=== PATIENT | female | born 1940 | race Caucasian/White ===

== ENCOUNTER → 2023-09-24 15:25 | Outpatient (REF) | payer MEDICARE, OTHER, SELFPAY ==
[2023-09-24 15:42] LABS: % Basophils 0.7 % (0-2); % Immature Granulocytes 0.7 % (0-0.5); % Lymphocytes 18.6 % (20.5-51.1); % Monocytes 8.6 % (1.7-9.3); % Neutrophils 68.4 % (42.2-75.2); Absolute Basophils 0.1 10^3/uL (0-0.2); Absolute Eosinophils 0.2 10^3/uL (0-0.7); Absolute Immature Granulocytes 0.1 10^3/uL (0-0.05); Absolute Lymphocytes 1.3 10^3/uL (1.2-3.4); Absolute Monocytes 0.6 10^3/uL (0.1-0.6); Absolute Neutrophils 4.8 10^3/uL (1.4-6.5); Hematocrit 36.3 % (37.0-47.0); Hemoglobin 12.3 g/dL (12.0-16.0); Mean Corp Hgb Conc. 33.9 g/dL (33.0-37.0); Mean Corpuscular Hgb 31.9 pg (27.0-31.0); Nucleated Red Blood Cells % 0 %; Platelet Count 206 10^3/uL (130-400); Red Blood Cell Count 3.86 10^6/uL (4.20-5.40); Red Cell Dist. Width 13.6 % (11.5-14.5)
[2023-09-24 16:01] LABS: ALT (SGPT) 16 U/L (0-35); AST (SGOT) 16 U/L (14-36); Albumin 3.6 g/dl (3.5-5.0); Alkaline Phosphatase 173 U/L (38-126); Blood Urea Nitrogen 20 mg/dl (7-17); Carbon Dioxide 23 mmol/L (22-30); Chloride 102 mmol/L (98-107); Glucose 268 mg/dl (70-99); HDL Cholesterol 68 mg/dl; LDL Cholesterol, Calculated 134 mg/dl; Potassium 4.3 mmol/L (3.5-5.1); Sodium 134 mmol/L (135-145); Total Bilirubin 0.6 mg/dl (0.2-1.3); Total Cholesterol 233 mg/dl (50-199); Triglyceride 155 mg/dl (10-149); Very Low Density Lipoprotein 31 mg/dl (0-30); eGFR > 60.00
[2023-09-24 16:17] LABS: Free T4 1.25 ng/dl (0.78-2.19)
[2023-09-24 16:31] LABS: TSH 2.99 uIU/ml (0.47-4.68)
[2023-09-25 09:24] LABS: Glycohemoglobin (HgbA1c) 9.4 % (4.0-5.6)
== END ==
LOC: OLABLV 15:25
PROVIDERS: ATTENDING PHYSICIAN Internal Medicine
DX: E78.5 Hyperlipidemia, unspecified (principal); E03.9 Hypothyroidism, unspecified; E11.9 Type 2 diabetes mellitus without complications
CPT/HCPCS: 36415; 80053; 80061; 83036; 84439; 84443; 85025

== ENCOUNTER → 2023-09-25 11:14 | Outpatient (REF) | payer MEDICARE, OTHER, SELFPAY ==
[2023-09-25 12:31] LABS: Microalbumin, Random Urine 0.6 mg/dl (0.6-1.7)
== END ==
LOC: OLABLV 11:14
PROVIDERS: ATTENDING PHYSICIAN Internal Medicine
DX: R80.1 Persistent proteinuria, unspecified (principal)
CPT/HCPCS: 82043

== ENCOUNTER → 2023-10-01 09:30 | Outpatient (REF) | payer MEDICARE, OTHER, SELFPAY ==
[2023-10-01 11:21] LABS: Blood Urea Nitrogen 19 mg/dl (7-17); Calcium 9.2 mg/dl (8.4-10.2); Carbon Dioxide 23 mmol/L (22-30); Chloride 105 mmol/L (98-107); Glucose 240 mg/dl (70-99); Potassium 4.4 mmol/L (3.5-5.1); Sodium 133 mmol/L (135-145); eGFR > 60.00
== END ==
LOC: OLABLV 09:30
PROVIDERS: ATTENDING PHYSICIAN Registered Nurse
DX: R60.9 Edema, unspecified (principal)
CPT/HCPCS: 36415; 80048

== ENCOUNTER → 2023-10-03 10:52 | Outpatient (REF) | payer MEDICARE, OTHER, SELFPAY ==
[2023-10-03 13:02] LABS: Blood Urea Nitrogen 22 mg/dl (7-17); Calcium 8.9 mg/dl (8.4-10.2); Carbon Dioxide 23 mmol/L (22-30); Chloride 107 mmol/L (98-107); Glucose 263 mg/dl (70-99); Potassium 4.2 mmol/L (3.5-5.1); Sodium 138 mmol/L (135-145); eGFR > 60.00
== END ==
LOC: OLABLV 10:52
PROVIDERS: ATTENDING PHYSICIAN Registered Nurse
DX: I51.89 Other ill-defined heart diseases (principal)
CPT/HCPCS: 36415; 80048

== ENCOUNTER → 2023-12-31 10:32 | Outpatient (REF) | payer MEDICARE, SELFPAY ==
[2023-12-31 11:56] LABS: ALT (SGPT) 10 U/L (0-35); AST (SGOT) 16 U/L (14-36); Albumin 3.5 g/dl (3.5-5.0); Alkaline Phosphatase 162 U/L (38-126); Blood Urea Nitrogen 17 mg/dl (7-17); Calcium 9.2 mg/dl (8.4-10.2); Carbon Dioxide 24 mmol/L (22-30); Chloride 108 mmol/L (98-107); Glucose 236 mg/dl (70-99); Potassium 3.9 mmol/L (3.5-5.1); Sodium 140 mmol/L (135-145); Total Bilirubin 0.7 mg/dl (0.2-1.3); Total Protein 5.9 g/dl (6.3-8.2); eGFR > 60.00
[2023-12-31 12:48] LABS: Glycohemoglobin (HgbA1c) 11.9 % (4.0-5.6)
== END ==
LOC: OLABLV 10:32
PROVIDERS: ATTENDING PHYSICIAN Internal Medicine
DX: E11.9 Type 2 diabetes mellitus without complications (principal)
CPT/HCPCS: 36415; 80053; 83036

== ENCOUNTER 2024-03-07 17:56 | Emergency (ER) | payer MEDICARE, OTHER, SELFPAY ==
[2024-03-07 18:08] VITALS: BP 116/65
[2024-03-07 18:09] VITALS: BMI 25.9
--- NOTE | 2024-03-07 18:16 | ED.GENMED ---
History of Present Illness
General
Chief Complaint: Fall
Source: patient
Exam Limitations: none
Time Seen by Provider: 03/07/24 17:56
History of Present Illness
History of Present Illness:
This is a 83 year old female that is brought in by ambulance with c/o fall. States that she was going to her closet with her walker and her knee's started to give out and she fell down on her knee's and then her head hit the wall of the closet.
States that there was no LOC. States that she was unable to get up. States that she has a slight headache, lower neck discomfort and that she hit the left forehead but her headache in on the top back of her head. Denies any fever, chills, chest
pain, SOB, abd pain, nausea, vomiting, diarrhea, dizziness. urinary burning.
Past History
Past History
ED Past Medical History: CVA, HTN, Hypercholesterolemia, NIDDM, Hypothyroidism and Other (Parkinson's disease, Headache, Amnesia, UTI)
ED Past Surgical History: Gynecological (Tereso ovaries removed, Left and right Lumpectomy) and Other (Abd surgery with endometriosis, Tereso cataracts)
Social History
Tobacco: Former smoker
Alcohol: Occasional
Personal:
Living: custodial
Review of Systems
Review of Systems
All Other Systems: ROS reviewed and negative except as documented in HPI and ROS
Constitutional: Reports no symptoms; Denies fever or chills
EENT: Reports no symptoms
Respiratory: Reports no symptoms; Denies cough or trouble breathing
Cardiac: Reports no symptoms; Denies chest pain
ABD/GI: Reports no symptoms; Denies abdominal pain, nausea, vomiting or diarrhea
: Reports no symptoms; Denies dysuria, frequency or urgency
Musculoskeletal: Reports other (Slight cervical neck tenderness)
Skin: Reports no symptoms
Neurological: Reports headache; Denies dizzy
Psychiatric: Reports no symptoms
Phy Exam
General Physical Exam
General Presentation: well appearing and no apparent distress
General age: appears stated age
General Skin: warm and dry
General Habitus: elderly
General Mental: alert
General Hydration: dry mucous membranes
ENT Exam
ENT Exam: TM's normal, pharynx normal and neck supple
Eye Exam
Eye Exam: EOMI
Cardiovascular Exam
Cardiovascular Exam: regular rate/rhythm and normal peripheral pulses
Pulmonary Exam
Pulmonary Exam: lungs clear, no respiratory distress, no rales, chest non tender, no crackles, no rhonchi, no wheezing and no cough
Gastrointestinal Exam
Gastrointestinal Exam: normal bowel sounds, non tender, soft, no organomegaly, no pulsatile mass and non distended
Musculoskeletal Exam
Musculoskeletal Exam: full ROM, edema (+1 pitting edema of the lower legs, ) and other (Negative cervical neck or shoulder tenderness with palpation. Patient can cross over abduct, Flex elbows, Flex knee's, inversion or eversion without discomfort)
Skin Exam
Skin Exam: normal color, warm/dry, no rash and no petechia
Psychiatric Exam
Psychiatric Exam: normal mood/affect
Course
Orders/Labs/Results
Orders:
Orders
03/07/24 18:08
CT Cervical Spine W/o Iv Contr Urgent
Comment:
Reason For Exam: Fall, neck discomfot
03/07/24 18:09
CT Head W/o Iv Contrast Urgent
Comment: On plavix
Reason For Exam: fall hitting head.
Vital Signs
Initial and Last Documented VS:
Initial Vital Signs
Pulse Resp Pulse Ox
88 17 99
03/07/24 18:03 03/07/24 18:03 03/07/24 18:03
Last Documented Vital Signs
Temp Pulse Resp BP Pulse Ox
97.8 F 78 11 130/71 99
03/07/24 23:14 03/07/24 21:03 03/07/24 19:19 03/07/24 23:11 03/07/24 23:14
MDM/Problems Addressed
Differential Diagnosis Includes:
accidental fall, Head contusion
MDM/Problems Addressed:
This is a 83 year old female that comes in with c/o fall. States that her knee's gave out on her and she fell down on her knees and then her head hit the closet wall.
Will get CT head and Cervical spine.
back into see patient. Explained that the CT of the head and cervical spine are negative for any acute process. Will walk patient with walker and if able to walk will discharge home.
Chronic conditions affecting care:
Parkinson's
Acute Exacerbation and/or Progression of Chronic Illness:
Parkinson's
*Radiology
Radiology exam reviewed: radiology read reviewed (CT head-There are no acute intracranial abnormalities. There is moderate diffuse cortical atrophy with moderate nonspecific white matter changes as described above. Left maxillary sinusitis. CT
cervical spine- no acute osseous abnormalities. Muiltilevel cervical degenerative disc disease and ) and other (CT cervical neck cont- and degenerative facet joint disease as outlined above. )
*Pulse Oximetry
Patient hypoxic: no
*EKG
Interpreted by ED Provider?: NA
Rate: EKG- N/A
*Business Development Engineer Interpretation
Rate: normal
Heart Rate: 86
Rhythm: sinus
*Critical Care Note
Total Time (30-74mins, 75-104mins- exclusive of procedures): Not Applicable
ED Attending Note
-
Portions of this chart may have been created with voice recognition software.� Occasional wrong word or��sound alike� substitutions may have occurred due to the inherent limitations of voice recognition software.
Discharge Plan
Departure
Patient Disposition: Prison/SNF
Date of Disposition: 03/07/24
Time of Disposition: 20:50
Patient with high blood pressure during this ER visit?: No
Condition: Good
Covid-19: Not Applicable
Discharge Problem:
Accidental fall
Instructions: Preventing falls in adults
Prescriptions:
No Action
aspirin 325 MG tablet
325 mg PO DAILY
glyburide 1.25 MG tablet
1.25 mg PO DAILY
ropinirole 1 mg Tablet
1 mg PO BID
cyanocobalamin (vitamin B-12) [Vitamin B-12] 1,000 mcg Tablet
1,000 mcg PO DAILY
clopidogrel [Plavix] 75 mg Tablet
75 mg PO DAILY
omeprazole 40 mg Capsule,Delayed Release(Dr/Ec)
40 mg PO QPM
levothyroxine 75 mcg Tablet
75 mcg PO DAILY
lisinopril 30 mg Tablet
30 mg PO DAILY
carbidopa-levodopa 25-100 mg Tablet
2 tab PO TID
fluticasone propionate 50 mcg/actuation [place],Suspension
1 spray INTRANASAL DAILY
godpilnlnmr-mzjvoazqa-qkn C-Mn [Glucosamine 1500 Complex] 500-400 mg Capsule
1 cap PO QPM
Systane (propylene glycol) 0.4-0.3 % Drops
1 drp BOTH EYES BID
rosuvastatin 20 mg Tablet
20 mg PO HS
memantine 5 mg Tablet
5 mg PO BID
cholecalciferol (vitamin D3) [Vitamin D3] 50 mcg (2,000 unit) Capsule
50 mcg PO DAILY
PreserVision AREDS-2
1 cap PO BID
Referrals:
Reece Perkins CRNP [Family Provider] - Call in 1-3 days for appt
Activity Restrictions/Additional Instructions:
As discussed, your CT of the head and cervical spine is negative for any acute process. Patient was OOB and able to walk with a walker. Patient to follow up with the family doctor. IF THERE IS ANY OTHER CONCERNS PLEASE RETURN TO THE EMERGENCY ROOM.
Interventions
Interventions:
*Risk Screen - Suicide Last Done: 03/07/24 18:04
*General Assessment Last Done: 03/07/24 18:04
*Neglect/Abuse Screening Last Done: 03/07/24 18:04
ED- Fall Risk Assessment Last Done: 03/07/24 18:05
ED-Musculoskeletal Assessment Last Done: 03/07/24 18:06
ED- Neurological Assessment Last Done: 03/07/24 18:05
ED-Skin Assessment Last Done: 03/07/24 18:06
Discharge Date and Time
Print Language: JAPANESE
[2024-03-07 23:11] VITALS: BP 130/71
[2024-03-07 23:20] VITALS: BP 130/71
== END 2024-03-07 23:22 ==
LOC: EMR 17:56
PROVIDERS: EMERGENCY PHYSICIAN Emergency Medicine; FAMILY PHYSICIAN Registered Nurse
DX: Z04.89 Encounter for examination and observation for other specified reasons (principal); W19.XXXA Unspecified fall, initial encounter; I10 Essential (primary) hypertension; E78.00 Pure hypercholesterolemia, unspecified; E11.36 Type 2 diabetes mellitus with diabetic cataract; E03.9 Hypothyroidism, unspecified; G20.A1 Parkinson's disease without dyskinesia, without mention of fluctuations; R41.3 Other amnesia; Z86.73 Personal history of transient ischemic attack (TIA), and cerebral infarction without residual deficits; Z87.440 Personal history of urinary (tract) infections; Z87.891 Personal history of nicotine dependence; Z90.722 Acquired absence of ovaries, bilateral
CPT/HCPCS: 99284; 70450; 72125

== ENCOUNTER → 2024-03-19 14:39 | Outpatient (REF) | payer MEDICARE, OTHER, SELFPAY ==
[2024-03-19 16:07] LABS: ALT (SGPT) 13 U/L (0-35); AST (SGOT) 16 U/L (14-36); Alkaline Phosphatase 142 U/L (38-126); Blood Urea Nitrogen 20 mg/dl (7-17); Calcium 9.3 mg/dl (8.4-10.2); Carbon Dioxide 26 mmol/L (22-30); Chloride 107 mmol/L (98-107); Glucose 205 mg/dl (70-99); Potassium 4.1 mmol/L (3.5-5.1); Sodium 141 mmol/L (135-145); Total Bilirubin 0.7 mg/dl (0.2-1.3); Total Protein 6.3 g/dl (6.3-8.2); eGFR > 60.00
[2024-03-20 15:55] LABS: Glycohemoglobin (HgbA1c) 10.6 % (4.0-5.6)
== END ==
LOC: OLABLV 14:39
PROVIDERS: ATTENDING PHYSICIAN Internal Medicine
DX: E11.9 Type 2 diabetes mellitus without complications (principal); E03.9 Hypothyroidism, unspecified
CPT/HCPCS: 36415; 80053; 83036

== ENCOUNTER → 2024-06-22 05:00 | Outpatient (REF) | payer MEDICARE, OTHER, SELFPAY ==
[2024-06-22 16:05] LABS: Urine Albumin 1+ (Neg - Trace); Urine Bilirubin Negative (Negative); Urine Character Slightly Cloudy (Clear); Urine Color Yellow; Urine Glucose 3+ (Negative); Urine Ketone Negative (Negative); Urine Leukocyte 2+ (Negative); Urine Nitrite Negative (Negative); Urine Occult Blood 1+ (Negative); Urine Specific Gravity 1.015 (<1.030); Urine Urobilinogen Negative (Neg - 1+)
[2024-06-22 16:13] LABS: Urine Bacteria Moderate (Negative); Urine Red Blood Cell 0-2 /HPF (0-2); Urine Squamous Cell 0-2 /LPF (Few); Urine White Cell 70-80 /HPF (0-5); Urine Yeast Many (Negative)
== END ==
LOC: OLABLV 05:00
PROVIDERS: ATTENDING PHYSICIAN Internal Medicine
DX: N39.0 Urinary tract infection, site not specified (principal)
CPT/HCPCS: 81003; 81015; 87086

== ENCOUNTER → 2024-06-30 09:44 | Outpatient (REF) | payer MEDICARE, OTHER, SELFPAY ==
[2024-06-30 10:23] LABS: % Basophils 0.8 % (0-2); % Immature Granulocytes 0.5 % (0-0.5); % Lymphocytes 27.9 % (20.5-51.1); % Monocytes 8.8 % (1.7-9.3); Absolute Basophils 0.1 10^3/uL (0-0.2); Absolute Eosinophils 0.2 10^3/uL (0-0.7); Absolute Lymphocytes 1.8 10^3/uL (1.2-3.4); Absolute Monocytes 0.6 10^3/uL (0.1-0.6); Absolute Neutrophils 3.8 10^3/uL (1.4-6.5); Hematocrit 38.1 % (37.0-47.0); Hemoglobin 12.6 g/dL (12.0-16.0); Mean Corp Hgb Conc. 33.1 g/dL (33.0-37.0); Mean Corpuscular Hgb 31.4 pg (27.0-31.0); Mean Platelet Volume 12.7 fL (7.4-10.4); Nucleated Red Blood Cells % 0 %; Platelet Count 207 10^3/uL (130-400); Red Blood Cell Count 4.01 10^6/uL (4.20-5.40); Red Cell Dist. Width 13.5 % (11.5-14.5); White Blood Cell Count 6.4 10^3/uL (4.8-10.8)
[2024-06-30 10:36] LABS: ALT (SGPT) < 10 U/L (0-35); AST (SGOT) 15 U/L (14-36); Albumin 3.8 g/dl (3.5-5.0); Alkaline Phosphatase 101 U/L (38-126); Blood Urea Nitrogen 24 mg/dl (7-17); Calcium 9.4 mg/dl (8.4-10.2); Carbon Dioxide 26 mmol/L (22-30); Chloride 108 mmol/L (98-107); GGTP 17 U/L (12-43); Glucose 129 mg/dl (70-99); HDL Cholesterol 52 mg/dl; LDL Cholesterol, Calculated 147 mg/dl; Potassium 4.4 mmol/L (3.5-5.1); Sodium 143 mmol/L (135-145); Total Bilirubin 0.7 mg/dl (0.2-1.3); Total Cholesterol 231 mg/dl (50-199); Total Protein 6.1 g/dl (6.3-8.2); Triglyceride 161 mg/dl (10-149); Very Low Density Lipoprotein 32 mg/dl (0-30); eGFR > 60.00
[2024-06-30 11:06] LABS: TSH Reflex To Free T4 1.77 uIU/ml (0.47-4.68)
[2024-06-30 11:25] LABS: Vitamin B12 924 pg/ml (239-931)
[2024-06-30 14:31] LABS: Glycohemoglobin (HgbA1c) 8.6 % (4.0-5.6)
== END ==
LOC: OLABLV 09:44
PROVIDERS: ATTENDING PHYSICIAN Registered Nurse
DX: I51.89 Other ill-defined heart diseases (principal); E11.65 Type 2 diabetes mellitus with hyperglycemia; E53.8 Deficiency of other specified B group vitamins; G20.A2 Parkinson's disease without dyskinesia, with fluctuations; E11.9 Type 2 diabetes mellitus without complications; E11.319 Type 2 diabetes mellitus with unspecified diabetic retinopathy without macular edema; I10 Essential (primary) hypertension; E78.2 Mixed hyperlipidemia
CPT/HCPCS: 36415; 80053; 80061; 82607; 82977; 83036; 84443; 85025

== ENCOUNTER 2024-07-13 19:24 | Emergency (ER) | payer MEDICARE, OTHER, SELFPAY ==
--- NOTE | 2024-07-13 19:28 | ED.GENMED ---
History of Present Illness
General
Chief Complaint: Fall
Source: patient
Exam Limitations: none
Time Seen by Provider: 07/13/24 19:25
History of Present Illness
History of Present Illness:
See MDM
Past History
Past History
ED Past Medical History: CVA, HTN, Hypercholesterolemia, NIDDM, Hypothyroidism and Other (Parkinson's disease, Headache, Amnesia, UTI)
ED Past Surgical History: Gynecological (Tereso ovaries removed, Left and right Lumpectomy) and Other (Abd surgery with endometriosis, Tereso cataracts)
Social History
Tobacco: Former smoker
Alcohol: Occasional
Personal:
Living: [facility]
Phy Exam
Physical Exam
Physical Exam:
See MDM
Course
Orders/Labs/Results
Orders:
Orders
07/13/24 19:26
Electrocardiogram (*1) Urgent
Reason for Study: Syncope
EKG- Treatment ONCE
Knee, Left 4 or More Views [CR Knee - Left 4 Or More View*] Urgent
Comment:
Reason For Exam: fall, knee pain
07/13/24 19:31
Ketorolac [Toradol] 15 mg IV NOW STA
07/13/24 19:45
Basic Metabolic Panel Urgent
Complete Blood Count/With Diff Urgent
Abnormal Lab Results
07/13/24
19:45
RBC 4.16 L 10^6/uL
(4.20-5.40)
MCH 32.0 H pg
(27.0-31.0)
MCHC 32.8 L g/dL
(33.0-37.0)
MPV 12.0 H fL
(7.4-10.4)
Absolute Monos (auto) 0.7 H 10^3/uL
(0.1-0.6)
Carbon Dioxide 21 L mmol/L
(22-30)
BUN 28 H mg/dl
(7-17)
Glucose 285 H mg/dl
(70-99)
07/13/24 19:45
07/13/24 19:45
Vital Signs
Initial and Last Documented VS:
Initial Vital Signs
Temp Pulse Resp BP Pulse Ox
97.4 F 91 16 110/55 99
07/13/24 19:29 07/13/24 19:29 07/13/24 19:29 07/13/24 19:29 07/13/24 19:29
Last Documented Vital Signs
Temp Pulse Resp BP Pulse Ox
97.4 F 91 16 110/55 99
07/13/24 19:29 07/13/24 19:29 07/13/24 19:29 07/13/24 19:29 07/13/24 20:00
MDM/Problems Addressed
Differential Diagnosis Includes:
HPI and MDM Narrative:
83-year-old female presenting with an unwitnessed fall. Patient cannot recollect how she fell but complains of left knee pain. Patient states she did not hit her head. On exam, she is well-appearing nontoxic and answering questions appropriately.
Given her age and fall, will obtain EKG and basic blood work. No evidence of head trauma noted. She does have a skin tear to her left knee. Will obtain x-ray
Physical exam
General: Well appearing and non-toxic
HEENT: protecting airway
Neck: appears supple
CV: No evidence of cyanosis. Regular rate and rhythm
Resp: No accessory muscle use
Abd: Non-distended
Extremities: Small abrasion to left anterior knee with mild ecchymosis. Distal extremity neurovascular
Neuro: alert
Psych: Normal affect
Skin: Intact
Problems Addressed including Acute and Chronic Conditions affecting care:
1. Unwitnessed fall
Acuity: acute
Prognosis: stable
Details: Given the knee injury, will obtain x-ray. Will obtain basic blood work and EKG
2. Hyperglycemia
Acuity: acute
Prognosis: stable
Details: Elevated blood sugar appears to be at baseline. No evidence of DKA. Discussed outpatient tighter blood sugar control
Updates
X-ray negative for fracture. Patient viktor well-appearing nontoxic and feels comfortable going home
Differential Diagnosis (but not limited to): Mechanical fall, syncope
Testing considered: CT head but she denies head trauma
Drug therapy (if applicable): OTC meds, please see d/c instruction regarding Rx drugs
Amount and/or Complexity of Data Reviewed
Clinical info obtained from: Patient
External data reviewed: N/A
Labs I independently reviewed (but not limited to): Elevated blood sugar
Radiology: X-ray independently reviewed: Left knee x-ray negative for fracture
Pulse Ox: not hypoxic
EKG independently reviewed: Sinus rhythm, normal axis, no STEMI
Assembly Press Operator: N/A
Critical Care: N/A
Risk of Complication:
Social Determinants of health: Good social support
Discussed with other providers: N/A
Escalation of Care includes Admit/Obs: After being observed in the Emergency Department, pt stable for discharge.
Occasional wrong word or 'sound a like' substitutions may have occurred due to the inherent limitations of voice recognition software. Read the chart carefully and recognize, using context, where substitutions have occurred.
*Critical Care Note
Total Time (30-74mins, 75-104mins- exclusive of procedures): Not Applicable
ED Attending Note
-
Portions of this chart may have been created with voice recognition software.� Occasional wrong word or��sound alike� substitutions may have occurred due to the inherent limitations of voice recognition software.
Discharge Plan
Departure
Patient Disposition: Home (Routine Discharge)
Date of Disposition: 07/13/24
Time of Disposition: 21:30
Patient with high blood pressure during this ER visit?: No
Discharge Problem:
Contusion of knee, left, Hyperglycemia
Instructions: Knee Pain ED, High Blood Sugar, Adult ED
Prescriptions:
No Action
aspirin 325 MG tablet
325 mg PO DAILY
glyburide 1.25 MG tablet
1.25 mg PO DAILY
ropinirole 1 mg Tablet
1 mg PO BID
cyanocobalamin (vitamin B-12) [Vitamin B-12] 1,000 mcg Tablet
1,000 mcg PO DAILY
clopidogrel [Plavix] 75 mg Tablet
75 mg PO DAILY
omeprazole 40 mg Capsule,Delayed Release(Dr/Ec)
40 mg PO QPM
levothyroxine 75 mcg Tablet
75 mcg PO DAILY
lisinopril 30 mg Tablet
30 mg PO DAILY
carbidopa-levodopa 25-100 mg Tablet
2 tab PO TID
fluticasone propionate 50 mcg/actuation [place],Suspension
1 spray INTRANASAL DAILY
gtcriiwmwwj-qcswabuga-jyt C-Mn [Glucosamine 1500 Complex] 500-400 mg Capsule
1 cap PO QPM
Systane (propylene glycol) 0.4-0.3 % Drops
1 drp BOTH EYES BID
rosuvastatin 20 mg Tablet
20 mg PO HS
memantine 5 mg Tablet
5 mg PO BID
cholecalciferol (vitamin D3) [Vitamin D3] 50 mcg (2,000 unit) Capsule
50 mcg PO DAILY
PreserVision AREDS-2
1 cap PO BID
Referrals:
Reece Perkins CRNP [Family Provider] -
Activity Restrictions/Additional Instructions:
Please return for any worsening symptoms.
You may return at any time if you have further concerns.
Please follow up with your doctor at the first available appointment, preferably this week. Please talk to your doctor about better blood sugar control.
Thank you for choosing [facility].
Interventions
Interventions:
*Risk Screen - Suicide Last Done: 07/13/24 19:29
*General Assessment Last Done: 07/13/24 19:29
*Neglect/Abuse Screening Last Done: 07/13/24 19:29
ED- Fall Risk Assessment Last Done: 07/13/24 19:29
*ED COVID-19 Vaccine History Last Done: 07/13/24 19:29
ED-Musculoskeletal Assessment Last Done: 07/13/24 19:36
ED- Neurological Assessment Last Done: 07/13/24 19:35
ED-Skin Assessment Last Done: 07/13/24 19:36
Discharge Date and Time
Print Language: WELSH
[2024-07-13 19:29] VITALS: BP 110/55; BMI 23.9
[2024-07-13] MEDS: TORADOL 15 MG IV (19:42)
[2024-07-13 19:50] LABS: % Basophils 0.7 % (0-2); % Eosinophils 1.6 % (0-6); % Immature Granulocytes 0.5 % (0-0.5); % Lymphocytes 22.9 % (20.5-51.1); % Monocytes 8.8 % (1.7-9.3); % Neutrophils 65.5 % (42.2-75.2); Absolute Basophils 0.1 10^3/uL (0-0.2); Absolute Eosinophils 0.1 10^3/uL (0-0.7); Absolute Lymphocytes 1.7 10^3/uL (1.2-3.4); Absolute Monocytes 0.7 10^3/uL (0.1-0.6); Hematocrit 40.6 % (37.0-47.0); Hemoglobin 13.3 g/dL (12.0-16.0); Mean Corp Hgb Conc. 32.8 g/dL (33.0-37.0); Mean Corpuscular Volume 97.6 fL (81.0-99.0); Nucleated Red Blood Cells % 0 %; Platelet Count 209 10^3/uL (130-400); Red Blood Cell Count 4.16 10^6/uL (4.20-5.40); Red Cell Dist. Width 13.7 % (11.5-14.5); White Blood Cell Count 7.6 10^3/uL (4.8-10.8)
[2024-07-13 20:16] LABS: Blood Urea Nitrogen 28 mg/dl (7-17); Calcium 9.4 mg/dl (8.4-10.2); Carbon Dioxide 21 mmol/L (22-30); Chloride 106 mmol/L (98-107); Estimated Creatinine Clearance 49 ml/min; Glucose 285 mg/dl (70-99); Sodium 143 mmol/L (135-145); eGFR > 60.00
[2024-07-13 21:44] VITALS: BP 137/73
== END 2024-07-13 22:51 ==
LOC: EMR 19:24
PROVIDERS: EMERGENCY PHYSICIAN Student in an Organized Health Care Education/Training Program; FAMILY PHYSICIAN Registered Nurse
DX: S80.02XA Contusion of left knee, initial encounter (principal); S80.212A Abrasion, left knee, initial encounter; W19.XXXA Unspecified fall, initial encounter; E11.65 Type 2 diabetes mellitus with hyperglycemia; E78.00 Pure hypercholesterolemia, unspecified; I10 Essential (primary) hypertension; E03.9 Hypothyroidism, unspecified; Z86.73 Personal history of transient ischemic attack (TIA), and cerebral infarction without residual deficits; G20.A1 Parkinson's disease without dyskinesia, without mention of fluctuations; Z87.891 Personal history of nicotine dependence
CPT/HCPCS: 99285; 73564; 80048; 85025; 93005

== ENCOUNTER 2024-07-19 19:42 | Emergency (ER) | payer MEDICARE, OTHER, SELFPAY ==
[2024-07-19 19:48] VITALS: BP 112/61
--- NOTE | 2024-07-19 20:14 | ED.GENMED ---
ED Provider Triage
<Nathanael Pozo PA-C - Last Filed: 07/19/24 20:15>
-
Patient seen by provider in Triage?: Seen in Triage
Attestation: A medical screening examination has been initiated by a qualified medical provider. Based on the assessment performed at this time, it has been determined that an emergent medical condition may exist and the patient has been informed
that further medical evaluation and possible additional diagnostic testing may be needed.
HPI: 83-year-old female presented emergency department for evaluation following an accidental fall and injuring her left knee. Patient has history of Parkinson's disease. States she did not hit her head and is not on any anticoagulants. Only
concern at this time is anterior left knee pain. Attempted to get patient up as well as having significant difficulty standing on her own and needed significant assistance to get up.
GENERAL: Alert , in no apparent distress
EYE: No visual abnormalities.
NECK: Trachea midline
ENT: No visible abnormalities.
LUNGS: No acute respiratory distress
NEUROLOGICAL: Alert and oriented
SKIN: Skin intact. No visible changes.
MUSCULOSKELETAL: Moving extremities normally
PSYCH: Normal and appropriate interaction.
This is a medical evaluation conducted in person to initiate diagnostic evaluation and provide initial therapeutics. Please see further documentation by the treating clinician.
History of Present Illness
<Nathanael Pozo PA-C - Last Filed: 07/19/24 20:15>
General
Chief Complaint: Fall
Time Seen by Provider: 07/19/24 22:17
<Brandyn De Jesus DO - Last Filed: 07/19/24 22:37>
General
Source: patient
Exam Limitations: none
History of Present Illness
History of Present Illness:
See MDM
Past History
<Nathanael Pozo PA-C - Last Filed: 07/19/24 20:15>
Past History
ED Past Medical History: CVA, HTN, Hypercholesterolemia, NIDDM, Hypothyroidism and Other (Parkinson's disease, Headache, Amnesia, UTI)
ED Past Surgical History: Gynecological (Tereso ovaries removed, Left and right Lumpectomy) and Other (Abd surgery with endometriosis, Tereso cataracts)
Social History
Tobacco: Former smoker
Alcohol: Occasional
Personal:
Living: [facility]
Phy Exam
<Brandyn De Jesus, DO - Last Filed: 07/19/24 22:37>
Physical Exam
Physical Exam:
See MDM
Course
<Natahnael Pozo PA-C - Last Filed: 07/19/24 20:15>
Orders/Labs/Results
Orders:
Orders
07/19/24 19:53
Knee, Left 4 or More Views [CR Knee - Left 4 Or More View*] Urgent
Comment:
Reason For Exam: injury and pain
07/19/24 22:19
Ibuprofen [Motrin] 400 mg PO NOW STA
Vital Signs
Initial and Last Documented VS:
Initial Vital Signs
Temp Pulse Resp BP Pulse Ox
97.7 F 86 20 112/61 98
07/19/24 19:48 07/19/24 19:48 07/19/24 19:48 07/19/24 19:48 07/19/24 19:48
Last Documented Vital Signs
Temp Pulse Resp BP Pulse Ox
97.7 F 86 20 112/61 98
07/19/24 19:48 07/19/24 19:48 07/19/24 19:48 07/19/24 19:48 07/19/24 19:48
<Brandyn De Jesus, - Last Filed: 07/19/24 22:37>
Orders/Labs/Results
Orders:
Orders
07/19/24 19:53
Knee, Left 4 or More Views [CR Knee - Left 4 Or More View*] Urgent
Comment:
Reason For Exam: injury and pain
07/19/24 22:19
Ibuprofen [Motrin] 400 mg PO NOW STA
Vital Signs
Initial and Last Documented VS:
Initial Vital Signs
Temp Pulse Resp BP Pulse Ox
97.7 F 86 20 112/61 98
07/19/24 19:48 07/19/24 19:48 07/19/24 19:48 07/19/24 19:48 07/19/24 19:48
Last Documented Vital Signs
Temp Pulse Resp BP Pulse Ox
97.7 F 86 20 112/61 98
07/19/24 19:48 07/19/24 19:48 07/19/24 19:48 07/19/24 19:48 07/19/24 19:48
<Brandyn De Jesus, DO - Last Filed: 07/19/24 22:37>
MDM/Problems Addressed
Differential Diagnosis Includes:
HPI and MDM Narrative:
83-year-old female presenting for left knee pain. She was seen a few days prior for the same complaint. At that time, she had an x-ray showing no evidence of fracture. Patient returns stating it still hurts. On exam, she is well-appearing.
There is mild tenderness to the patella but the x-ray again shows no fracture. Will give dose of Motrin
Physical exam
General: Well appearing and non-toxic
HEENT: protecting airway
Neck: appears supple
CV: No evidence of cyanosis
Resp: No accessory muscle use
Abd: Non-distended
Extremities: Mild tenderness to left patella. No effusion. Distal extremity neurovascularly intact
Neuro: alert
Psych: Normal affect
Skin: Intact
Problems Addressed including Acute and Chronic Conditions affecting care:
1. Left knee pain
Acuity: subacute
Prognosis: stable
Details: X-ray again shows no evidence of fracture. Discussed pain control and return precautions. Discussed follow-up with orthopedics
Differential Diagnosis (but not limited to): Knee contusion, knee sprain
Testing considered: Knee CT
Drug therapy (if applicable): OTC meds, please see d/c instruction regarding Rx drugs
Amount and/or Complexity of Data Reviewed
Clinical info obtained from: Patient
External data reviewed: N/A
Labs I independently reviewed (but not limited to): N/A
Radiology: X-ray independently reviewed: Left knee x-ray negative for fracture
Pulse Ox: not hypoxic
EKG independently reviewed: N/A
Gas Scrubber Operator: N/A
Critical Care: N/A
Risk of Complication:
Social Determinants of health: Good social support
Discussed with other providers: N/A
Escalation of Care includes Admit/Obs: After being observed in the Emergency Department, pt stable for discharge.
Occasional wrong word or 'sound a like' substitutions may have occurred due to the inherent limitations of voice recognition software. Read the chart carefully and recognize, using context, where substitutions have occurred.
<Brandyn De Jesus DO - Last Filed: 07/19/24 22:37>
*Critical Care Note
Total Time (30-74mins, 75-104mins- exclusive of procedures): Not Applicable
ED Attending Note
<Nathanael Pozo PA-C - Last Filed: 07/19/24 20:15>
-
Portions of this chart may have been created with voice recognition software.� Occasional wrong word or��sound alike� substitutions may have occurred due to the inherent limitations of voice recognition software.
Discharge Plan
Departure
Patient Disposition: Home (Routine Discharge)
Date of Disposition: 07/19/24
Time of Disposition: 22:36
Patient with high blood pressure during this ER visit?: No
Discharge Problem:
Contusion of left knee
Instructions: Contusion (DC)
Prescriptions:
No Action
aspirin 325 MG tablet
325 mg PO DAILY
glyburide 1.25 MG tablet
1.25 mg PO DAILY
ropinirole 1 mg Tablet
1 mg PO BID
cyanocobalamin (vitamin B-12) [Vitamin B-12] 1,000 mcg Tablet
1,000 mcg PO DAILY
clopidogrel [Plavix] 75 mg Tablet
75 mg PO DAILY
omeprazole 40 mg Capsule,Delayed Release(Dr/Ec)
40 mg PO QPM
levothyroxine 75 mcg Tablet
75 mcg PO DAILY
lisinopril 30 mg Tablet
30 mg PO DAILY
carbidopa-levodopa 25-100 mg Tablet
2 tab PO TID
fluticasone propionate 50 mcg/actuation [place],Suspension
1 spray INTRANASAL DAILY
gtxpmmfovwr-tzmghpdnu-ljj C-Mn [Glucosamine 1500 Complex] 500-400 mg Capsule
1 cap PO QPM
Systane (propylene glycol) 0.4-0.3 % Drops
1 drp BOTH EYES BID
rosuvastatin 20 mg Tablet
20 mg PO HS
memantine 5 mg Tablet
5 mg PO BID
cholecalciferol (vitamin D3) [Vitamin D3] 50 mcg (2,000 unit) Capsule
50 mcg PO DAILY
PreserVision AREDS-2
1 cap PO BID
Referrals:
Polo Nevarez MD [Active] -
Activity Restrictions/Additional Instructions:
Please return for any worsening symptoms.
You may return at any time if you have further concerns.
Please follow up with your doctor at the first available appointment, preferably this week.
Please make an appointment to see the orthopedist.
Thank you for choosing [facility].
Interventions
Interventions:
*Risk Screen - Suicide Last Done: 07/19/24 19:48
*General Assessment Last Done: 07/19/24 19:48
*Neglect/Abuse Screening Last Done: 07/19/24 19:48
*ED COVID-19 Vaccine History Last Done: 07/19/24 19:48
Discharge Date and Time
Print Language: ALB[place]
[2024-07-19 22:25] VITALS: BMI 22.8
[2024-07-19 22:27] VITALS: BP 133/59
[2024-07-19] MEDS: MOTRIN 400 MG PO (22:33)
[2024-07-20 01:00] VITALS: BP 124/61
== END 2024-07-20 02:30 | disposition home or self-care (01) ==
LOC: EMR 19:42
PROVIDERS: EMERGENCY PHYSICIAN Student in an Organized Health Care Education/Training Program
DX: S80.02XA Contusion of left knee, initial encounter (principal); W19.XXXA Unspecified fall, initial encounter; G20.A1 Parkinson's disease without dyskinesia, without mention of fluctuations; Z87.891 Personal history of nicotine dependence
CPT/HCPCS: 99283; 73564

== ENCOUNTER 2024-08-15 15:08 | Emergency (ER) | payer MEDICARE, OTHER, SELFPAY ==
[2024-08-15 15:10] VITALS: BP 117/58
--- NOTE | 2024-08-15 19:11 | ED.MUSCINJ ---
HPI-Injury
General
Chief Complaint: Fall
Source: patient, ambulance crew and intermediate
Exam Limitations: none
Time Seen by Provider: 08/15/24 17:24
Nursing documentation reviewed up to this point in time: agreed with
History of Present Illness-Injury
Is this injury a work related problem?: No
Is pt an associate of [facility]/[employer]?: No
Initial Injury comments:
Patient to ED s/p fall. She states she tripped. Complains of pain to her left ant. knee. Injury occurred just SMT OPERATOR
Past History
Past History
ED Past Medical History: CVA, HTN, Hypercholesterolemia, NIDDM, Hypothyroidism and Other (Parkinson's disease, Headache, Amnesia, UTI)
ED Past Surgical History: Gynecological (Tereso ovaries removed, Left and right Lumpectomy) and Other (Abd surgery with endometriosis, Tereso cataracts)
Social History
Tobacco: Former smoker
Alcohol: Occasional
Personal:
Living: intermediate
Review of Systems
Review of Systems
Allergies reviewed?: Yes
All Other Systems: ROS reviewed and negative except as documented in HPI and ROS
Constitutional: Reports no symptoms
Respiratory: Reports no symptoms
Cardiac: Reports no symptoms
ABD/GI: Reports no symptoms
Musculoskeletal: Reports joint pain (Pain to left ant. knee)
Skin: Reports other (abrasion to left ant. knee)
Neurological: Reports no symptoms
Psychiatric: Reports no symptoms
Musculoskeletal Injury Exam
Musculoskeletal Injury Exam
Left Anterior Knee:
Pain with Movement?: Moderate
Tender to palpation?: Moderate
Soft tissue swelling?: None
External deformity and angulation?: None
Joint effusion?: None
Contusion?: Moderate
Hematoma-local bleeding into tissue?: None
Strain- Sprain- Tear (Connective tissue injury)?: None
Crepitus with movement?: No
Joint instability?: No
Malalignment/deformity?: No
Range of motion: Full
Distal skin color and temperature: normal-warm & good color
Capillary Refill: normal
Normal distal neurovascular exam?: Yes
Peripheral Pulses: posterior tibial (left): 3+ and dorsalis pedis (left): 3+
Phy Exam
General Physical Exam
General Presentation: well appearing and no apparent distress
General age: appears stated age
General Skin: warm and dry
General Habitus: normal
General Mental: alert
Cardiovascular Exam
Cardiovascular Exam: regular rate/rhythm and no edema
Pulmonary Exam
Pulmonary Exam: no respiratory distress and chest non tender
Gastrointestinal Exam
Gastrointestinal Exam: non tender and soft
Neurological Exam
Neurological Exam: alert, CN II-XII intact, no motor deficits, no sensory deficits and speech normal
[place] Coma Scale
Eye Opening: Spontaneous
Verbal Response: Oriented
Motor Response: Obeys Commands
GCS Total Score: 15
Musculoskeletal Exam
Musculoskeletal Exam: full ROM, neuro vasc intact and other (Able to ambulate with walker)
Skin Exam
Skin Exam: normal color, warm/dry and no rash
Psychiatric Exam
Psychiatric Exam: normal mood/affect
Injury Course
Orders/Labs/Results
Orders:
Orders
08/15/24 15:12
Knee, Left 4 or More Views [CR Knee - Left 4 Or More View*] Urgent
Comment:
Reason For Exam: fall
08/15/24 18:04
Knee Immobilizer Left-Treatmen ONCE
*Radiology
Radiology exam reviewed: radiology read reviewed
*Pulse Oximetry
Patient hypoxic: no
*Critical Care Note
Total Time (30-74mins, 75-104mins- exclusive of procedures): Not Applicable
ED Attending Note
-
Portions of this chart may have been created with voice recognition software.� Occasional wrong word or��sound alike� substitutions may have occurred due to the inherent limitations of voice recognition software.
Discharge Plan
Departure
Patient Disposition: Home (Routine Discharge)
Date of Disposition: 08/15/24
Time of Disposition: 19:10
Patient with high blood pressure during this ER visit?: No
Condition: Good
Covid-19: Not Applicable
Discharge Problem:
Contusion of knee
Instructions: Contusion (DC), Preventing falls in adults, Using Cold for Pain
Prescriptions:
No Action
aspirin 325 MG tablet
325 mg PO DAILY
glyburide 1.25 MG tablet
1.25 mg PO DAILY
ropinirole 1 mg Tablet
1 mg PO BID
cyanocobalamin (vitamin B-12) [Vitamin B-12] 1,000 mcg Tablet
1,000 mcg PO DAILY
clopidogrel [Plavix] 75 mg Tablet
75 mg PO DAILY
omeprazole 40 mg Capsule,Delayed Release(Dr/Ec)
40 mg PO QPM
levothyroxine 75 mcg Tablet
75 mcg PO DAILY
lisinopril 30 mg Tablet
30 mg PO DAILY
carbidopa-levodopa 25-100 mg Tablet
2 tab PO TID
fluticasone propionate 50 mcg/actuation [place],Suspension
1 spray INTRANASAL DAILY
dsmznitzcla-wyqsdmxqf-iay C-Mn [Glucosamine 1500 Complex] 500-400 mg Capsule
1 cap PO QPM
Systane (propylene glycol) 0.4-0.3 % Drops
1 drp BOTH EYES BID
rosuvastatin 20 mg Tablet
20 mg PO HS
memantine 5 mg Tablet
5 mg PO BID
cholecalciferol (vitamin D3) [Vitamin D3] 50 mcg (2,000 unit) Capsule
50 mcg PO DAILY
PreserVision AREDS-2
1 cap PO BID
Referrals:
UNKNOWN - PT DOES,NOT KNOW [Family Provider] -
Activity Restrictions/Additional Instructions:
Followu p with your family doctor. Use knee brace as needed for comfort.
Interventions
Interventions:
*Risk Screen - Suicide Last Done: 08/15/24 15:10
*Neglect/Abuse Screening Last Done: 08/15/24 15:10
Discharge Date and Time
Print Language: [place]ET[place]ESE
[2024-08-15 19:56] VITALS: BP 118/62
== END 2024-08-15 20:36 | disposition home or self-care (01) ==
LOC: EMR 15:08
PROVIDERS: EMERGENCY PHYSICIAN Emergency Medicine
DX: S80.02XA Contusion of left knee, initial encounter (principal); W18.09XA Striking against other object with subsequent fall, initial encounter; Z87.891 Personal history of nicotine dependence
CPT/HCPCS: 99283; 29505; 73564

== ENCOUNTER 2024-08-22 03:18 | Emergency (ER) | payer MEDICARE, OTHER, SELFPAY ==
--- NOTE | 2024-08-22 03:20 | ED.GENMED ---
History of Present Illness
General
Chief Complaint: Fall
Time Seen by Provider: 08/22/24 03:19
History of Present Illness
History of Present Illness:
TIME OF INITIAL ENCOUNTER: 3:20 AM
HPI: Patient came in by ambulance from [facility]. She had been walking and then started walking backwards but then lost her balance and fell and struck the back of her head. Of note the patient is on aspirin and Plavix. She also
has a history of Parkinson's. She denies any other significant symptoms. She was here several times related to knee pain after traumas but overall states that her knees are doing better. She did have some earlier right thigh pain but currently
has no significant pain and was able to walk prior to arrival.
EXAM:
GENERAL: Well appearing in no distress
CERVICAL SPINE: No midline c-spine tenderness with excellent AROM
HEAD: No evidence of craniofacial trauma
CHEST: No chest wall tenderness, normal heart sounds
LUNGS: Equal lung sounds, no respiratory distress
ABDOMEN: No abdominal tenderness, no peritoneal signs
EXTREMITIES: Normal active range of motion, no tenderness, older appearing ecchymosis over the right knee, healing abrasion over the left knee
NEURO: Excellent strength all extremities, appropriate mental status, normal speech/language, minimal cognitive deficits but overall appears to give an appropriate history
NUMBER AND COMPLEXITY OF PROBLEMS ADDRESSED AT THE ENCOUNTER
� Chronic conditions affecting care: Parkinson's, memory impairment, high blood pressure, hyperlipidemia, diabetes
� Acute Exacerbation and/or Progression of Chronic Illness: This is an acute problem
� Differential Diagnosis includes: Intracranial hemorrhage, minor head injury, concussion, scalp contusion
AMOUNT AND/OR COMPLEXITY OF DATA TO BE REVIEWED AND ANALYZED
� I performed an independent evaluation of and my interpretation is:
EKG:
CT: CT head personally reviewed and I see no acute intracranial hemorrhage
X-rays:
Laboratory Studies:
Other:
� Review of other/old records: I reviewed records, the patient had multiple recent falls and was here several times for injury to the left knee felt to be related to a contusion
� Clinical information was obtained by an independent historian: EMS
� Prescriptions/Medications Considered but not given:
� Further testing considered but not performed:
RISK OF COMPLICATIONS AND/OR MORBIDITY OR MORTALITY OF PATIENT MANAGEMENT
� Social determinants of health affecting care: Resides at [facility]
� Discussion with other providers:
� Escalation of care including admission/observation vs risk of discharge considered: Given patient's age with head trauma on aspirin and Plavix, CT imaging obtained.
ANY OTHER UPDATES:
4:30 AM: I reassessed patient. No further complaints or changes in clinical condition. CT imaging reassuring.
Past History
Past History
ED Past Medical History: CVA, HTN, Hypercholesterolemia, NIDDM, Hypothyroidism and Other (Parkinson's disease, Headache, Amnesia, UTI)
ED Past Surgical History: Gynecological (Tereso ovaries removed, Left and right Lumpectomy) and Other (Abd surgery with endometriosis, Tereso cataracts)
Social History
Tobacco: Former smoker
Alcohol: Occasional
Personal:
Living: long term
Phy Exam
Physical Exam
Physical Exam:
See HPI
Course
Orders/Labs/Results
Orders:
Orders
08/22/24 03:30
CT Head W/o Iv Contrast Urgent
Comment:
Reason For Exam: head trauma aspirin plavix
Vital Signs
Initial and Last Documented VS:
Initial Vital Signs
Temp Pulse Resp BP Pulse Ox
36.5 C 79 18 124/62 97
08/22/24 03:23 08/22/24 03:23 08/22/24 03:23 08/22/24 03:23 08/22/24 03:23
Last Documented Vital Signs
Temp Pulse Resp BP Pulse Ox
36.5 C 79 18 106/61 99
08/22/24 03:23 08/22/24 04:00 08/22/24 03:23 08/22/24 04:19 08/22/24 04:20
*Critical Care Note
Total Time (30-74mins, 75-104mins- exclusive of procedures): Not Applicable
ED Attending Note
-
Portions of this chart may have been created with voice recognition software.� Occasional wrong word or��sound alike� substitutions may have occurred due to the inherent limitations of voice recognition software.
Discharge Plan
Departure
Patient Disposition: Home (Routine Discharge)
Date of Disposition: 08/22/24
Time of Disposition: 04:27
Patient with high blood pressure during this ER visit?: Yes
Discharge Problem:
Head injury
Instructions: Head Injury in Adults (DC), BLOOD PRESSURE
Prescriptions:
No Action
aspirin 325 MG tablet
325 mg PO DAILY
glyburide 1.25 MG tablet
1.25 mg PO DAILY
ropinirole 1 mg Tablet
1 mg PO BID
cyanocobalamin (vitamin B-12) [Vitamin B-12] 1,000 mcg Tablet
1,000 mcg PO DAILY
clopidogrel [Plavix] 75 mg Tablet
75 mg PO DAILY
omeprazole 40 mg Capsule,Delayed Release(Dr/Ec)
40 mg PO QPM
levothyroxine 75 mcg Tablet
75 mcg PO DAILY
lisinopril 30 mg Tablet
30 mg PO DAILY
carbidopa-levodopa 25-100 mg Tablet
2 tab PO TID
fluticasone propionate 50 mcg/actuation [place],Suspension
1 spray INTRANASAL DAILY
ervgtsrdjaf-yzbojufko-ydh C-Mn [Glucosamine 1500 Complex] 500-400 mg Capsule
1 cap PO QPM
Systane (propylene glycol) 0.4-0.3 % Drops
1 drp BOTH EYES BID
rosuvastatin 20 mg Tablet
20 mg PO HS
memantine 5 mg Tablet
5 mg PO BID
cholecalciferol (vitamin D3) [Vitamin D3] 50 mcg (2,000 unit) Capsule
50 mcg PO DAILY
PreserVision AREDS-2
1 cap PO BID
Activity Restrictions/Additional Instructions:
The CAT scan of the brain shows no acute traumatic abnormality. Return here if worse or other concerns.
Interventions
Interventions:
*Risk Screen - Suicide Last Done: 08/22/24 03:23
*General Assessment Last Done: 08/22/24 03:23
*Neglect/Abuse Screening Last Done: 08/22/24 03:23
ED- Fall Risk Assessment Last Done: 08/22/24 03:55
*ED COVID-19 Vaccine History Last Done: 08/22/24 03:57
ED-Musculoskeletal Assessment Last Done: 08/22/24 03:55
ED- Neurological Assessment Last Done: 08/22/24 03:55
ED-Skin Assessment Last Done: 08/22/24 03:55
Discharge Date and Time
Print Language: UPPER [place]ORBI[place]
[2024-08-22 03:23] VITALS: BP 124/62
[2024-08-22 04:19] VITALS: BP 106/61
[2024-08-22 05:00] VITALS: BP 106/84
[2024-08-22 06:00] VITALS: BP 116/55
[2024-08-22 07:00] VITALS: BP 108/47
[2024-08-22 07:30] VITALS: BP 108/47
== END 2024-08-22 10:28 | disposition home or self-care (01) ==
LOC: EMR 03:18
PROVIDERS: EMERGENCY PHYSICIAN Emergency Medicine; FAMILY PHYSICIAN Internal Medicine
DX: S09.90XA Unspecified injury of head, initial encounter (principal); W18.39XA Other fall on same level, initial encounter; I10 Essential (primary) hypertension; Z79.82 Long term (current) use of aspirin; Z79.01 Long term (current) use of anticoagulants; Z87.891 Personal history of nicotine dependence
CPT/HCPCS: 70450; 99284

== ENCOUNTER 2024-09-04 16:25 | Emergency (ER) | payer MEDICARE, OTHER, SELFPAY ==
[2024-09-04] VITALS (8 sets, daily range): BP systolic 96–149; BP diastolic 51–76; BMI 24.0
--- NOTE | 2024-09-04 16:50 | ED.GENMED ---
History of Present Illness
<Scarlett Mendes PA-C - Last Filed: 09/04/24 21:45>
General
Chief Complaint: Fall
Source: patient, ambulance crew and [facility]
Exam Limitations: dementia
Time Seen by Provider: 09/04/24 16:36
Nursing documentation reviewed up to this point in time: agreed with
History of Present Illness
History of Present Illness:
Patient is an 83-year-old female with history dementia, Parkinson's, diabetes presenting to the emergency department via EMS for evaluation after unwitnessed fall. Patient unable to contribute much to history given dementia. Did contact patient's
nurse who provided majority of history. Patient was apparently found down in her apartment around 4 PM. This fall was unwitnessed however patient was conscious and talking when staff found her. There was no evidence of head or extremity trauma.
Patient is on Plavix. They did however notice that she was mildly hypotensive.
Patient herself arrives in no apparent distress. She denies any headache, neck pain, chest pain, shortness of breath, abdominal pain, or pain to upper or lower extremities.
Past History
<Scarlett Mendes PA-C - Last Filed: 09/04/24 21:45>
Past History
ED Past Medical History: CVA, HTN, Hypercholesterolemia, NIDDM, Hypothyroidism and Other (Parkinson's disease, Headache, Amnesia, UTI)
ED Past Surgical History: Gynecological (Tereso ovaries removed, Left and right Lumpectomy) and Other (Abd surgery with endometriosis, Tereso cataracts)
Social History
Tobacco: Former smoker
Alcohol: Occasional
Personal:
Living: [facility]
Review of Systems
<Scarlett Mendes PA-C - Last Filed: 09/04/24 21:45>
Review of Systems
Allergies reviewed?: Yes
All Other Systems: ROS reviewed and negative except as documented in HPI and ROS
Phy Exam
<Scarlett Mendes PA-C - Last Filed: 09/04/24 21:45>
Physical Exam
Physical Exam:
GENERAL: No acute distress
HEENT: atraumatic, extraocular muscles intact, no signs of entrapment, dentition intact, no other obvious trauma
NECK: no midline tenderness, normal range of motion, no other obvious trauma
BACK: no midline tenderness, no other obvious trauma
CHEST: no tenderness, no flail segment, no subcutaneous emphysema, no other obvious trauma
LUNGS: clear to auscultation bilaterally
CARDIOVASCULAR: regular rate and rhythm
ABDOMEN: soft, non-tender, no masses, no other obvious trauma
PELVIS: stable, no obvious injury
EXTREMITIES: moving all extremities, no tenderness with internal/external rotation of bilateral hips, distal pulses intact, no other obvious trauma
NEUROLOGIC: awake, alert x [address], not time, no focal deficits, sensation intact
Course
<Scarlett Mendes PA-C - Last Filed: 09/04/24 21:45>
Orders/Labs/Results
Orders:
Orders
09/04/24 16:41
Electrocardiogram (*1) Urgent
Reason for Study: Fatigue / Weakness
EKG- Treatment ONCE
09/04/24 16:44
CPK [Creatine Phosphokinase] Urgent
Complete Blood Count/With Diff Urgent
Comprehensive Metabolic Panel Urgent
09/04/24 16:47
Electrocardiogram (*1) Urgent
Reason for Study: Other
Other Reason for Exam: fall
09/04/24 16:49
CT Head W/o Iv Contrast Urgent
Comment:
Reason For Exam: unwitnessed fall on plavix
Cervical Spine wo Contrast CT [CT Cervical Spine W/o Iv Contr] Urgent
Comment:
Reason For Exam: unwitnessed fall
09/04/24 17:04
0.9% Sodium Chloride 500 ml [Nss] 500 ml IV BOLUS
CR Chest - 2 Views Urgent
Comment:
Reason For Exam: unwitnessed fall
09/04/24 17:23
Urinalysis Reflex To Culture Urgent
Date Specimen was Collected: 09/04/24
Time Specimen was Collected: 17:21
Urine Microscopic Reflex Cult Urgent
Urine Culture Urgent
PAR[place] Source: U
Specimen Description:
Date Specimen was Collected: 09/04/24
Time Specimen was Collected: 17:21
09/04/24 18:42
Fosfomycin [Monurol] 3 gm PO ONCE ONE
Abnormal Lab Results
09/04/24 09/04/24
16:44 17:23
RBC 4.09 L 10^6/uL
(4.20-5.40)
MCHC 32.1 L g/dL
(33.0-37.0)
MPV 11.8 H fL
(7.4-10.4)
Abs Immat Gran (auto) 0.1 H 10^3/uL
(0-0.05)
Absolute Monos (auto) 0.7 H 10^3/uL
(0.1-0.6)
Immature Gran % 0.6 H %
(0-0.5)
Lymphocytes % 18.5 L %
(20.5-51.1)
BUN 29 H mg/dl
(7-17)
Glucose 219 H mg/dl
(70-99)
Leukocyte Esterase Rfl 2+ A
(Negative)
Urine WBC (Reflex) 70-80 A /HPF
(0-5)
Urine Yeast Many A
(Negative)
Urine Glucose 3+ A
(Negative)
09/04/24 16:44
09/04/24 16:44
Vital Signs
Initial and Last Documented VS:
Initial Vital Signs
BP
103/54
09/04/24 16:32
Last Documented Vital Signs
Temp Pulse Resp BP Pulse Ox
97.7 F 91 14 149/76 99
09/04/24 16:34 09/04/24 21:15 09/04/24 21:15 09/04/24 21:04 09/04/24 21:15
<Otis Parker MD - Last Filed: 09/04/24 17:06>
Orders/Labs/Results
Orders:
Orders
09/04/24 16:41
Electrocardiogram (*1) Urgent
Reason for Study: Fatigue / Weakness
EKG- Treatment ONCE
09/04/24 16:44
CPK [Creatine Phosphokinase] Urgent
Complete Blood Count/With Diff Urgent
Comprehensive Metabolic Panel Urgent
09/04/24 16:47
Electrocardiogram (*1) Urgent
Reason for Study: Other
Other Reason for Exam: fall
09/04/24 16:49
CT Head W/o Iv Contrast Urgent
Comment:
Reason For Exam: unwitnessed fall on plavix
Cervical Spine wo Contrast CT [CT Cervical Spine W/o Iv Contr] Urgent
Comment:
Reason For Exam: unwitnessed fall
09/04/24 17:04
0.9% Sodium Chloride 500 ml [Nss] 500 ml IV BOLUS
CR Chest - 2 Views Urgent
Comment:
Reason For Exam: unwitnessed fall
09/04/24 17:23
Urinalysis Reflex To Culture Urgent
Date Specimen was Collected: 09/04/24
Time Specimen was Collected: 17:21
Urine Microscopic Reflex Cult Urgent
Urine Culture Urgent
PARISH Source: U
Specimen Description:
Date Specimen was Collected: 09/04/24
Time Specimen was Collected: 17:21
09/04/24 18:42
Fosfomycin [Monurol] 3 gm PO ONCE ONE
Abnormal Lab Results
09/04/24 09/04/24
16:44 17:23
RBC 4.09 L 10^6/uL
(4.20-5.40)
MCHC 32.1 L g/dL
(33.0-37.0)
MPV 11.8 H fL
(7.4-10.4)
Abs Immat Gran (auto) 0.1 H 10^3/uL
(0-0.05)
Absolute Monos (auto) 0.7 H 10^3/uL
(0.1-0.6)
Immature Gran % 0.6 H %
(0-0.5)
Lymphocytes % 18.5 L %
(20.5-51.1)
BUN 29 H mg/dl
(7-17)
Glucose 219 H mg/dl
(70-99)
Leukocyte Esterase Rfl 2+ A
(Negative)
Urine WBC (Reflex) 70-80 A /HPF
(0-5)
Urine Yeast Many A
(Negative)
Urine Glucose 3+ A
(Negative)
09/04/24 16:44
09/04/24 16:44
Vital Signs
Initial and Last Documented VS:
Initial Vital Signs
BP
103/54
09/04/24 16:32
Last Documented Vital Signs
Temp Pulse Resp BP Pulse Ox
97.7 F 91 14 149/76 99
09/04/24 16:34 09/04/24 21:15 09/04/24 21:15 09/04/24 21:04 09/04/24 21:15
<Scarlett Mendes PA-C - Last Filed: 09/04/24 21:45>
MDM/Problems Addressed
Differential Diagnosis Includes:
Not limited to: Concussion, intracerebral hemorrhage, syncope, hypoglycemia, cardiac arrhythmia, UTI, pneumothorax, etc.
MDM/Problems Addressed:
83-year-old female with history as documented presenting following unwitnessed fall at nursing facility. Patient unable to provide history. patient arrives with mildly soft BP although appears around her baseline. Otherwise her vital signs are
stable. On exam�patient is in no apparent distress. She is alert and oriented x 2�which is her baseline. No evidence of head or neck trauma. No chest wall tenderness or shortness of breath. Abdomen is soft and nontender. No evidence of
extremity injuries bilaterally. Given unknown circumstances surrounding fall�will check labs, CK, urinalysis. Will check chest x-ray, head CT, C-spine CT. Closely monitor and reassess.
Update: EKG shows normal sinus rhythm without any signs of ischemia or arrhythmia. Labs reviewed. No clinically significant abnormalities. Urine does appear infected. Patient is at her baseline and well-appearing�will give dose of fosfomycin in
emergency department to treat. Imaging studies pending.
Update: Head CT, C-spine CT, chest x-ray without acute abnormalities. Patient has remained stable in emergency department at her baseline. No evidence of injury sustained in fall. Blood pressures normalized after small bolus of IV fluids.
Patient is ambulated in emergency department without. Patient did receive fosfomycin. Patient eager for discharge home to facility. Feel patient is stable for discharge back to facility with close return precautions. Did call and discuss
UTI/fosfomycin and findings with nurse at [facility].
Chronic conditions affecting care:
Dementia, frequent UTIs
Acute Exacerbation and/or Progression of Chronic Illness:
Acute UTI
<Scarlett Mendes PA-C - Last Filed: 09/04/24 21:45>
*Radiology
Radiology exam reviewed: preliminary read by ED provider and radiology read reviewed
*Pulse Oximetry
Patient hypoxic: no
*EKG
Interpreted by ED Provider?: Yes
EKG Intrepretation Date: 09/04/24
Interpretation: normal
Comparison EKG: no changes
Heart Rate: 87
Rate: normal
Rhythm: sinus
[place]: normal axis
Interval: normal interval
QRS Pattern: normal QRS
Ischemia: no ischemia
*[place] Interpretation
Rate: normal
Interpretation: normal
Heart Rate: 84
Rhythm: sinus
*Critical Care Note
Total Time (30-74mins, 75-104mins- exclusive of procedures): Not Applicable
ED Attending Note
<Scarlett Mendes PA-C - Last Filed: 09/04/24 21:45>
-
Portions of this chart may have been created with voice recognition software.� Occasional wrong word or��sound alike� substitutions may have occurred due to the inherent limitations of voice recognition software.
<Otis Parker MD - Last Filed: 09/04/24 17:06>
ED Attending Note
Patient seen and examined by attending physician: Yes
I performed the substantive portion of visit, reviewed & personally made and approve the management plan that is documented in note by myself or RAMOS.: Yes
ED Attending Note:
I have seen and evaluated the patient with a [id number] encounter. I have spoken to the [SELENA] and involved in the medical history, the physical exam, medical decision making.
Evaluation and management service: agree unless noted differently below.
Results interpretation: agree unless noted differently below.
83-year-old woman with history of dementia, diabetes, UTIs presenting to the emergency department after unwitnessed fall. Per medics patient was found on the floor. Unknown how long she was down for. Patient has dementia and cannot offer any
additional details. During my evaluation patient is resting comfortably. She has no signs of trauma to her head or neck. Her lungs are clear. Her abdomen is soft nontender. No tenderness to palpation in all extremities. Will obtain blood work
including CK, EKG and urine. Will obtain CT imaging given the fall. Anticipate discharge if everything is unremarkable.
Discharge Plan
Departure
Patient Disposition: Home (Routine Discharge)
Date of Disposition: 09/04/24
Time of Disposition: 19:35
Patient with high blood pressure during this ER visit?: No
Covid-19: Not Applicable
Discharge Problem:
Unwitnessed fall, Acute UTI
Instructions: Urinary tract infections in adults, Preventing falls in adults
Prescriptions:
No Action
aspirin 325 MG tablet
325 mg PO DAILY
glyburide 1.25 MG tablet
1.25 mg PO DAILY
ropinirole 1 mg Tablet
1 mg PO BID
cyanocobalamin (vitamin B-12) [Vitamin B-12] 1,000 mcg Tablet
1,000 mcg PO DAILY
clopidogrel [Plavix] 75 mg Tablet
75 mg PO DAILY
omeprazole 40 mg Capsule,Delayed Release(Dr/Ec)
40 mg PO QPM
levothyroxine 75 mcg Tablet
75 mcg PO DAILY
lisinopril 30 mg Tablet
30 mg PO DAILY
carbidopa-levodopa 25-100 mg Tablet
2 tab PO TID
fluticasone propionate 50 mcg/actuation [place],Suspension
1 spray INTRANASAL DAILY
ybdjhbfwnqm-tiyuuurie-dob C-Mn [Glucosamine 1500 Complex] 500-400 mg Capsule
1 cap PO QPM
Systane (propylene glycol) 0.4-0.3 % Drops
1 drp BOTH EYES BID
rosuvastatin 20 mg Tablet
20 mg PO HS
memantine 5 mg Tablet
5 mg PO BID
cholecalciferol (vitamin D3) [Vitamin D3] 50 mcg (2,000 unit) Capsule
50 mcg PO DAILY
PreserVision AREDS-2
1 cap PO BID
Referrals:
Reece Perkins CRNP [Family Provider] - Follow up in 2-3 days
Activity Restrictions/Additional Instructions:
RETURN TO THE EMERGENCY DEPARTMENT WITH ANY SEVERE HEADACHE/NECK PAIN, SEVERE ABDOMINAL PAIN, FAINTING EPISODES, CHANGES IN MENTAL STATUS, WORSENING IN CURRENT SYMPTOMS, OR ANY OTHER CONCERNS
-As discussed that your urine showed signs of infection today. You were given a dose of fosfomycin while in the emergency department.
-Your head CT and neck CT showed no evidence of acute injury.
-You should follow your primary care doctor for further evaluation/management to ensure that symptoms are improving
Monitor your symptoms closely return to the emergency department with any acute worsening/new symptoms or any signs of worsening infection
Interventions
Interventions:
*Risk Screen - Suicide Last Done: 09/04/24 16:50
*General Assessment Last Done: 09/04/24 16:50
*Neglect/Abuse Screening Last Done: 09/04/24 16:50
ED- Fall Risk Assessment Last Done: 09/04/24 21:32
*ED COVID-19 Vaccine History Last Done: 09/04/24 16:50
*Nursing Disposition Last Done: 09/04/24 21:32
ED-Musculoskeletal Assessment Last Done: 09/04/24 16:51
ED- Neurological Assessment Last Done: 09/04/24 16:51
ED-Skin Assessment Last Done: 09/04/24 16:51
Discharge Date and Time
Discharge Date/Time: 09/04/24 21:33
Print Language: FRENCH
[2024-09-04 16:58] LABS: % Basophils 0.6 % (0-2); % Eosinophils 1.9 % (0-6); % Immature Granulocytes 0.6 % (0-0.5); % Lymphocytes 18.5 % (20.5-51.1); % Monocytes 7.6 % (1.7-9.3); % Neutrophils 70.8 % (42.2-75.2); Absolute Basophils 0.1 10^3/uL (0-0.2); Absolute Eosinophils 0.2 10^3/uL (0-0.7); Absolute Immature Granulocytes 0.1 10^3/uL (0-0.05); Absolute Lymphocytes 1.6 10^3/uL (1.2-3.4); Absolute Monocytes 0.7 10^3/uL (0.1-0.6); Absolute Neutrophils 6.3 10^3/uL (1.4-6.5); Hematocrit 39.2 % (37.0-47.0); Hemoglobin 12.6 g/dL (12.0-16.0); Mean Corp Hgb Conc. 32.1 g/dL (33.0-37.0); Mean Corpuscular Hgb 30.8 pg (27.0-31.0); Mean Corpuscular Volume 95.8 fL (81.0-99.0); Mean Platelet Volume 11.8 fL (7.4-10.4); Nucleated Red Blood Cells % 0 %; Platelet Count 215 10^3/uL (130-400); Red Blood Cell Count 4.09 10^6/uL (4.20-5.40); Red Cell Dist. Width 13.9 % (11.5-14.5); White Blood Cell Count 8.9 10^3/uL (4.8-10.8)
[2024-09-04 17:13] LABS: ALT (SGPT) < 10 U/L (0-35); AST (SGOT) 18 U/L (14-36); Albumin 4.1 g/dl (3.5-5.0); Alkaline Phosphatase 120 U/L (38-126); Blood Urea Nitrogen 29 mg/dl (7-17); Calcium 9.2 mg/dl (8.4-10.2); Carbon Dioxide 23 mmol/L (22-30); Chloride 106 mmol/L (98-107); Creatine Phosphokinase 33 U/L (30-135); Estimated Creatinine Clearance 65 ml/min; Glucose 219 mg/dl (70-99); Potassium 4.9 mmol/L (3.5-5.1); Sodium 142 mmol/L (135-145); Total Bilirubin 0.8 mg/dl (0.2-1.3); Total Protein 6.6 g/dl (6.3-8.2); eGFR > 60.00
[2024-09-04] MEDS: NSS 500 IV (17:22)
[2024-09-04 17:39] LABS: Urine Albumin Negative (Neg - Trace); Urine Bilirubin Negative (Negative); Urine Character Clear (Clear); Urine Color Yellow; Urine Glucose 3+ (Negative); Urine Ketone Negative (Negative); Urine Leukocyte 2+ (Negative); Urine Nitrite Negative (Negative); Urine Occult Blood Negative (Negative); Urine Urobilinogen Negative (Neg - 1+)
[2024-09-04 17:51] LABS: Urine Red Blood Cell 0-2 /HPF (0-2); Urine Squamous Cell 0-2 /LPF (Few); Urine White Cell 70-80 /HPF (0-5); Urine Yeast Many (Negative)
[2024-09-04] MEDS: MONUROL 3 GM PO (19:13)
== END 2024-09-04 21:33 | disposition home or self-care (01) ==
LOC: EMR 16:25
PROVIDERS: EMERGENCY PHYSICIAN Student in an Organized Health Care Education/Training Program; FAMILY PHYSICIAN Registered Nurse
DX: N39.0 Urinary tract infection, site not specified (principal); R53.1 Weakness; W19.XXXA Unspecified fall, initial encounter; F02.80 Dementia in other diseases classified elsewhere, unspecified severity, without behavioral disturbance, psychotic disturbance, mood disturbance, and anxiety; G20.A1 Parkinson's disease without dyskinesia, without mention of fluctuations; I10 Essential (primary) hypertension; E78.00 Pure hypercholesterolemia, unspecified; E03.9 Hypothyroidism, unspecified; E11.36 Type 2 diabetes mellitus with diabetic cataract; Z87.440 Personal history of urinary (tract) infections; Z86.73 Personal history of transient ischemic attack (TIA), and cerebral infarction without residual deficits; Z87.891 Personal history of nicotine dependence; Z79.02 Long term (current) use of antithrombotics/antiplatelets; Z79.82 Long term (current) use of aspirin; Z91.048 Other nonmedicinal substance allergy status
CPT/HCPCS: 99285; 96360; 70450; 71046; 72125; 80053; 81003; 81015; 82550; 85025; 87086; 93005

== ENCOUNTER 2024-09-19 14:19 | Emergency (ER) | payer MEDICARE, OTHER, SELFPAY ==
[2024-09-19 14:24] VITALS: BP 98/67
[2024-09-19 14:27] VITALS: BP 98/67
--- NOTE | 2024-09-19 14:29 | ED.MUSCINJ ---
HPI-Injury
General
Chief Complaint: Fall
Source: patient
Exam Limitations: none
Time Seen by Provider: 09/19/24 14:20
History of Present Illness-Injury
Initial Injury comments:
83-year-old female presents from [facility] with history of Parkinson's and dementia with complaints of left knee pain after a fall. She was walking without her walker lost her balance and fell on her left knee. No visualized head strike
per the staff. She is on Plavix. She denies headache neck chest pain abdominal pain or shortness of breath. She notes only left knee pain. No other complaints at this time
Past History
Past History
ED Past Medical History: CVA, HTN, Hypercholesterolemia, NIDDM, Hypothyroidism and Other (Parkinson's disease, Headache, Amnesia, UTI)
ED Past Surgical History: Gynecological (Tereso ovaries removed, Left and right Lumpectomy) and Other (Abd surgery with endometriosis, Tereso cataracts)
Social History
Tobacco: Former smoker
Alcohol: Occasional
Personal:
Living: [facility]
Phy Exam
Physical Exam
Physical Exam:
General: Well-appearing female no acute respiratory distress
HEENT: Normocephalic no scalp abrasion or hematoma
Heart: Regular rate and rhythm no murmurs
Lungs: Clear no wheeze
Musculoskeletal exam: Left knee tender anteriorly with overlying abrasion. No deformity. Range of motion is limited secondary to pain. The spine is nontender.
Neurologic exam: Alert and oriented to person only. No facial asymmetry abdomen is soft nontender nondistended no guarding or rebound
Injury Course
Orders/Labs/Results
Orders:
Orders
09/19/24 14:29
CR Knee - Left 4 Or More View* Urgent
Comment:
Reason For Exam: fall, pain
09/19/24 14:46
Complete Blood Count/With Diff Urgent
Comprehensive Metabolic Panel Urgent
Abnormal Lab Results
09/19/24
14:46
RBC 4.01 L 10^6/uL
(4.20-5.40)
MCH 31.4 H pg
(27.0-31.0)
MPV 11.8 H fL
(7.4-10.4)
Abs Immat Gran (auto) 0.1 H 10^3/uL
(0-0.05)
Immature Gran % 0.6 H %
(0-0.5)
Carbon Dioxide 19 L mmol/L
(22-30)
BUN 20 H mg/dl
(7-17)
Glucose 238 H mg/dl
(70-99)
09/19/24 14:46
09/19/24 14:46
MDM/Problems Addressed
Differential Diagnosis Includes:
Left knee pain after fall. Typically uses walker but was not using it today. Consider contusion versus fracture versus dislocation. X-rays left knee pending. Reported low blood pressures by EMS. Fluids ordered
*Critical Care Note
Total Time (30-74mins, 75-104mins- exclusive of procedures): Not Applicable
Update Note
Update Note:
X-ray left knee negative for acute finding. Patient reassured. Blood pressure improved. Labs reviewed without significant finding. No indication for admission. Stable for discharge back to facility
ED Attending Note
-
Portions of this chart may have been created with voice recognition software.� Occasional wrong word or��sound alike� substitutions may have occurred due to the inherent limitations of voice recognition software.
Discharge Plan
Departure
Patient Disposition: Home (Routine Discharge)
Date of Disposition: 09/19/24
Time of Disposition: 16:34
Patient with high blood pressure during this ER visit?: No
Discharge Problem:
Contusion
Instructions: Contusion (DC)
Prescriptions:
No Action
aspirin 325 MG tablet
325 mg PO DAILYPRN PRN (Reason: mild pain)
ropinirole 1 mg Tablet
1 mg PO BID
cyanocobalamin (vitamin B-12) [Vitamin B-12] 1,000 mcg Tablet
1,000 mcg PO DAILY
clopidogrel [Plavix] 75 mg Tablet
75 mg PO DAILY
omeprazole 40 mg Capsule,Delayed Release(Dr/Ec)
40 mg PO QPM
levothyroxine 75 mcg Tablet
75 mcg PO DAILY
lisinopril 30 mg Tablet
30 mg PO DAILY
carbidopa-levodopa 25-100 mg Tablet
2 tab PO TID
fluticasone propionate 50 mcg/actuation [place],Suspension
1 spray INTRANASAL DAILY
cholecalciferol (vitamin D3) [Vitamin D3] 50 mcg (2,000 unit) Capsule
50 mcg PO DAILY
metformin 500 mg Tablet
500 mg PO BID
furosemide 20 mg Tablet
20 mg PO DAILY
Systane Ultra 0.4-0.3 % Drops
1 drp BOTH EYES BID
insulin glargine [Lantus Solostar U-100 Insulin] 100 unit/mL (3 mL) Insulin Pen
15 unit SC HS
glucosamine HCl 1,500 mg Tablet
1,500 mg PO QPM
PreserVision AREDS-2 250-90-40-1 mg Capsule
1 tab PO BID
dapagliflozin propanediol [Farxiga] 10 mg Tablet
10 mg PO DAILY
Azo Bladder Control 300 mg Capsule
1 cap PO BID
Referrals:
UNKNOWN - PT DOES,NOT KNOW [Family Provider] -
Activity Restrictions/Additional Instructions:
Patient presented with pain to the left knee after a fall. X-rays were taken. These were negative for any fracture. There is an abrasion on her knee. She may use Tylenol if needed for pain.
Interventions
Interventions:
*Risk Screen - Suicide Last Done: 09/19/24 14:24
*General Assessment Last Done: 09/19/24 14:24
*Neglect/Abuse Screening Last Done: 09/19/24 14:24
*ED COVID-19 Vaccine History Last Done: 09/19/24 14:24
ED-Musculoskeletal Assessment Last Done: 09/19/24 14:34
ED- Neurological Assessment Last Done: 09/19/24 14:34
ED-Skin Assessment Last Done: 09/19/24 14:34
Discharge Date and Time
Print Language: IVORIAN
[2024-09-19 15:00] VITALS: BP 113/57
[2024-09-19 15:11] LABS: % Basophils 0.8 % (0-2); % Eosinophils 1.6 % (0-6); % Immature Granulocytes 0.6 % (0-0.5); % Lymphocytes 20.6 % (20.5-51.1); % Neutrophils 69.4 % (42.2-75.2); Absolute Basophils 0.1 10^3/uL (0-0.2); Absolute Eosinophils 0.1 10^3/uL (0-0.7); Absolute Immature Granulocytes 0.1 10^3/uL (0-0.05); Absolute Lymphocytes 1.7 10^3/uL (1.2-3.4); Absolute Monocytes 0.6 10^3/uL (0.1-0.6); Absolute Neutrophils 5.8 10^3/uL (1.4-6.5); Hemoglobin 12.6 g/dL (12.0-16.0); Mean Corp Hgb Conc. 33.2 g/dL (33.0-37.0); Mean Corpuscular Hgb 31.4 pg (27.0-31.0); Mean Corpuscular Volume 94.8 fL (81.0-99.0); Nucleated Red Blood Cells % 0 %; Red Blood Cell Count 4.01 10^6/uL (4.20-5.40); Red Cell Dist. Width 13.8 % (11.5-14.5); White Blood Cell Count 8.3 10^3/uL (4.8-10.8)
[2024-09-19 15:20] LABS: ALT (SGPT) 10 U/L (0-35); AST (SGOT) 17 U/L (14-36); Albumin 4.4 g/dl (3.5-5.0); Alkaline Phosphatase 117 U/L (38-126); Blood Urea Nitrogen 20 mg/dl (7-17); Calcium 9.2 mg/dl (8.4-10.2); Carbon Dioxide 19 mmol/L (22-30); Chloride 106 mmol/L (98-107); Glucose 238 mg/dl (70-99); Potassium 4.9 mmol/L (3.5-5.1); Sodium 140 mmol/L (135-145); Total Bilirubin 0.9 mg/dl (0.2-1.3); Total Protein 7.1 g/dl (6.3-8.2); eGFR > 60.00
[2024-09-19 15:27] LABS: Mean Platelet Volume 11.8 fL (7.4-10.4); Platelet Count 197 10^3/uL (130-400)
[2024-09-19 16:00] VITALS: BP 108/54
== END 2024-09-19 18:48 | disposition home or self-care (01) ==
LOC: EMR 14:19
PROVIDERS: Physician Assistant; EMERGENCY PHYSICIAN Emergency Medicine
DX: S80.02XA Contusion of left knee, initial encounter (principal); S80.212A Abrasion, left knee, initial encounter; W18.39XA Other fall on same level, initial encounter; F02.80 Dementia in other diseases classified elsewhere, unspecified severity, without behavioral disturbance, psychotic disturbance, mood disturbance, and anxiety; G20.A1 Parkinson's disease without dyskinesia, without mention of fluctuations; I10 Essential (primary) hypertension; E78.00 Pure hypercholesterolemia, unspecified; E11.9 Type 2 diabetes mellitus without complications; E03.9 Hypothyroidism, unspecified; Z86.73 Personal history of transient ischemic attack (TIA), and cerebral infarction without residual deficits; Z87.891 Personal history of nicotine dependence; Z79.02 Long term (current) use of antithrombotics/antiplatelets
CPT/HCPCS: 99284; 73564; 80053; 85025

== ENCOUNTER → 2024-10-13 09:54 | Outpatient (REF) | payer MEDICARE, OTHER, SELFPAY ==
[2024-10-13 12:09] LABS: Microalbumin, Random Urine 2.1 mg/dl (0.6-1.7); Microalbumin/creatinine Ratio 33.2 mg/g
[2024-10-13 13:02] LABS: % Basophils 0.8 % (0-2); % Eosinophils 2.9 % (0-6); % Immature Granulocytes 0.5 % (0-0.5); % Lymphocytes 20.1 % (20.5-51.1); % Monocytes 8.2 % (1.7-9.3); % Neutrophils 67.5 % (42.2-75.2); ALT (SGPT) 10 U/L (0-35); AST (SGOT) 12 U/L (14-36); Absolute Basophils 0.1 10^3/uL (0-0.2); Absolute Eosinophils 0.2 10^3/uL (0-0.7); Absolute Lymphocytes 1.5 10^3/uL (1.2-3.4); Absolute Monocytes 0.6 10^3/uL (0.1-0.6); Absolute Neutrophils 5.2 10^3/uL (1.4-6.5); Albumin 3.3 g/dl (3.5-5.0); Alkaline Phosphatase 124 U/L (38-126); Blood Urea Nitrogen 22 mg/dl (7-17); Calcium 9.1 mg/dl (8.4-10.2); Carbon Dioxide 28 mmol/L (22-30); Chloride 106 mmol/L (98-107); GGTP 13 U/L (12-43); Glucose 164 mg/dl (70-99); HDL Cholesterol 58 mg/dl; Hematocrit 34.9 % (37.0-47.0); Hemoglobin 11.4 g/dL (12.0-16.0); LDL Cholesterol, Calculated 136 mg/dl; Mean Corp Hgb Conc. 32.7 g/dL (33.0-37.0); Mean Corpuscular Hgb 31.6 pg (27.0-31.0); Mean Corpuscular Volume 96.7 fL (81.0-99.0); Mean Platelet Volume 12.3 fL (7.4-10.4); Nucleated Red Blood Cells % 0 %; Platelet Count 203 10^3/uL (130-400); Potassium 4.3 mmol/L (3.5-5.1); Red Blood Cell Count 3.61 10^6/uL (4.20-5.40); Sodium 140 mmol/L (135-145); Total Bilirubin 0.6 mg/dl (0.2-1.3); Total Cholesterol 212 mg/dl (50-199); Total Protein 5.7 g/dl (6.3-8.2); Triglyceride 94 mg/dl (10-149); Very Low Density Lipoprotein 18 mg/dl (0-30); White Blood Cell Count 7.7 10^3/uL (4.8-10.8); eGFR > 60.00
[2024-10-13 13:35] LABS: TSH Reflex To Free T4 1.29 uIU/ml (0.47-4.68)
[2024-10-13 13:54] LABS: Vitamin B12 745 pg/ml (239-931)
[2024-10-13 14:18] LABS: Glycohemoglobin (HgbA1c) 8.5 % (4.0-5.6)
== END ==
LOC: OLABLV 09:54
PROVIDERS: ATTENDING PHYSICIAN Registered Nurse
DX: I51.89 Other ill-defined heart diseases (principal); E53.8 Deficiency of other specified B group vitamins; E11.9 Type 2 diabetes mellitus without complications; E03.9 Hypothyroidism, unspecified; R74.8 Abnormal levels of other serum enzymes
CPT/HCPCS: 36415; 80053; 80061; 82043; 82570; 82607; 82977; 83036; 84443; 85025

== ENCOUNTER 2024-10-23 10:22 | Emergency (ER) | payer MEDICARE, OTHER, SELFPAY ==
[2024-10-23 10:30] VITALS: BP 111/60
[2024-10-23 11:17] VITALS: BMI 23.5
--- NOTE | 2024-10-23 12:31 | ED.GENMED ---
History of Present Illness
General
Chief Complaint: Fall
Source: patient
Exam Limitations: none
Time Seen by Provider: 10/23/24 11:03
Nursing documentation reviewed up to this point in time: agreed with
History of Present Illness
History of Present Illness:
83-year-old female sent by [facility] for evaluation of unwitnessed fall. Pt c/o of left knee pain . No head injuries on exam. Fall was unwitnessed fall. Pt is on Plavix . Pt denies headache, denies neck/back pain.
Past History
Past History
ED Past Medical History: CVA, HTN, Hypercholesterolemia, NIDDM, Hypothyroidism and Other (Parkinson's disease, Headache, Amnesia, UTI)
ED Past Surgical History: Gynecological (Tereso ovaries removed, Left and right Lumpectomy) and Other (Abd surgery with endometriosis, Tereso cataracts)
Social History
Tobacco: Former smoker
Alcohol: Occasional
Personal:
Living: long-term
Review of Systems
Review of Systems
Allergies reviewed?: Yes
All Other Systems: ROS reviewed and negative except as documented in HPI and ROS
Constitutional: Reports no symptoms
Respiratory: Reports no symptoms
Cardiac: Reports no symptoms
: Reports no symptoms
Musculoskeletal: Reports other (left knee pain )
Skin: Reports no symptoms
Neurological: Denies headache
Psychiatric: Reports no symptoms
Phy Exam
General Physical Exam
General Presentation: no apparent distress
General age: appears stated age
General Skin: warm and dry
General Habitus: normal
General Mental: alert
General Hydration: appears well hydrated
Course
Orders/Labs/Results
Orders:
Orders
10/23/24 11:17
Knee, Left 4 or More Views [CR Knee - Left 4 Or More View*] Urgent
Comment:
Reason For Exam: fall, left knee pain
10/23/24 11:[address]
CT Cervical Spine W/o Iv Contr Urgent
Comment:
Reason For Exam: trauma
CT Head W/o Iv Contrast Urgent
Comment:
Reason For Exam: trauma
Vital Signs
Initial and Last Documented VS:
Initial Vital Signs
Temp Pulse Resp BP Pulse Ox
97.6 F 75 16 111/60 99
10/23/24 10:30 10/23/24 10:30 10/23/24 10:30 10/23/24 10:30 10/23/24 10:30
Last Documented Vital Signs
Temp Pulse Resp BP Pulse Ox
97.6 F 75 16 111/60 99
10/23/24 10:30 10/23/24 10:30 10/23/24 10:30 10/23/24 10:30 10/23/24 10:30
MDM/Problems Addressed
Differential Diagnosis Includes:
Not limited to: knee contusion versus fx; possible head injury
MDM/Problems Addressed:
Patient presented with complaint of left knee pain after trip and fall using her walker. This fall was unwitnessed. When asked she does complain of mild left knee pain she denies hitting her head and denies headache however since unwitnessed and
with age will CT head and C-spine. Will check knee x-ray and plan to discharge home if x-rays are negative.
*Critical Care Note
Total Time (30-74mins, 75-104mins- exclusive of procedures): Not Applicable
ED Attending Note
-
Portions of this chart may have been created with voice recognition software.� Occasional wrong word or��sound alike� substitutions may have occurred due to the inherent limitations of voice recognition software.
Discharge Plan
Departure
Patient Disposition: Jail/SNF
Date of Disposition: 10/23/24
Time of Disposition: 15:03
Patient with high blood pressure during this ER visit?: No
Condition: Fair
Covid-19: Not Applicable
Discharge Problem:
Contusion of knee
Instructions: Contusion (DC)
Prescriptions:
No Action
aspirin 325 MG tablet
325 mg PO DAILYPRN PRN (Reason: mild pain)
ropinirole 1 mg Tablet
1 mg PO BID
cyanocobalamin (vitamin B-12) [Vitamin B-12] 1,000 mcg Tablet
1,000 mcg PO DAILY
clopidogrel [Plavix] 75 mg Tablet
75 mg PO DAILY
omeprazole 40 mg Capsule,Delayed Release(Dr/Ec)
40 mg PO QPM
levothyroxine 75 mcg Tablet
75 mcg PO DAILY
lisinopril 30 mg Tablet
30 mg PO DAILY
carbidopa-levodopa 25-100 mg Tablet
2 tab PO TID
fluticasone propionate 50 mcg/actuation [place],Suspension
1 spray INTRANASAL DAILY
cholecalciferol (vitamin D3) [Vitamin D3] 50 mcg (2,000 unit) Capsule
50 mcg PO DAILY
metformin 500 mg Tablet
500 mg PO BID
furosemide 20 mg Tablet
20 mg PO DAILY
Systane Ultra 0.4-0.3 % Drops
1 drp BOTH EYES BID
insulin glargine [Lantus Solostar U-100 Insulin] 100 unit/mL (3 mL) Insulin Pen
15 unit SC HS
glucosamine HCl 1,500 mg Tablet
1,500 mg PO QPM
PreserVision AREDS-2 250-90-40-1 mg Capsule
1 tab PO BID
dapagliflozin propanediol [Farxiga] 10 mg Tablet
10 mg PO DAILY
Azo Bladder Control 300 mg Capsule
1 cap PO BID
Referrals:
Reece Perkins CRNP [Family Provider] -
Juan Porter MD [Active] -
Activity Restrictions/Additional Instructions:
X-rays of the knee were done and negative for fracture patient also had a CAT scan of the head and cervical spine which were negative. Patient is to follow-up with family doctor in next several days and orthopedics as needed.
tylenol as needed and ice affected area for the next 24 hours for 20 minutes at a time several times day
Interventions
Interventions:
*Risk Screen - Suicide Last Done: 10/23/24 11:17
*General Assessment Last Done: 10/23/24 11:17
*Neglect/Abuse Screening Last Done: 10/23/24 11:17
ED-Musculoskeletal Assessment Last Done: 10/23/24 11:17
ED- Neurological Assessment Last Done: 10/23/24 11:17
ED-Skin Assessment Last Done: 10/23/24 11:17
Discharge Date and Time
Print Language: GREENLAND[place]
[2024-10-23 17:15] VITALS: BP 151/81
== END 2024-10-23 17:29 ==
LOC: EMR 10:22
PROVIDERS: EMERGENCY PHYSICIAN Student in an Organized Health Care Education/Training Program; FAMILY PHYSICIAN Registered Nurse
DX: S80.02XA Contusion of left knee, initial encounter (principal); W01.0XXA Fall on same level from slipping, tripping and stumbling without subsequent striking against object, initial encounter; I10 Essential (primary) hypertension; E11.9 Type 2 diabetes mellitus without complications; E03.9 Hypothyroidism, unspecified; E78.00 Pure hypercholesterolemia, unspecified; G20.A1 Parkinson's disease without dyskinesia, without mention of fluctuations; Z86.73 Personal history of transient ischemic attack (TIA), and cerebral infarction without residual deficits; Z79.02 Long term (current) use of antithrombotics/antiplatelets; Z87.891 Personal history of nicotine dependence
CPT/HCPCS: 99284; 70450; 72125; 73564

== ENCOUNTER 2024-11-08 19:15 | Emergency (ER) | payer MEDICARE, OTHER, SELFPAY ==
[2024-11-08 19:15] VITALS: BMI 25.5
[2024-11-08 19:16] VITALS: BP 129/60
[2024-11-08 20:00] VITALS: BP 137/61
--- NOTE | 2024-11-08 20:09 | ED.GENMED ---
History of Present Illness
General
Chief Complaint: Fall
Source: patient
Exam Limitations: none
Time Seen by Provider: 11/08/24 19:25
Nursing documentation reviewed up to this point in time: agreed with
History of Present Illness
History of Present Illness:
Patient is an 83-year-old female with history dementia, hypertension, hyperlipidemia, diabetes presenting to the emergency department after unwitnessed fall at nursing facility. Patient unable to contribute much to history due to dementia. Did
call and speak with nurse at [facility] who states patient had an unwitnessed fall in the hallway with another resident. They do not believe the she hit her head although they are not sure. They state patient was complaining of pain in her left knee
and appeared to have a small abrasion.
Patient denies any head strike. Patient denies any headache, neck pain, chest pain, shortness of breath, abdominal pain. She does however report pain in her left knee. No pain in her left hip or left ankle. No numbness or tingling in left lower
extremity.
Past History
Past History
ED Past Medical History: CVA, HTN, Hypercholesterolemia, NIDDM, Hypothyroidism and Other (Parkinson's disease, Headache, Amnesia, UTI)
ED Past Surgical History: Gynecological (Tereso ovaries removed, Left and right Lumpectomy) and Other (Abd surgery with endometriosis, Tereso cataracts)
Social History
Tobacco: Former smoker
Alcohol: Occasional
Personal:
Living: long-term
Review of Systems
Review of Systems
Allergies reviewed?: Yes
All Other Systems: ROS reviewed and negative except as documented in HPI and ROS
Phy Exam
Physical Exam
Physical Exam:
GENERAL: No acute distress
HEENT: atraumatic, extraocular muscles intact, no signs of entrapment, dentition intact, no other obvious trauma
NECK: no midline tenderness, normal range of motion, no other obvious trauma
BACK: no midline tenderness, no other obvious trauma
CHEST: no tenderness, no flail segment, no subcutaneous emphysema, no other obvious trauma
LUNGS: clear to auscultation bilaterally
CARDIOVASCULAR: regular rate and rhythm
ABDOMEN: soft, non-tender, no masses, no other obvious trauma
PELVIS: stable, no obvious injury
EXTREMITIES: Minor abrasion to left anterior knee just inferior to the patella. Mild tenderness to palpation of patella and proximal tibia. No laxity of left knee joint. No obvious deformity. Acceptable range of motion in left knee. No
tenderness in left hip with internal/external rotation. Palpable DP pulse of left lower extremity with normal capillary refill. RLE and bilateral upper extremities atraumatic and nontender with full range of motion.
NEUROLOGIC: awake, alert x [address], not time, no focal deficits
Course
Orders/Labs/Results
Orders:
Orders
11/08/24 20:01
Acetaminophen [Tylenol] 650 mg PO NOW STA
Tetanus/Diphth/Acelpertussis [Adacel] 0.5 ml IM .ONCE ONE
Knee, Left 4 or More Views [CR Knee - Left 4 Or More View*] Urgent
Comment:
Reason For Exam: trauma
11/08/24 21:05
CT Head W/o Iv Contrast Urgent
Comment:
Reason For Exam: unwitnessed fall
Cervical Spine wo Contrast CT [CT Cervical Spine W/o Iv Contr] Urgent
Comment:
Reason For Exam: unwtinessed fall
Vital Signs
Initial and Last Documented VS:
Initial Vital Signs
Temp Pulse Resp BP Pulse Ox
97.5 F 77 18 129/60 99
11/08/24 19:16 11/08/24 19:16 11/08/24 19:16 11/08/24 19:16 11/08/24 19:16
Last Documented Vital Signs
Temp Pulse Resp BP Pulse Ox
97.5 F 89 14 131/63 100
11/08/24 19:16 11/09/24 00:46 11/09/24 00:46 11/09/24 01:00 11/09/24 01:15
MDM/Problems Addressed
Differential Diagnosis Includes:
Not limited to: Patellar fracture, knee contusion, ligamentous injury, abrasion, etc.
MDM/Problems Addressed:
83-year-old female presenting after unwitnessed mechanical fall at nursing facility complaining of left knee pain. It was unknown if there was head strike or loss of consciousness. Vitals stable. Physical exam as above. Will check x-ray of left
knee. While there�s no evidence of head or neck trauma � given history of unwitnessed fall on Plavix � will obtain CT imaging of head and cervical spine. Will update tetanus.
Update: CT/cervical spine without acute abnormalities. X-ray of left knee without evidence of fracture. Discussed with patient. Wound was irrigated with normal saline. Nurses were able to stand patient up and she was walking independently. At this
point � feel stable for discharge back to facility. Close return precautions described on discharge paperwork and included copies of imaging studies.
Chronic conditions affecting care:
Dementia
Acute Exacerbation and/or Progression of Chronic Illness:
N/A
*Radiology
Radiology exam reviewed: preliminary read by ED provider (Knee x-ray reviewed by me-no acute fracture) and radiology read reviewed
*Pulse Oximetry
Patient hypoxic: no
*EKG
Interpreted by ED Provider?: NA
*Lace Paper Machine Operator Interpretation
Rate: Lace Paper Machine Operator- N/A
*Critical Care Note
Total Time (30-74mins, 75-104mins- exclusive of procedures): Not Applicable
ED Attending Note
-
Portions of this chart may have been created with voice recognition software.� Occasional wrong word or��sound alike� substitutions may have occurred due to the inherent limitations of voice recognition software.
Discharge Plan
Departure
Patient Disposition: Home (Routine Discharge)
Date of Disposition: 11/08/24
Time of Disposition: 22:46
Patient with high blood pressure during this ER visit?: Yes
Condition: Good
Covid-19: Not Applicable
Discharge Problem:
Unwitnessed fall, Abrasion of knee, left
Instructions: Preventing falls in adults, Skin Abrasions (DC), BLOOD PRESSURE
Prescriptions:
No Action
aspirin 325 MG tablet
325 mg PO DAILYPRN PRN (Reason: mild pain)
ropinirole 1 mg Tablet
1 mg PO BID
cyanocobalamin (vitamin B-12) [Vitamin B-12] 1,000 mcg Tablet
1,000 mcg PO DAILY
clopidogrel [Plavix] 75 mg Tablet
75 mg PO DAILY
omeprazole 40 mg Capsule,Delayed Release(Dr/Ec)
40 mg PO QPM
levothyroxine 75 mcg Tablet
75 mcg PO DAILY
lisinopril 30 mg Tablet
30 mg PO DAILY
carbidopa-levodopa 25-100 mg Tablet
2 tab PO TID
fluticasone propionate 50 mcg/actuation [place],Suspension
1 spray INTRANASAL DAILY
cholecalciferol (vitamin D3) [Vitamin D3] 50 mcg (2,000 unit) Capsule
50 mcg PO DAILY
metformin 500 mg Tablet
500 mg PO BID
furosemide 20 mg Tablet
20 mg PO DAILY
Systane Ultra 0.4-0.3 % Drops
1 drp BOTH EYES BID
insulin glargine [Lantus Solostar U-100 Insulin] 100 unit/mL (3 mL) Insulin Pen
15 unit SC HS
glucosamine HCl 1,500 mg Tablet
1,500 mg PO QPM
PreserVision AREDS-2 250-90-40-1 mg Capsule
1 tab PO BID
dapagliflozin propanediol [Farxiga] 10 mg Tablet
10 mg PO DAILY
Azo Bladder Control 300 mg Capsule
1 cap PO BID
Referrals:
Sreedhar Davis MD [Active] - As needed
Reece Perkins CRNP [Family Provider] - Follow up in 1 week
Activity Restrictions/Additional Instructions:
Return to the emergency department with any severe knee pain, numbness/tingling in left lower extremity, severe headache or neck pain, changes in mental status, worsening current symptoms, any signs infection or any other concerns
-As discussed�your x-ray of your left knee showed no evidence of acute fracture. Your CT of your head/neck showed no acute abnormalities.
-Continue to ice your knee tonight. Take Tylenol as needed for pain. Keep wound clean and dry. Monitor closely for signs of infection
-Follow-up with primary care for further evaluation/management as needed to ensure that symptoms are improving. If knee pain persist/worsens you may need to be seen by orthopedic. The contact information has been provided for you above.
Monitor your symptoms closely and return to the emergency department with any acute worsening/new symptoms or any other concerns
Interventions
Interventions:
*Risk Screen - Suicide Last Done: 11/08/24 22:59
*General Assessment Last Done: 11/08/24 22:59
*Neglect/Abuse Screening Last Done: 11/08/24 22:59
*ED- Fall Risk Assessment Last Done: 11/08/24 22:59
*ED COVID-19 Vaccine History Last Done: 11/08/24 22:59
*Nursing Disposition Last Done: 11/09/24 01:33
ED-Musculoskeletal Assessment Last Done: 11/08/24 19:26
ED- Neurological Assessment Last Done: 11/08/24 19:26
ED-Skin Assessment Last Done: 11/08/24 19:26
Discharge Date and Time
Discharge Date/Time: 11/09/24 01:33
Print Language: JORDANIAN
[2024-11-08] MEDS: ADACEL 0.5 ML IM (20:20)
[2024-11-08] MEDS: TYLENOL 650 MG PO (20:21)
[2024-11-08 21:50] VITALS: BP 140/73
[2024-11-08 22:00] VITALS: BP 123/62
[2024-11-08 23:00] VITALS: BP 138/78
[2024-11-09] VITALS: BP 144/69
[2024-11-09 01:00] VITALS: BP 131/63
== END 2024-11-09 01:33 ==
LOC: EMR 19:15
PROVIDERS: EMERGENCY PHYSICIAN Student in an Organized Health Care Education/Training Program; FAMILY PHYSICIAN Registered Nurse
DX: S80.212A Abrasion, left knee, initial encounter (principal); W19.XXXA Unspecified fall, initial encounter; G20.A1 Parkinson's disease without dyskinesia, without mention of fluctuations; F02.80 Dementia in other diseases classified elsewhere, unspecified severity, without behavioral disturbance, psychotic disturbance, mood disturbance, and anxiety; E03.9 Hypothyroidism, unspecified; E11.9 Type 2 diabetes mellitus without complications; E78.00 Pure hypercholesterolemia, unspecified; I10 Essential (primary) hypertension; Z79.02 Long term (current) use of antithrombotics/antiplatelets; Z86.73 Personal history of transient ischemic attack (TIA), and cerebral infarction without residual deficits; Z87.891 Personal history of nicotine dependence
CPT/HCPCS: 90471; 99284; 70450; 72125; 73564; 90715

== ENCOUNTER → 2025-01-26 11:02 | Outpatient (REF) | payer MEDICARE, OTHER, SELFPAY ==
[2025-01-26 11:40] LABS: Hemoglobin 11.8 g/dL (12.0-16.0); Mean Corp Hgb Conc. 32.8 g/dL (33.0-37.0); Mean Corpuscular Hgb 31.1 pg (27.0-31.0); Mean Corpuscular Volume 94.7 fL (81.0-99.0); Mean Platelet Volume 12.2 fL (7.4-10.4); Platelet Count 210 10^3/uL (130-400); Red Cell Dist. Width 13.7 % (11.5-14.5); White Blood Cell Count 7.1 10^3/uL (4.8-10.8)
[2025-01-26 12:04] LABS: Glycohemoglobin (HgbA1c) 8.5 % (4.0-5.6)
[2025-01-26 13:03] LABS: ALT (SGPT) 11 U/L (0-35); AST (SGOT) 13 U/L (14-36); Albumin 3.6 g/dl (3.5-5.0); Alkaline Phosphatase 119 U/L (38-126); Blood Urea Nitrogen 20 mg/dl (7-17); Calcium 9.5 mg/dl (8.4-10.2); Carbon Dioxide 26 mmol/L (22-30); Chloride 109 mmol/L (98-107); Glucose 120 mg/dl (70-99); Potassium 4.3 mmol/L (3.5-5.1); Sodium 140 mmol/L (135-145); Total Bilirubin 0.5 mg/dl (0.2-1.3); Total Protein 6.1 g/dl (6.3-8.2); eGFR > 60.00
== END ==
LOC: OLABLV 11:02
PROVIDERS: ATTENDING PHYSICIAN Registered Nurse
DX: E11.9 Type 2 diabetes mellitus without complications (principal); I10 Essential (primary) hypertension; I50.9 Heart failure, unspecified
CPT/HCPCS: 36415; 80053; 83036; 85027

== ENCOUNTER 2025-01-29 18:49 | Emergency (ER) | payer MEDICARE, OTHER, SELFPAY ==
[2025-01-29 18:52] VITALS: BP 109/55
[2025-01-29 18:55] VITALS: BP 109/55
--- NOTE | 2025-01-29 19:03 | ED.GENMED ---
History of Present Illness
General
Chief Complaint: Fall
Time Seen by Provider: 01/29/25 18:50
History of Present Illness
History of Present Illness:
Patient is a 84-year-old woman with history of dementia, hypertension, hyperlipidemia presenting to the emergency department with a fall. Per medics patient was standing up from the toilet when she fell. She did not hit her head or lose
consciousness. She does state that initially she was having some back pain but now the pain is mostly in her upper back. No numbness tingling. No weakness. She does not remember how she fell. Unclear if the fall was witnessed or unwitnessed.
Past History
Past History
ED Past Medical History: CVA, HTN, Hypercholesterolemia, NIDDM, Hypothyroidism and Other (Parkinson's disease, Headache, Amnesia, UTI)
ED Past Surgical History: Gynecological (Tereso ovaries removed, Left and right Lumpectomy) and Other (Abd surgery with endometriosis, Tereso cataracts)
Social History
Tobacco: Former smoker
Alcohol: Occasional
Personal:
Living: detention
Phy Exam
Physical Exam
Physical Exam:
GENERAL: no acute distress
HEENT: atraumatic, extraocular muscles intact, no signs of entrapment, dentition intact, no other obvious trauma
NECK: no midline tenderness, normal range of motion
BACK: no midline tenderness, no other obvious trauma
CHEST: Tenderness to palpation to left posterior ribs, no other obvious trauma
LUNGS: clear to auscultation bilaterally
CARDIOVASCULAR: regular rate and rhythm
ABDOMEN: soft, non-tender, no masses, no other obvious trauma
PELVIS: stable, no obvious injury
EXTREMITIES: Tenderness to palpation to the left dorsal midfoot with no obvious traumatic injuries otherwise moving all extremities, distal pulses intact, no other obvious trauma
NEUROLOGIC: awake, no focal deficits
Course
Orders/Labs/Results
Orders:
Orders
01/29/25 19:03
CT Cervical Spine W/o Iv Contr Urgent
Comment:
Reason For Exam: fall
CT Chest W/o Iv Contrast Urgent
Comment:
Reason For Exam: left posterior rib pain sp fall
CT Head W/o Iv Contrast Urgent
Comment:
Reason For Exam: fall
CR Foot - Left Min 3 Views Urgent
Comment:
Reason For Exam: ttp to dorsal foot
01/29/25 21:52
Cast Shoe Left-Treatment ONCE
Vital Signs
Initial and Last Documented VS:
Initial Vital Signs
Temp Pulse Resp BP Pulse Ox
97.7 F 82 15 109/55 99
01/29/25 18:52 01/29/25 18:52 01/29/25 18:52 01/29/25 18:52 01/29/25 18:52
Last Documented Vital Signs
Temp Pulse Resp BP Pulse Ox
97.7 F 84 15 109/55 100
01/29/25 18:52 01/29/25 19:15 01/29/25 19:15 01/29/25 18:55 01/29/25 19:15
MDM/Problems Addressed
Differential Diagnosis Includes:
Patient is a 84-year-old woman with history of dementia, hypertension, hyperlipidemia presenting to the emergency department after a fall. Vitals are unremarkable and exam does show tenderness to palpation to the left posterior ribs as well as the
left dorsal foot. Differential clues a traumatic intracranial injury versus rib fracture versus foot fracture. Given patient's dementia and unclear if the fall was witnessed we will obtain CT scan of the head and neck out of precaution. Will
obtain CT scan of the chest to evaluate for any rib fractures. Will obtain x-ray of the foot.
*Critical Care Note
Total Time (30-74mins, 75-104mins- exclusive of procedures): Not Applicable
Update Note
Update Note:
CT scan does shows 12th rib fracture. Patient's pain has been controlled. X-ray of the foot per my interpretation possible left fifth metatarsal fracture. Per the official read there is a possible mid diaphysis fracture that could be acute.
Patient does have tenderness to that site. I did discuss with on-call podiatry regarding weightbearing status. Given patient's age and fall risk patient will be nonweightbearing in a hard soled shoe with wheelchair. We did discuss with patient's
memory care center at [place] who states that they can accommodate her to be nonweightbearing wheelchair with assistance for transfer until evaluated by podiatry. Will discharge this time.
ED Attending Note
-
Portions of this chart may have been created with voice recognition software.� Occasional wrong word or��sound alike� substitutions may have occurred due to the inherent limitations of voice recognition software.
Discharge Plan
Departure
Patient Disposition: Home (Routine Discharge)
Date of Disposition: 01/29/25
Time of Disposition: 22:52
Patient with high blood pressure during this ER visit?: No
Discharge Problem:
Closed rib fracture, Fracture of fifth metatarsal bone of left foot
Instructions: Foot Fracture ED
Prescriptions:
No Action
aspirin 325 MG tablet
325 mg PO DAILYPRN PRN (Reason: mild pain)
ropinirole 1 mg Tablet
1 mg PO BID
cyanocobalamin (vitamin B-12) [Vitamin B-12] 1,000 mcg Tablet
1,000 mcg PO DAILY
clopidogrel [Plavix] 75 mg Tablet
75 mg PO DAILY
omeprazole 40 mg Capsule,Delayed Release(Dr/Ec)
40 mg PO QPM
levothyroxine 75 mcg Tablet
75 mcg PO DAILY
lisinopril 30 mg Tablet
30 mg PO DAILY
carbidopa-levodopa 25-100 mg Tablet
2 tab PO TID
fluticasone propionate 50 mcg/actuation [place],Suspension
1 spray INTRANASAL DAILY
cholecalciferol (vitamin D3) [Vitamin D3] 50 mcg (2,000 unit) Capsule
50 mcg PO DAILY
metformin 500 mg Tablet
500 mg PO BID
furosemide 20 mg Tablet
20 mg PO DAILY
Systane Ultra 0.4-0.3 % Drops
1 drp BOTH EYES BID
insulin glargine [Lantus Solostar U-100 Insulin] 100 unit/mL (3 mL) Insulin Pen
15 unit SC HS
glucosamine HCl 1,500 mg Tablet
1,500 mg PO QPM
PreserVision AREDS-2 250-90-40-1 mg Capsule
1 tab PO BID
dapagliflozin propanediol [Farxiga] 10 mg Tablet
10 mg PO DAILY
Azo Bladder Control 300 mg Capsule
1 cap PO BID
Referrals:
Radhames Vieyra DPM [Specified Professional Personl, Podiatry] - Call in 1-3 days for appt
Discharge Problem: Fracture of fifth metatarsal bone of left foot
Reece Perkins CRNP [Family Provider, Internal Medicine]
Activity Restrictions/Additional Instructions:
You were seen in the Emergency Department today for a fall. While you were here we performed a CT scan which did show a rib fracture. Please take Tylenol/Motrin as needed for pain. You did have a fracture to your foot. We did place you in a hard
soled shoe. Please do not bear any weight on it and only use the wheelchair until you have been evaluated by podiatry.
We would like for you to follow up with your primary care physician for further evaluation. If you experience fever, worsening of your symptoms, or develop any other new or concerning symptoms, please return to the Emergency Department immediately.
Please see the attached sheet for additional information.
Interventions
Interventions:
*General Assessment Last Done: 01/29/25 19:00
*Neglect/Abuse Screening Last Done: 01/29/25 19:00
*ED- Fall Risk Assessment Last Done: 01/29/25 19:00
*ED COVID-19 Vaccine History Last Done: 01/29/25 19:00
ED-Musculoskeletal Assessment Last Done: 01/29/25 19:00
ED- Neurological Assessment Last Done: 01/29/25 19:00
ED-Skin Assessment Last Done: 01/29/25 19:00
Discharge Date and Time
Print Language: SYRIAN
[2025-01-29 19:08] VITALS: BMI 23.8
[2025-01-30 03:25] VITALS: BP 122/57
== END 2025-01-30 05:22 ==
LOC: EMR 18:49
PROVIDERS: EMERGENCY PHYSICIAN Student in an Organized Health Care Education/Training Program; FAMILY PHYSICIAN Registered Nurse
DX: S22.32XA Fracture of one rib, left side, initial encounter for closed fracture (principal); S92.352A Displaced fracture of fifth metatarsal bone, left foot, initial encounter for closed fracture; W19.XXXA Unspecified fall, initial encounter; E03.9 Hypothyroidism, unspecified; E11.9 Type 2 diabetes mellitus without complications; E78.00 Pure hypercholesterolemia, unspecified; I10 Essential (primary) hypertension; F03.90 Unspecified dementia, unspecified severity, without behavioral disturbance, psychotic disturbance, mood disturbance, and anxiety
CPT/HCPCS: 99284; 70450; 71250; 72125; 73630

== ENCOUNTER 2025-02-11 22:59 | Emergency (ER) | payer MEDICARE, OTHER, SELFPAY ==
[2025-02-11 23:06] VITALS: BP 101/54; BMI 23.8
[2025-02-11 23:19] LABS: Glucose - Point of Care 307 mg/dl (70-99)
[2025-02-12] VITALS (10 sets, daily range): BP systolic 91–116; BP diastolic 46–68
--- NOTE | 2025-02-12 02:25 | ED.GENMED ---
History of Present Illness
General
Chief Complaint: Fall
Source: [facility] (Discussed with staff at facility)
Exam Limitations: dementia
Time Seen by Provider: 02/12/25 02:13
Nursing documentation reviewed up to this point in time: agreed with
History of Present Illness
History of Present Illness:
Patient is an 84-year-old female with history of dementia, hypertension, hyperlipidemia, diabetes who presents to the emergency department via EMS from [place] after unwitnessed fall. Patient unable to contribute to history given dementia. I
staff member at facility who states when they went to do the rounds she was lying on the ground. They believe she may have fallen out of bed. It is unknown if she had any head strike or loss of consciousness. At the time of discovering her
fall�apparently patient was reporting mild pain in the back of her head and her left shoulder. However�on my assessment�patient is sleeping comfortably and has no current complaints. She denies any headache or neck pain. She denies any back pain
or pain in her upper or lower extremities.
Patient is on Plavix and aspirin daily.
Past History
Past History
ED Past Medical History: CVA, HTN, Hypercholesterolemia, NIDDM, Hypothyroidism and Other (Parkinson's disease, Headache, Amnesia, UTI)
ED Past Surgical History: Gynecological (Tereso ovaries removed, Left and right Lumpectomy) and Other (Abd surgery with endometriosis, Tereso cataracts)
Social History
Tobacco: Former smoker
Alcohol: Occasional
Personal:
Living: jail
Review of Systems
Review of Systems
Allergies reviewed?: Yes
All Other Systems: ROS reviewed and negative except as documented in HPI and ROS
Phy Exam
Physical Exam
Physical Exam:
Vitals: Patient's vital signs are stable. Afebrile
General: Patient is sleeping comfortably on exam in no distress.
Skin: Warm and dry, no rashes or lesions. No lacerations or ecchymoses.
Head: Normocephalic, atraumatic
Eyes: Sclera nonicteric.
Throat: Protecting airway
Neck: Normal ROM, no cervical spine tenderness, no meningismus
Cardiac: Regular rate and rhythm, no murmurs.
Pulm: Normal respiratory effort, no wheezes, rales, rhonchi heard on exam
.
Abdomen: Abdomen soft and nontender. No ecchymoses.
Extremities: Bilateral upper and lower extremities atraumatic and nontender with full range of motion. Specifically no tenderness in bilateral hips with internal/external rotation. Palpable peripheral pulses bilaterally.
Neuro: AAOx1 to person, not place or time. No focal deficits
Psychiatric: Normal affect.
Course
Orders/Labs/Results
Orders:
Orders
02/12/25 00:57
EKG [Electrocardiogram (*1)] Urgent
Reason for Study: Fatigue / Weakness
EKG- Treatment ONCE
02/12/25 02:20
CT Head W/o Iv Contrast Urgent
Comment:
Reason For Exam: unwitnessed fall
Cervical Spine wo Contrast CT [CT Cervical Spine W/o Iv Contr] Urgent
Comment:
Reason For Exam: unwitnessed fall
Abnormal Lab Results
02/11/25 02/12/25
23:17 03:21
POC Glucose 307 H mg/dl 156 H mg/dl
(70-99) (70-99)
Vital Signs
Initial and Last Documented VS:
Initial Vital Signs
Pulse Ox
99
02/11/25 23:03
Last Documented Vital Signs
Temp Pulse Resp BP Pulse Ox
97.5 F 87 14 109/56 98
02/11/25 23:07 02/12/25 02:30 02/12/25 02:30 02/12/25 02:58 02/12/25 02:32
MDM/Problems Addressed
Differential Diagnosis Includes:
Not limited to: Contusion, concussion, intracerebral hemorrhage, skull fracture, etc.
MDM/Problems Addressed:
84-year-old female presenting after unwitnessed fall at nursing facility�they believe she may have fell from her bed. No history of vomiting or changes in mental status since fall. She does take a full-strength aspirin and Plavix daily. She has
stable vital signs on arrival. Physical exam as above. Patient sleeping comfortably on my initial evaluation. She has no evidence of acute traumatic injuries. No evidence of head, neck trauma, or any traumatic injuries to extremities. EKG
obtained upon arrival reveals normal sinus rhythm without acute ischemic changes or evidence of arrhythmia. Given unwitnessed nature of fall�will obtain CT imaging of head and cervical spine. No evidence of other traumatic injuries on exam to
indicate further imaging at this time. Will closely monitor and reassess.
Update: Patient remains asymptomatic and well-appearing, sleeping comfortably in room. She has remained hemodynamically stable�fingerstick glucose of 156. CT imaging of head and cervical spine without acute traumatic injuries. At this point�feel
stable for discharge back home with primary care follow-up as needed. Return precautions discussed on paperwork back to facility.
Chronic conditions affecting care:
Dementia, diabetes
Acute Exacerbation and/or Progression of Chronic Illness:
Acutely hyperglycemic
*Radiology
Radiology exam reviewed: radiology read reviewed
*Pulse Oximetry
SaO2: 98
Oxygen Mode of Delivery: Room air
Patient hypoxic: no
*EKG
Interpreted by ED Provider?: Yes
EKG Intrepretation Date: 02/12/25
Interpretation: abnormal
Comparison EKG: changes noted
Heart Rate: 87
Rate: normal
Rhythm: sinus
Branscomb: normal axis
Interval: normal QT interval
QRS Pattern: normal QRS
Ischemia: no ischemia
*Any Commodity Buyer Interpretation
Rate: normal
Interpretation: normal
Heart Rate: 82
Rhythm: sinus
*Critical Care Note
Total Time (30-74mins, 75-104mins- exclusive of procedures): Not Applicable
ED Attending Note
-
Portions of this chart may have been created with voice recognition software.� Occasional wrong word or��sound alike� substitutions may have occurred due to the inherent limitations of voice recognition software.
Discharge Plan
Departure
Patient Disposition: Home (Routine Discharge)
Date of Disposition: 02/12/25
Time of Disposition: 04:01
Patient with high blood pressure during this ER visit?: No
Condition: Good
Discharge Problem:
Unwitnessed fall
Instructions: Preventing falls in adults
Prescriptions:
No Action
aspirin 325 MG tablet
325 mg PO DAILYPRN PRN (Reason: mild pain)
ropinirole 1 mg Tablet
1 mg PO BID
cyanocobalamin (vitamin B-12) [Vitamin B-12] 1,000 mcg Tablet
1,000 mcg PO DAILY
clopidogrel [Plavix] 75 mg Tablet
75 mg PO DAILY
omeprazole 40 mg Capsule,Delayed Release(Dr/Ec)
40 mg PO QPM
levothyroxine 75 mcg Tablet
75 mcg PO DAILY
carbidopa-levodopa 25-100 mg Tablet
2 tab PO TID
fluticasone propionate 50 mcg/actuation [place],Suspension
1 spray INTRANASAL DAILY
cholecalciferol (vitamin D3) [Vitamin D3] 50 mcg (2,000 unit) Capsule
50 mcg PO DAILY
metformin 500 mg Tablet
500 mg PO BID
furosemide 20 mg Tablet
20 mg PO DAILY
Systane Ultra 0.4-0.3 % Drops
1 drp BOTH EYES BID
insulin glargine [Lantus Solostar U-100 Insulin] 100 unit/mL (3 mL) Insulin Pen
25 unit SC HS
glucosamine HCl 1,500 mg Tablet
1,500 mg PO QPM
PreserVision AREDS-2 250-90-40-1 mg Capsule
1 tab PO BID
dapagliflozin propanediol [Farxiga] 10 mg Tablet
10 mg PO DAILY
Azo Bladder Control 300 mg Capsule
1 cap PO BID
lisinopril 20 mg Tablet
20 mg PO DAILY
Referrals:
Reece Perkins CRNP [Family Provider, Internal Medicine] - Follow up in 5-7 days
Activity Restrictions/Additional Instructions:
RETURN TO THE EMERGENCY DEPARTMENT IF PATIENT DISPLAYS ANY CHANGES IN MENTAL STATUS, FOR REPEAT FALLS, VOMITING, NECK OR BACK PAIN, DIFFICULTY AMBULATING OR EVIDENCE OF PAIN IN EXTREMITIES, WORSENING CURRENT SYMPTOMS, OR ANY OTHER CONCERNS
- Imaging of the patient's head and cervical spine showed no acute traumatic injuries.
- Please have patient follow-up with her primary care provider in a few days to week for further evaluation and/to ensure symptoms are improving
Monitor patient's symptoms closely and return to the emergency department with any acute worsening/new symptoms or any other concerns
Interventions
Interventions:
*Risk Screen - Suicide Last Done: 02/11/25 23:14
*General Assessment Last Done: 02/11/25 23:07
*Neglect/Abuse Screening Last Done: 02/11/25 23:14
*ED COVID-19 Vaccine History Last Done: 02/11/25 23:07
ED-Musculoskeletal Assessment Last Done: 02/12/25 00:05
ED- Neurological Assessment Last Done: 02/12/25 00:05
ED-Skin Assessment Last Done: 02/12/25 00:05
Discharge Date and Time
Print Language: MALAGASY
[2025-02-12 03:23] LABS: Glucose - Point of Care 156 mg/dl (70-99)
== END 2025-02-12 06:15 | disposition home or self-care (01) ==
LOC: EMR 22:59
PROVIDERS: EMERGENCY PHYSICIAN Emergency Medicine; FAMILY PHYSICIAN Registered Nurse
DX: R51.9 Headache, unspecified (principal); M25.512 Pain in left shoulder; W19.XXXA Unspecified fall, initial encounter; E03.9 Hypothyroidism, unspecified; E78.00 Pure hypercholesterolemia, unspecified; E11.65 Type 2 diabetes mellitus with hyperglycemia; F02.80 Dementia in other diseases classified elsewhere, unspecified severity, without behavioral disturbance, psychotic disturbance, mood disturbance, and anxiety; G20.A1 Parkinson's disease without dyskinesia, without mention of fluctuations; I10 Essential (primary) hypertension; Z79.02 Long term (current) use of antithrombotics/antiplatelets; Z79.82 Long term (current) use of aspirin; Z86.73 Personal history of transient ischemic attack (TIA), and cerebral infarction without residual deficits; Z87.891 Personal history of nicotine dependence
CPT/HCPCS: 99284; 70450; 72125; 82962; 93005

== ENCOUNTER 2025-03-25 17:23 | Emergency (ER) | payer MEDICARE, OTHER, SELFPAY ==
[2025-03-25 17:29] VITALS: BP 128/74
[2025-03-25 18:34] VITALS: BP 115/59
[2025-03-25 19:00] VITALS: BP 132/64
--- NOTE | 2025-03-25 19:58 | ED.GENMED ---
History of Present Illness
General
Chief Complaint: Fall
Time Seen by Provider: 03/25/25 18:10
History of Present Illness
History of Present Illness:
84-year-old female presents the emergency department for evaluation of a witnessed fall at her nursing facility. Patient states that she 'tripped and fell' while ambulating and states she struck her left hip and left shoulder on the ground. She
denies a head injury however this was refuted by EMS. She does take antiplatelets but no anticoagulants. The patient reports only having pain to the left shoulder but denies other complaints at this time
Past History
Past History
ED Past Medical History: CVA, HTN, Hypercholesterolemia, NIDDM, Hypothyroidism and Other (Parkinson's disease, Headache, Amnesia, UTI)
ED Past Surgical History: Gynecological (Tereso ovaries removed, Left and right Lumpectomy) and Other (Abd surgery with endometriosis, Tereso cataracts)
Social History
Tobacco: Former smoker
Alcohol: Occasional
Personal:
Living: assisted
Review of Systems
Review of Systems
Allergies reviewed?: Yes
All Other Systems: ROS reviewed and negative except as documented in HPI and ROS
Phy Exam
Physical Exam
Physical Exam:
GEN: Well appearing, NAD, WDWN
HEENT: Oral mucosa moist, no scleral icterus
Cardiac: Regular rate
Lung: No respiratory distress, no tachypnea
MSK: No gross deformity or injuries. No shortening or external rotation of lower extremities, bilateral hip range of motion normal. Normal range of motion of the left shoulder with no bony tenderness
Skin: Good color, no pallor or jaundice, no rashes
Neuro: AO x3, moves all extremities freely
Psych: Calm, cooperative
Course
Orders/Labs/Results
Orders:
Orders
03/25/25 18:28
CR Hip - LT w/wo Pel 2-3 Vw* Urgent
Comment:
Reason For Exam: fall
Include a pelvis x-ray?: Yes
CR Shoulder - Left Min 2 View* Urgent
Comment:
Reason For Exam: fall
03/25/25 18:29
CT Head W/o Iv Contrast Urgent
Comment:
Reason For Exam: fall
Vital Signs
Initial and Last Documented VS:
Initial Vital Signs
Temp Pulse Resp BP Pulse Ox
98.2 F 71 18 128/74 98
03/25/25 17:29 03/25/25 17:29 03/25/25 17:29 03/25/25 17:29 03/25/25 17:29
Last Documented Vital Signs
Temp Pulse Resp BP Pulse Ox
98.2 F 83 15 159/79 99
03/25/25 17:29 03/25/25 19:15 03/25/25 19:15 03/25/25 20:00 03/25/25 20:00
MDM/Problems Addressed
MDM/Problems Addressed:
Imaging of the head obtained due to patient's use of Plavix and this was reassuring. X-rays of the left shoulder and left hip showed no evidence for bony pathology. Discharged back to her nursing facility in stable condition
*Pulse Oximetry
SaO2: 99
Oxygen Mode of Delivery: Room air
Patient hypoxic: no
*Critical Care Note
Total Time (30-74mins, 75-104mins- exclusive of procedures): Not Applicable
ED Attending Note
-
Portions of this chart may have been created with voice recognition software.� Occasional wrong word or��sound alike� substitutions may have occurred due to the inherent limitations of voice recognition software.
Discharge Plan
Departure
Patient Disposition: Home (Routine Discharge)
Date of Disposition: 03/25/25
Time of Disposition: 19:58
Patient with high blood pressure during this ER visit?: No
Discharge Problem:
Fall
Instructions: Preventing falls in adults
Prescriptions:
No Action
aspirin 325 MG tablet
325 mg PO DAILYPRN PRN (Reason: mild pain)
ropinirole 1 mg Tablet
1 mg PO BID
cyanocobalamin (vitamin B-12) [Vitamin B-12] 1,000 mcg Tablet
1,000 mcg PO DAILY
clopidogrel [Plavix] 75 mg Tablet
75 mg PO DAILY
omeprazole 40 mg Capsule,Delayed Release(Dr/Ec)
40 mg PO QPM
levothyroxine 75 mcg Tablet
75 mcg PO DAILY
carbidopa-levodopa 25-100 mg Tablet
2 tab PO TID
fluticasone propionate 50 mcg/actuation [place],Suspension
1 spray INTRANASAL DAILY
cholecalciferol (vitamin D3) [Vitamin D3] 50 mcg (2,000 unit) Capsule
50 mcg PO DAILY
metformin 500 mg Tablet
500 mg PO BID
furosemide 20 mg Tablet
20 mg PO DAILY
Systane Ultra 0.4-0.3 % Drops
1 drp BOTH EYES BID
insulin glargine [Lantus Solostar U-100 Insulin] 100 unit/mL (3 mL) Insulin Pen
25 unit SC HS
glucosamine HCl 1,500 mg Tablet
1,500 mg PO QPM
PreserVision AREDS-2 250-90-40-1 mg Capsule
1 tab PO BID
dapagliflozin propanediol [Farxiga] 10 mg Tablet
10 mg PO DAILY
Azo Bladder Control 300 mg Capsule
1 cap PO BID
lisinopril 20 mg Tablet
20 mg PO DAILY
Referrals:
Reece Perkins CRNP [Family Provider, Internal Medicine]
Interventions
Interventions:
*Risk Screen - Suicide Last Done: 03/25/25 19:19
*General Assessment Last Done: 03/25/25 18:35
*Neglect/Abuse Screening Last Done: 03/25/25 19:19
*ED- Fall Risk Assessment Last Done: 03/25/25 18:35
*ED COVID-19 Vaccine History Last Done: 03/25/25 18:35
*Nursing Disposition Last Done: 03/25/25 21:31
ED-Musculoskeletal Assessment Last Done: 03/25/25 18:35
ED- Neurological Assessment Last Done: 03/25/25 18:35
ED-Skin Assessment Last Done: 03/25/25 18:35
Discharge Date and Time
Discharge Date/Time: 03/25/25 21:36
Print Language: ALBANIAN
[2025-03-25 20:00] VITALS: BP 159/79
[2025-03-25 20:19] VITALS: BMI 24.9
== END 2025-03-25 21:36 ==
LOC: EMR 17:23
PROVIDERS: EMERGENCY PHYSICIAN Student in an Organized Health Care Education/Training Program; FAMILY PHYSICIAN Registered Nurse
DX: Z04.3 Encounter for examination and observation following other accident (principal); E11.9 Type 2 diabetes mellitus without complications; I10 Essential (primary) hypertension; E78.00 Pure hypercholesterolemia, unspecified; G20.A1 Parkinson's disease without dyskinesia, without mention of fluctuations; E03.9 Hypothyroidism, unspecified; Z79.02 Long term (current) use of antithrombotics/antiplatelets; Z79.82 Long term (current) use of aspirin; Z79.84 Long term (current) use of oral hypoglycemic drugs; Z79.4 Long term (current) use of insulin; Z86.73 Personal history of transient ischemic attack (TIA), and cerebral infarction without residual deficits; Z87.891 Personal history of nicotine dependence; W01.0XXA Fall on same level from slipping, tripping and stumbling without subsequent striking against object, initial encounter; Y92.129 Unspecified place in nursing home as the place of occurrence of the external cause
CPT/HCPCS: 99284; 70450; 73030; 73502

== ENCOUNTER 2025-05-27 09:46 | Emergency (ER) | payer MEDICARE, OTHER, SELFPAY ==
[2025-05-27] VITALS (9 sets, daily range): BP systolic 90–137; BP diastolic 44–69; O2SAT 99; BMI 26.5
--- NOTE | 2025-05-27 09:55 | ED.GENMED ---
History of Present Illness
General
Chief Complaint: Fall
Source: ambulance crew
Time Seen by Provider: 05/27/25 09:48
History of Present Illness
History of Present Illness:
84-year-old female with past medical history of dementia, hypertension, hyperlipidemia, [id number]-umoowbhmo diabetes presents to the emergency department for evaluation from [facility] dementia unit after she was found on the ground by staff this
morning, patient unable to provide any history due to her dementia, does not remember falling, currently complaining of left hip/thigh pain. Staff did not note any obvious injuries. EMS reports that staff at [facility] stated patient is at her usual
baseline mental status.
Past History
Past History
ED Past Medical History: CVA, HTN, Hypercholesterolemia, NIDDM, Hypothyroidism and Other (Parkinson's disease, Headache, Amnesia, UTI)
ED Past Surgical History: Gynecological (Tereso ovaries removed, Left and right Lumpectomy) and Other (Abd surgery with endometriosis, Tereso cataracts)
Social History
Tobacco: Former smoker
Alcohol: Occasional
Drug: None
Personal:
Living: group home
Review of Systems
Review of Systems
All Other Systems: ROS reviewed and negative except as documented in HPI and ROS
Phy Exam
Physical Exam
Physical Exam:
GENERAL: Somewhat sleepy but arousable, answers questions very slowly or not at all , in no apparent distress, pleasantly confused
HEAD: Normocephalic atraumatic
EYE: clear conjunctiva
NECK: Supple, no midline ttp
ENT: o/p clr, mmm.
CARDIAC: Regular rate and rhythm .
LUNGS: Clear breath sounds bilaterally, no acute respiratory distress, no wheezes/rales/rhonchi
ABDOMEN: Soft, without focal tenderness, no r/g, no cvat
NEUROLOGICAL: Alert and oriented to self but not place nor time
SKIN: Warm and dry, small skin abrasion anterior left patella
MUSCULOSKELETAL: No edema, well perfused. patient not performing active ROM, does allow for mild passive ROM at left knee but pain at hip with attempted ROM
PSYCH: Normal and appropriate interaction.
Scores
Heart Failure Risk
Heart Failure Risk Score: Not Applicable
Heart Score for Chest Pain Patients
STEMI patient?: Not applicable
Withdrawal Assessment of Alcohol
Withdrawal Assessment Completed?: Not applicable
Course
Orders/Labs/Results
Orders:
Orders
05/27/25 09:54
CT Cervical Spine W/o Iv Contr Urgent
Comment:
Reason For Exam: unwitnessed fall, dementia
CT Head W/o Iv Contrast Urgent
Comment:
Reason For Exam: unwitnessed fall, dementia
CR Hip - LT w/wo Pel 2-3 Vw* Urgent
Comment:
Reason For Exam: fall, pain
Include a pelvis x-ray?: Yes
05/27/25 09:59
Bedside Glucose- Treatment ONCE
05/27/25 12:50
PT Consult [Pt Eval And Treat] Urgent
Activity Level: Ambulate
Abnormal Lab Results
05/27/25
10:05
POC Glucose 101 H mg/dl
(70-99)
Vital Signs
Initial and Last Documented VS:
Initial Vital Signs
BP
104/50
05/27/25 09:54
Last Documented Vital Signs
Temp Pulse Resp BP Pulse Ox
98.0 F 64 14 137/66 98
05/27/25 09:56 05/27/25 09:56 05/27/25 09:56 05/27/25 15:00 05/27/25 13:32
MDM/Problems Addressed
Differential Diagnosis Includes:
Accidental fall
Syncope
Seizure
Hyper/hypoglycemia
Pelvic fracture
Hip fracture
ICH
MDM/Problems Addressed:
84-year-old female presenting to the ER for evaluation of what appears to be an accidental fall resulting in left knee and left hip pain, skin abrasion over the left knee noted. No other obvious signs of trauma. Patient reportedly at her baseline
mental status. Given she is unable to provide any history will obtain CT of the head and cervical spine. X-rays ordered. Disposition pending.
*Radiology
Radiology exam reviewed: preliminary read by ED provider (No acute fracture of the hip or pelvis) and radiology read reviewed
*Pulse Oximetry
Patient hypoxic: no
*Critical Care Note
Total Time (30-74mins, 75-104mins- exclusive of procedures): Not Applicable
Data Reviewed
Review of Other/Old Records Reveals: Records
Patient Management
Discussion with other providers: care home staff
Escalation/DeEscalation of care consider admission/obs:
I contacted patient's group home to discuss the results of the x-ray and CT. They note that at baseline patient is normally able to ambulate on her own or with assistance of a walker. Will have physical therapy evaluate the patient to ensure
safety. If she is unable to ambulate will then need to order CT to evaluate for further hip/pelvic pathology.
Patient able to ambulate with PT using walker and stable while doing so. Notified [facility] and patient will be transported back today.
ED Attending Note
-
Portions of this chart may have been created with voice recognition software.� Occasional wrong word or��sound alike� substitutions may have occurred due to the inherent limitations of voice recognition software.
Discharge Plan
Departure
Patient Disposition: Group Home/SNF
Date of Disposition: 05/27/25
Time of Disposition: 14:03
Patient with high blood pressure during this ER visit?: No
Discharge Problem:
Accidental fall
Instructions: Preventing falls in adults
Prescriptions:
No Action
aspirin 325 MG tablet
325 mg PO DAILYPRN PRN (Reason: mild pain)
ropinirole 1 mg Tablet
1 mg PO BID
cyanocobalamin (vitamin B-12) [Vitamin B-12] 1,000 mcg Tablet
1,000 mcg PO DAILY
clopidogrel [Plavix] 75 mg Tablet
75 mg PO DAILY
omeprazole 40 mg Capsule,Delayed Release(Dr/Ec)
40 mg PO QPM
levothyroxine 75 mcg Tablet
75 mcg PO DAILY
carbidopa-levodopa 25-100 mg Tablet
2 tab PO TID
fluticasone propionate 50 mcg/actuation [place],Suspension
1 spray INTRANASAL DAILY
cholecalciferol (vitamin D3) [Vitamin D3] 50 mcg (2,000 unit) Capsule
50 mcg PO DAILY
metformin 500 mg Tablet
500 mg PO BID
furosemide 20 mg Tablet
20 mg PO DAILY
Systane Ultra 0.4-0.3 % Drops
1 drp BOTH EYES BID
insulin glargine [Lantus Solostar U-100 Insulin] 100 unit/mL (3 mL) Insulin Pen
25 unit SC HS
glucosamine HCl 1,500 mg Tablet
1,500 mg PO QPM
PreserVision AREDS-2 250-90-40-1 mg Capsule
1 tab PO BID
dapagliflozin propanediol [Farxiga] 10 mg Tablet
10 mg PO DAILY
Azo Bladder Control 300 mg Capsule
1 cap PO BID
lisinopril 20 mg Tablet
20 mg PO DAILY
Referrals:
Latrell Sue Sr., MD [Family Provider, Family Practice]
Interventions
Interventions:
*Risk Screen - Suicide Last Done: 05/27/25 09:56
*General Assessment Last Done: 05/27/25 12:07
*Neglect/Abuse Screening Last Done: 05/27/25 12:07
*ED- Fall Risk Assessment Last Done: 05/27/25 09:56
*ED COVID-19 Vaccine History Last Done: 05/27/25 09:56
*ED Influenza Vaccine History Last Done: 05/27/25 15:33
ED-Musculoskeletal Assessment Last Done: 05/27/25 10:08
ED- Neurological Assessment Last Done: 05/27/25 10:08
ED-Skin Assessment Last Done: 05/27/25 10:08
Discharge Date and Time
Print Language: LITHUANIAN
[2025-05-27 10:07] LABS: Glucose - Point of Care 101 mg/dl (70-99)
== END 2025-05-27 16:27 ==
LOC: EMR 09:46
PROVIDERS: EMERGENCY PHYSICIAN Emergency Medicine; FAMILY PHYSICIAN Family Medicine
DX: M25.562 Pain in left knee (principal); M25.552 Pain in left hip; W19.XXXA Unspecified fall, initial encounter; F02.80 Dementia in other diseases classified elsewhere, unspecified severity, without behavioral disturbance, psychotic disturbance, mood disturbance, and anxiety; I10 Essential (primary) hypertension; E78.00 Pure hypercholesterolemia, unspecified; E11.9 Type 2 diabetes mellitus without complications; E03.9 Hypothyroidism, unspecified; G20.A1 Parkinson's disease without dyskinesia, without mention of fluctuations; Z86.73 Personal history of transient ischemic attack (TIA), and cerebral infarction without residual deficits; Z87.440 Personal history of urinary (tract) infections; Z87.891 Personal history of nicotine dependence; Z90.722 Acquired absence of ovaries, bilateral
CPT/HCPCS: 99284; 70450; 72125; 73502; 82962

== ENCOUNTER 2025-05-29 15:40 | Emergency (ER) | payer MEDICARE, OTHER, SELFPAY ==
[2025-05-29 15:43] VITALS: BP 110/53
--- NOTE | 2025-05-29 18:15 | ED.GENMED ---
History of Present Illness
General
Chief Complaint: Fall
Source: patient, ambulance crew and long term
Exam Limitations: dementia
Time Seen by Provider: 05/29/25 17:59
Nursing documentation reviewed up to this point in time: agreed with
History of Present Illness
History of Present Illness:
84-year-old female past history of dementia Parkinson's diabetes presenting to the emergency department today after a ground-level fall described as mechanical. Fell mainly on the right wrist she does not think she hit her head but does have some
memory deficiency. Patient is on Plavix.
Past History
Past History
ED Past Medical History: CVA, HTN, Hypercholesterolemia, NIDDM, Hypothyroidism and Other (Parkinson's disease, Headache, Amnesia, UTI)
ED Past Surgical History: Gynecological (Tereso ovaries removed, Left and right Lumpectomy) and Other (Abd surgery with endometriosis, Tereso cataracts)
Social History
Tobacco: Former smoker
Alcohol: Occasional
Drug: None
Personal:
Living: long term
Review of Systems
Review of Systems
Allergies reviewed?: Yes
All Other Systems: ROS reviewed and negative except as documented in HPI and ROS
Phy Exam
Physical Exam
Physical Exam:
GENERAL: Alert , in no apparent distress
EYE: pupils equal and reactive
NECK: Supple, no significant adenopathy.
ENT: o/p clr, mmm.
CARDIAC: Regular rate and rhythm .
LUNGS: Clear breath sounds bilaterally, no acute respiratory distress, no wheezes/rales/rhonchi
ABDOMEN: Soft, without focal tenderness, no r/g, no cvat
NEUROLOGICAL: Alert oriented to person place time, no focal neuro deficits
SKIN: Warm and dry, skin intact.
MUSCULOSKELETAL: Swelling discomfort of the right wrist with any movement. No pain to the remainder of the forearm upper arm or hand. No significant deformity.r
Course
Orders/Labs/Results
Orders:
Orders
05/29/25 15:45
Wrist, Right 3 Views [CR Wrist - Right Min 3 Views] Urgent
Comment:
Reason For Exam: fall, wrist pain
05/29/25 18:15
CT Head W/o Iv Contrast Urgent
Comment:
Reason For Exam: fall, liited history due to dementia
Vital Signs
Initial and Last Documented VS:
Initial Vital Signs
Temp Pulse Resp BP Pulse Ox
98.6 F 80 17 110/53 99
05/29/25 15:43 05/29/25 15:43 05/29/25 15:43 05/29/25 15:43 05/29/25 15:43
Last Documented Vital Signs
Temp Pulse Resp BP Pulse Ox
97.9 F 106 17 132/70 98
05/29/25 19:54 05/29/25 19:54 05/29/25 15:43 05/29/25 19:54 05/29/25 19:54
MDM/Problems Addressed
MDM/Problems Addressed:
84-year-old female presenting with concerns of right wrist pain after fall. Found to have a distal radius fracture with minimal displacement. Neuro vastly intact. Patient unable to give appropriate history concerning the CT scan was obtained,
patient is on Plavix. CT scan without emergent findings stable for discharge at this time. Return precautions given. Patient was splinted to the right wrist and advised for close orthopedic follow-up.
*Pulse Oximetry
SaO2: 99
Oxygen Mode of Delivery: Room air
Patient hypoxic: no (98)
*Critical Care Note
Total Time (30-74mins, 75-104mins- exclusive of procedures): Not Applicable
ED Attending Note
-
Portions of this chart may have been created with voice recognition software.� Occasional wrong word or��sound alike� substitutions may have occurred due to the inherent limitations of voice recognition software.
Discharge Plan
Departure
Patient Disposition: Home (Routine Discharge)
Date of Disposition: 10/12/25
Time of Disposition: 20:07
Patient with high blood pressure during this ER visit?: No
Condition: Good
Covid-19: Not Applicable
Discharge Problem:
Fracture of right wrist, Fall
Instructions: Wrist fracture
Prescriptions:
No Action
aspirin 325 MG tablet
325 mg PO DAILYPRN PRN (Reason: mild pain)
ropinirole 1 mg Tablet
1 mg PO BID
cyanocobalamin (vitamin B-12) [Vitamin B-12] 1,000 mcg Tablet
1,000 mcg PO DAILY
clopidogrel [Plavix] 75 mg Tablet
75 mg PO DAILY
omeprazole 40 mg Capsule,Delayed Release(Dr/Ec)
40 mg PO QPM
levothyroxine 75 mcg Tablet
75 mcg PO DAILY
carbidopa-levodopa 25-100 mg Tablet
2 tab PO TID
fluticasone propionate 50 mcg/actuation [place],Suspension
1 spray INTRANASAL DAILY
cholecalciferol (vitamin D3) [Vitamin D3] 50 mcg (2,000 unit) Capsule
50 mcg PO DAILY
metformin 500 mg Tablet
500 mg PO BID
furosemide 20 mg Tablet
20 mg PO DAILY
Systane Ultra 0.4-0.3 % Drops
1 drp BOTH EYES BID
insulin glargine [Lantus Solostar U-100 Insulin] 100 unit/mL (3 mL) Insulin Pen
25 unit SC HS
glucosamine HCl 1,500 mg Tablet
1,500 mg PO QPM
PreserVision AREDS-2 250-90-40-1 mg Capsule
1 tab PO BID
dapagliflozin propanediol [Farxiga] 10 mg Tablet
10 mg PO DAILY
Azo Bladder Control 300 mg Capsule
1 cap PO BID
lisinopril 20 mg Tablet
20 mg PO DAILY
Referrals:
Lisa Schwab I., DO [Active, Orthopedics] - Follow up in 5-7 days
UNKNOWN - PT DOES,NOT KNOW [Family Provider]
Activity Restrictions/Additional Instructions:
You came to the emergency department today after a fall you are found have a right-sided wrist fracture. You were splinted. Please follow closely with orthopedics. Return for any worsening, new or concerning symptoms.
Interventions
Interventions:
*Risk Screen - Suicide Last Done: 05/29/25 15:45
*General Assessment Last Done: 05/29/25 15:45
*Neglect/Abuse Screening Last Done: 05/29/25 15:45
*ED COVID-19 Vaccine History Last Done: 05/29/25 15:45
*ED Influenza Vaccine History Last Done: 05/29/25 15:45
ED-Musculoskeletal Assessment Last Done: 05/29/25 18:15
ED- Neurological Assessment Last Done: 05/29/25 18:15
ED-Skin Assessment Last Done: 05/29/25 18:15
Discharge Date and Time
Print Language: CAMEROONIAN
[2025-05-29 19:54] VITALS: BP 132/70
== END 2025-05-29 20:41 | disposition home or self-care (01) ==
LOC: EMR 15:40
PROVIDERS: EMERGENCY PHYSICIAN Emergency Medicine
DX: S52.571A Other intraarticular fracture of lower end of right radius, initial encounter for closed fracture (principal); W18.30XA Fall on same level, unspecified, initial encounter; F02.80 Dementia in other diseases classified elsewhere, unspecified severity, without behavioral disturbance, psychotic disturbance, mood disturbance, and anxiety; G20.A1 Parkinson's disease without dyskinesia, without mention of fluctuations; E03.9 Hypothyroidism, unspecified; E11.9 Type 2 diabetes mellitus without complications; E78.00 Pure hypercholesterolemia, unspecified; I10 Essential (primary) hypertension; Z79.02 Long term (current) use of antithrombotics/antiplatelets; Z86.73 Personal history of transient ischemic attack (TIA), and cerebral infarction without residual deficits; Z87.891 Personal history of nicotine dependence
CPT/HCPCS: 29125; 99284; 70450; 73110

== ENCOUNTER → 2025-06-01 15:22 | Outpatient (REF) | payer MEDICARE, OTHER, SELFPAY ==
[2025-06-01 17:18] LABS: Hematocrit 37.9 % (37.0-47.0); Hemoglobin 12.2 g/dL (12.0-16.0); Mean Corp Hgb Conc. 32.2 g/dL (33.0-37.0); Mean Corpuscular Volume 97.9 fL (81.0-99.0); Platelet Count 213 10^3/uL (130-400); Red Cell Dist. Width 13.9 % (11.5-14.5)
[2025-06-01 17:24] LABS: ALT (SGPT) 16 U/L (0-35); AST (SGOT) 32 U/L (14-36); Albumin 4.1 g/dl (3.5-5.0); Alkaline Phosphatase 101 U/L (38-126); Blood Urea Nitrogen 23 mg/dl (7-17); Calcium 9.3 mg/dl (8.4-10.2); Carbon Dioxide 27 mmol/L (22-30); Chloride 111 mmol/L (98-107); Glucose 62 mg/dl (70-99); Potassium 4.3 mmol/L (3.5-5.1); Sodium 145 mmol/L (135-145); Total Protein 6.8 g/dl (6.3-8.2); eGFR > 60.00
[2025-06-02 08:40] LABS: Glycohemoglobin (HgbA1c) 7.9 % (4.0-5.6)
[2025-06-02 14:27] LABS: Medical Necessity Pt Refused B12
[2025-06-03 18:38] LABS: Vitamin B12 917 pg/ml (239-931)
== END ==
LOC: OLABLV 15:22
PROVIDERS: ATTENDING PHYSICIAN Nurse Practitioner Gerontology
DX: Z13.21 Encounter for screening for nutritional disorder (principal); E11.65 Type 2 diabetes mellitus with hyperglycemia; E03.9 Hypothyroidism, unspecified; G20.A1 Parkinson's disease without dyskinesia, without mention of fluctuations; D51.9 Vitamin B12 deficiency anemia, unspecified
CPT/HCPCS: 80053; 82607; 83036; 85027

== ENCOUNTER → 2025-06-03 11:08 | Outpatient (REF) | payer MEDICARE, OTHER, SELFPAY ==
[2025-06-03 12:12] LABS: Urine Character Slightly Cloudy (Clear)
[2025-06-03 12:19] LABS: Urine Squamous Cell 0-2 /LPF (Few); Urine White Cell 80-90 /HPF (0-5)
== END ==
LOC: OLABLV 11:08
PROVIDERS: ATTENDING PHYSICIAN Nurse Practitioner Gerontology
DX: R46.89 Other symptoms and signs involving appearance and behavior (principal); N39.0 Urinary tract infection, site not specified
CPT/HCPCS: 81003; 81015; 87086

== ENCOUNTER 2025-07-05 19:05 | Inpatient (IN) | payer MEDICARE, OTHER, SELFPAY ==
[2025-07-05] VITALS (9 sets, daily range): BP systolic 137–155; BP diastolic 61–87; BMI 26.1; BMI 25.0
[2025-07-05 13:05] LABS: Glucose - Point of Care 76 mg/dl (70-99)
--- NOTE | 2025-07-05 13:47 | ED.GENMED ---
History of Present Illness
General
Chief Complaint: Change in Mental Status
Source: patient
Exam Limitations: none
Time Seen by Provider: 07/05/25 13:36
History of Present Illness
History of Present Illness:
See MDM
Past History
Past History
ED Past Medical History: CVA, HTN, Hypercholesterolemia, NIDDM, Hypothyroidism and Other (Parkinson's disease, Headache, Amnesia, UTI)
ED Past Surgical History: Gynecological (Tereso ovaries removed, Left and right Lumpectomy) and Other (Abd surgery with endometriosis, Tereso cataracts)
Social History
Tobacco: Former smoker
Alcohol: Occasional
Drug: None
Personal:
Living: penitentiary
Phy Exam
Physical Exam
Physical Exam:
See MDM
Scores
NIH Stroke Score
Level of Consciousness: 0 - Alert
LOC Questions: 2-Neither correct
LOC Commands: 2-Performs neither correctly
Best Horizontal Gaze: 0-Normal
Visual Carrasco: 0=Normal, no visual loss
Facial Palsy: 0=Normal, symmetrical
Motor - Right Arm: 0=No drift 10 seconds
Motor - Left Arm: 0=No drift 10 seconds
Motor - Right Le-No drift 5 seconds
Motor - Left Le-No drift 5 seconds
Limb Ataxia: 0-Absent
Sensation: 0-Normal
Best Language: 3-Mute/global aphasia
Dysarthria: 0-Normal
Extinction and Inattention: 0-No abnormality
NIH Total Score:: 7
Course
Orders/Labs/Results
Orders:
Orders
07/05/25 13:45
Electrocardiogram (*1) Urgent
Reason for Study: Fatigue / Weakness
EKG- Treatment ONCE
07/05/25 13:46
CT Head W/o Iv Contrast Urgent
Comment:
Reason For Exam: altered
07/05/25 13:55
Complete Blood Count/With Diff Urgent
Comprehensive Metabolic Panel Urgent
07/05/25 14:18
Urinalysis Reflex To Culture Urgent
Date Specimen was Collected: 07/05/25
Time Specimen was Collected: 14:17
Urine Microscopic Reflex Cult Urgent
Urine Culture Urgent
PARISH Source: U
Specimen Description:
Date Specimen was Collected: 07/05/25
Time Specimen was Collected: 14:17
07/05/25 15:57
CefTRIAXone [Rocephin] 1,000 mg IV NOW STA
Abnormal Lab Results
07/05/25 07/05/25
13:55 14:18
RBC 4.05 L 10^6/uL
(4.20-5.40)
MCH 31.4 H pg
(27.0-31.0)
MCHC 32.9 L g/dL
(33.0-37.0)
MPV 11.9 H fL
(7.4-10.4)
BUN 21 H mg/dl
(7-17)
Ur Occult Blood Reflex 4+ A
(Negative)
Leukocyte Esterase Rfl 3+ A
(Negative)
Urine RBC 3-6 A /HPF
(0-2)
Urine WBC (Reflex) 50-60 A /HPF
(0-5)
Urine Bacteria (Reflex) Few A
(Negative)
Urine Glucose 3+ A
(Negative)
Urine Albumin (Reflex) 2+ A
(Neg - Trace)
07/05/25 13:55
07/05/25 13:55
Vital Signs
Initial and Last Documented VS:
Initial Vital Signs
Temp Pulse Resp BP Pulse Ox
97.4 F 70 12 137/87 99
07/05/25 13:02 07/05/25 13:02 07/05/25 13:02 07/05/25 13:02 07/05/25 13:02
Last Documented Vital Signs
Temp Pulse Resp BP Pulse Ox
97.4 F 70 13 137/87 99
07/05/25 13:02 07/05/25 13:02 07/05/25 13:02 07/05/25 13:02 07/05/25 13:51
MDM/Problems Addressed
Differential Diagnosis Includes:
Note:
CHIEF COMPLAINT(S)
Unresponsiveness.
HISTORY OF PRESENT ILLNESS
The patient is an 84-year-old female with a history of stroke and seizure disorder, who presented with unresponsiveness. It is not certain when she was last known normal. The next morning, those checking on her found that she was unresponsive but
able to follow with her eyes, yet she was not verbally responsive. The patients blood glucose level was measured at 76 mg/dL. She is known to have diabetes.
SOCIAL DETERMINANTS OF HEALTH
Per the family members report, the patient lives at home with regular check-ins, indicating an existing support system.
PHYSICAL EXAM
General: Alert, no acute distress. Sitting in bed comfortably
Skin: Warm, dry.
Head: Normocephalic, atraumatic
Neck: Appears supple, trachea midline.
Eyes, Ears, Nose, Mouth, and Throat: Moist mucous membranes
Cardiovascular: No signs of cyanosis. Regular rate and rhythm
Respiratory: Respirations are non-labored.
Abdomen: Non-distended
Musculoskeletal: No deformities
Neurological: Moving all 4 extremities. Patient is tracking when I walk around the room. Patient is mute and not answering any questions and does not even appear to be trying to speak
Psychiatric: Flat affect
DIFFERENTIAL DIAGNOSIS
The Differential Diagnosis includes, in no particular order and is not limited to:
- Hypoglycemia
- Stroke recurrence
- Postictal state post-seizure
- Medication-related effect
- Metabolic encephalopathy
- Transient ischemic attack
- Infection leading to altered mental state (e.g., UTI or pneumonia)
- Electrolyte imbalance
- Hypothyroidism
- Acute intracranial event
SUMMARY OF ENCOUNTER
An 84-year-old female with a past medical history of stroke and seizure disorder presented to the emergency department due to unresponsiveness. The patient was found in this state by caregivers the morning following a night where she was reported to
have been her normal self. Physical examination revealed she was non-verbal but visually attentive. Given the concerns regarding her unresponsiveness and pre-existing conditions, a thorough assessment including blood work was initiated to
investigate the cause and provide appropriate management.
DISPOSITION
Admit for further evaluation and management due to altered mental status with unclear etiology.
DIAGNOSIS
- Altered mental status, unspecified (R41.82)
- History of stroke (Z86.73)
- Seizure disorder (G40.909)
- Diabetes mellitus (E11.9)
SUMMARY OF ENCOUNTER
An 84-year-old female presented to the emergency department with unresponsiveness. She has a history of stroke and seizure disorder. The patients unresponsive state was noticed by caregivers the morning followng a normal evening. Workers noted she
responded to visual stimuli but was non-verbal. Blood glucose was noted at 76 mg/dL, with diabetes being a known ailment. Upon further examination and workup in the emergency department, she was found to have a urinary tract infection. Management
included the initiation of ceftriaxone to address the infection. Due to the combination of altered mental status and infectious etiology, she was admitted to the hospitalist service for further evaluation and management.
DISPOSITION
Admit to hospitalist service for further evaluation and management.
ASSESSMENT
Altered mental status, possibly due to urinary tract infection, with underlying history of stroke and seizure disorder.
EMERGENCY TREATMENTS ADMINISTERED
Ceftriaxone was started for the treatment of a urinary tract infection.
INDEPENDENT REVIEW OF LABS AND INTERPRETATION OF TESTS
My independent review of the following confirmed urinary tract infection, which led to the decision to administer ceftriaxone.
MEDICAL DECISION MAKING
- Complexity of Data Reviewed: Chronic conditions affecting care include stroke, seizure disorder, and diabetes mellitus. Differential diagnosis included hypoglycemia, stroke recurrence, postictal state post-seizure, medication-related effect,
metabolic encephalopathy, transient ischemic attack, infection leading to altered mental state (e.g., UTI or pneumonia), electrolyte imbalance, hypothyroidism, acute intracranial event.
- Data:
- Category 1: Tests reviewed identified a urinary tract infection.
- Category 3: Discussion of management with a hospitalist was conducted regarding the patients admission for further workup.
DIAGNOSIS
- Urinary tract infection (N39.0)
- Altered mental status, unspecified (R41.82)
- History of stroke (Z86.73)
- Seizure disorder (G40.909)
- Diabetes mellitus (E11.9)
*Pulse Oximetry
SaO2: 99
Oxygen Mode of Delivery: Room air
Patient hypoxic: no
*Critical Care Note
Total Time (30-74mins, 75-104mins- exclusive of procedures): Not Applicable
ED Attending Note
-
Portions of this chart may have been created with voice recognition software.� Occasional wrong word or��sound alike� substitutions may have occurred due to the inherent limitations of voice recognition software.
Discharge Plan
Departure
Patient Disposition: Admit
Date of Disposition: 07/05/25
Time of Disposition: 16:04
Admit to: Med/Surg
Presentation/result/management discussed w/ accepting MD/DO: Hospitalist
Discharge Problem:
Acute UTI, Altered mental status
Prescriptions:
No Action
cyanocobalamin (vitamin B-12) [Vitamin B-12] 1,000 mcg Tablet
1,000 mcg PO DAILY
clopidogrel [Plavix] 75 mg Tablet
75 mg PO DAILY
omeprazole 40 mg Capsule,Delayed Release(Dr/Ec)
40 mg PO QPM
levothyroxine 75 mcg Tablet
75 mcg PO DAILY
carbidopa-levodopa 25-100 mg Tablet
2 tab PO TID
fluticasone propionate 50 mcg/actuation [place],Suspension
1 spray INTRANASAL DAILY
cholecalciferol (vitamin D3) [Vitamin D3] 50 mcg (2,000 unit) Capsule
50 mcg PO DAILY
metformin 500 mg Tablet
500 mg PO BID
furosemide 20 mg Tablet
20 mg PO DAILY
Systane Ultra 0.4-0.3 % Drops
1 drp BOTH EYES BID
insulin glargine [Lantus Solostar U-100 Insulin] 100 unit/mL (3 mL) Insulin Pen
15 unit SC DAILY
glucosamine HCl 1,500 mg Tablet
1,500 mg PO QPM
PreserVision AREDS-2 250-90-40-1 mg Capsule
1 tab PO BID
dapagliflozin propanediol [Farxiga] 10 mg Tablet
10 mg PO DAILY
Azo Bladder Control 300 mg Capsule
1 cap PO BID
lisinopril 20 mg Tablet
20 mg PO DAILY
acetaminophen [Tylenol Extra Strength] 500 mg Tablet
1,000 mg PO TID
ropinirole 0.5 mg Tablet
0.5 mg PO TID
ibuprofen [Advil] 200 mg Tablet
400 mg PO TID
insulin glargine [Lantus Solostar U-100 Insulin] 100 unit/mL (3 mL) Insulin Pen
12 unit SC HS
Referrals:
Latrell Sue Sr., MD [Family Provider, Family Practice]
Interventions
Interventions:
*Risk Screen - Suicide Last Done: 07/05/25 13:23
*General Assessment Last Done: 07/05/25 13:23
*Neglect/Abuse Screening Last Done: 07/05/25 13:02
*ED- Fall Risk Assessment Last Done: 07/05/25 13:02
*ED COVID-19 Vaccine History Last Done: 07/05/25 13:02
*ED Influenza Vaccine History Last Done: 07/05/25 13:02
ED- Neurological Assessment Last Done: 07/05/25 13:23
Discharge Date and Time
Print Language: GAMBIAN
[2025-07-05 14:14] LABS: Hematocrit 38.6 % (37.0-47.0); Hemoglobin 12.7 g/dL (12.0-16.0); Mean Corp Hgb Conc. 32.9 g/dL (33.0-37.0); Mean Corpuscular Volume 95.3 fL (81.0-99.0); Nucleated Red Blood Cells % 0 %; Platelet Count 237 10^3/uL (130-400); Red Cell Dist. Width 13.8 % (11.5-14.5)
[2025-07-05 14:23] LABS: ALT (SGPT) < 10 U/L (0-35); AST (SGOT) 15 U/L (14-36); Albumin 3.9 g/dl (3.5-5.0); Alkaline Phosphatase 106 U/L (38-126); Blood Urea Nitrogen 21 mg/dl (7-17); Calcium 9.1 mg/dl (8.4-10.2); Carbon Dioxide 30 mmol/L (22-30); Chloride 105 mmol/L (98-107); Estimated Creatinine Clearance 59 ml/min; Glucose 71 mg/dl (70-99); Potassium 4.0 mmol/L (3.5-5.1); Sodium 137 mmol/L (135-145); Total Protein 6.7 g/dl (6.3-8.2); eGFR > 60.00
[2025-07-05 14:55] LABS: Urine Character Slightly Cloudy (Clear)
[2025-07-05 15:19] LABS: Urine Squamous Cell 26-30 /LPF (Few)
[2025-07-05 15:20] LABS: Urine White Cell 50-60 /HPF (0-5)
[2025-07-05] MEDS: ROCEPHIN 1000 MG IV (16:37)
--- NOTE | 2025-07-05 17:05 | CM ---
Patient from [facility], memory care unit. CM spoke with Dixie Torres. Patient was using walker and wheelchair but was for follow up with ortho due to recent fracture of the arm. Patient has a guardian and she was notified by staff at [facility]. CM
will follow for discharge planning needs.
Plan; is SNF vs return to personal care pending medical treatment plan.
--- NOTE | 2025-07-05 18:32 | HPS.HSE ---
Addendum entered and electronically signed by La Nena Sam MD 07/05/25 19:18:
I personally performed a history and physical exam of the patient and discussed management with the resident. I reviewed the resident's note and agree with the documented findings and plan of care HPI/CC.
GENERAL: well developed, well nourished, female in no apparent distress--Ceribell monitor in place
HEENT: NC/AT
HEART: regular rate and rhythm, +S1, +S2
LUNGS : clear to auscultation bilaterally
ABDOM: soft, nontender, nondistended, + bowel sounds
EXT: no cyanosis, clubbing, or edema--right wrist with splint
NEUROLOGIC: apparent dementia--tremors and delayed response c/w Parkinson's
altered mental status--pt was not responding to the staff at [facility]--per chart review pt with hx of stroke and seizures--suspect seizure with post ictal state (unfortunately Ceribell monitor was not placed for at least 1/2 hour after I requested
the ED to place, by that time, pt was alert and talking) so likely the result will be negative for seizure--other possibilities include Parkinson's and progressive dementia (wax and wane)--doubt CVA but head CT pending, doubt infection and UA was
NOT a clean catch (nevertheless she received IV rocephin in ED)--would hold on further ABX--drug mixup at [facility] a possibility but unlikely--ADMIT--check MRI brain, recheck UA clean catch and U tox screen (mostly to look for meds not on her med
list)--neuro consult--speech eval, PT/OT
recent right wrist fracture--cannot bear weight on right wrist--PT/OT
Parkinson disease/dementia- continue carbidopa-levodopa- continue ropinirole
Type 2 DM-- low resistance SSI ordered- continue AM and PM insulin glargine- holding metformin for now--would like to see better trending of sugars
Essential HTN- continue lisinopril
HLD- no statin on med review- lipid panel ordered
Hypothyroidism- continue levothyroxine--check TSH
GERD- continue omeprazole
Other chronic issues
- chart review reports: paroxysmal atrial fibrillation (not on anticoagulation), CHF-unspecified, and myasthenia gravis (no meds on med list)
Code status-- Full code--pt has a guardian
DVT proph
Original Note:
Family Physician
-
Family Physician: Latrell Sue Sr., MD
Chief Complaint
-
altered mental status
History of Present Illness
84 yo F PMH dementia, Parkinson disease, CVA, seizure disorder (reported on chart), diabetes mellitus, hypothyroidism, essential HTN, HLD, and GERD was found to be unresponsive at her [facility].
Patient is a poor historian and has a right wrist fracture in brace due to falls.
Per chart review, she was nonverbal but visually attentive to staff at the [facility] this morning. Her last known normal is likely yesterday evening during dinner.
During our encounter, the patient was noted to be conversant. does not recall preceding events. However, she denies headache, dizziness, lightheadeness, changes in vision, chest pain, dyspnea, nausea/vomiting/diarrhea, abdominal pain, constipation,
dysuria.
Her PMH is notable for multiple falls (3 documented visits to the ED over the past 3 months, CT head noncontrast were all negative for bleed during those instances).
Social hx- former smoker, occasional EtOH, no recreational drug use. Coming from [facility]
In the ED, VS n/f BP 131/87, HR 70, RR 13, T 9.4, O2sat 99%
EKG NSR
CTH noncontrast ordered
UA consistent with contamination
CBC largely unremarkable
Electrolytes within normal limits
LFTs withn normal limits
She was administered ceftriaxone in ED for concern for UTI
Per documentation in ED, patient was still nonresponsive verbally and only visually tracking, however, during our encounter, we found her to be conversant.
Medical History
Past Medical History
Past Medical History: Reports Arrhythmia (chart reviews says atrial fibrillation), CHF (chart review unspecified), CVA, Dementia, GERD, HTN, Hypercholesterolemia, Hypothyroidism, NIDDM and Seizures (per chart review)
Past Surgical History: Reports Gynocological (Tereso ovaries removed, Left and right Lumpectomy) and Other (Abd surgery with endometriosis, Tereso cataracts)
Social History
Tobacco: Former Smoker
Alcohol: Occasional
Drug: None
Living: Skilled Nursing ([facility])
Family History
Family History: Unable to Obtain
Allergies / Home Medications
Allergies reflects when Allergies were last updated in [facility].
Home Medications with original date entered in [facility]
Allergy/Medication List:
Allergies
Allergy/AdvReac Type Severity Reaction Status Date / Time
No Known Drug Allergies Allergy Unknown Verified 01/29/25 18:58
SEASONAL ALLERGIES Allergy Unknown Uncoded 01/29/25 18:58
Home Medications
carbidopa 25 mg-levodopa 100 mg tablet 2 tab PO TID Neurological Condition 03/03/23
cholecalciferol (vitamin D3) 50 mcg (2,000 unit) capsule (Vitamin D3) 50 mcg PO DAILY Supplement 03/03/23
clopidogrel 75 mg tablet (Plavix) 75 mg PO DAILY Blood Clot Prevention/Tx 03/03/23
cyanocobalamin (vitamin B-12) 1,000 mcg tablet (Vitamin B-12) 1,000 mcg PO DAILY Supplement 03/03/23
fluticasone propionate 50 mcg/actuation nasal spray,suspension 1 spray intranasal DAILY Allergies 03/03/23
levothyroxine 75 mcg tablet 75 mcg PO DAILY Thyroid 03/03/23
omeprazole 40 mg capsule,delayed release 40 mg PO QPM Gastrointestinal Issue 03/03/23
dapagliflozin propanediol 10 mg tablet (Farxiga) 10 mg PO DAILY Diabetes 09/19/24
furosemide 20 mg tablet 20 mg PO DAILY Fluid Retention/Swelling 09/19/24
glucosamine HCl 1,500 mg tablet 1,500 mg PO QPM Supplement 09/19/24
insulin glargine 100 unit/mL (3 mL) subcutaneous pen (Lantus Solostar U-100 Insulin) 15 unit SC DAILY Diabetes 09/19/24
metformin 500 mg tablet 500 mg PO BID Diabetes 09/19/24
peg 400-propylene glycol 0.4 %-0.3 % eye drops (Systane Ultra) 1 drp BOTH EYES BID Eye Condition 09/19/24
pumpkin seed extract-soy germ 300 mg capsule (Azo Bladder Control) 1 cap PO BID Supplement 09/19/24
vit C 250 mg-vit E 90 mg-zinc 40 mg-copper 1 ic-auhkth-kbhkrl capsule (PreserVision AREDS-2) 1 tab PO BID Supplement 09/19/24
lisinopril 20 mg tablet 20 mg PO DAILY Heart Disease/Condition 02/12/25
acetaminophen 500 mg tablet (Tylenol Extra Strength) 1,000 mg PO TID Pain 07/05/25
ibuprofen 200 mg tablet (Advil) 400 mg PO TID Pain 07/05/25
insulin glargine 100 unit/mL (3 mL) subcutaneous pen (Lantus Solostar U-100 Insulin) 12 unit SC HS Diabetes 07/05/25
ropinirole 0.5 mg tablet 0.5 mg PO TID Neurological Condition 07/05/25
Review of Systems
-
History Source: Patient
Constitutional: Reports No Symptoms
EENT: Reports No Symptoms
Respiratory: Reports No Symptoms
Cardiac: Reports No Symptoms
Abdomen/GI: Reports No Symptoms
: Reports No Symptoms
Musculoskeletal: Reports Other (back pain)
Skin: Reports No Symptoms
Neurological: Reports No Symptoms
Psych: Reports No Symptoms
Physical Exam
Vital Signs
Vital Signs
Temp Pulse Resp BP Pulse Ox
97.4 F 82 12 149/64 100
07/05/25 13:02 07/05/25 18:15 07/05/25 18:15 07/05/25 18:00 07/05/25 18:15
Physical Exam
General: Comfortable
HEENT: NormoCephalic
Respiratory: Clear
Cardiac: Other (no murmurs on my exam)
GI: Soft, Non Tender and Non Distended
Genito-urinary: No costovertebral tender
Musculoskeletal: Other (nonpitting edema lower legs bilaterally, 1+)
Skin: Warm
Neuro: Awake, Alert, Oriented (only to name, and location), Nonfocal/grossly intact and Other (PERLLA, EOMI, upper strength 4/5, lower strength 4/5)
Psych: Calm
Laboratory Results
-
07/05/25 13:55
07/05/25 13:55
Laboratory Results
Total Bilirubin 0.7 mg/dl (0.2-1.3) 07/05/25 13:55
AST 15 U/L (14-36) 07/05/25 13:55
ALT < 10 U/L (0-35) 07/05/25 13:55
Alkaline Phosphatase 106 U/L (38-126) 07/05/25 13:55
EKG 07/05/2025: NSR
CT Head noncontrast ordered for 07/05/2025
Impression/Plan
-
IMPRESSION:
84 yo F PMH dementia, Parkinson disease, CVA, seizure disorder (reported on chart), diabetes mellitus, hypothyroidism, essential HTN, HLD, and GERD p/w altered mental status. Per documentation, HF unspecified, myasthenia gravis, and atrial
fibrillation are also listed.
DDx for altered mental status is broad and includes several etiologies: seizure, post-ictal status, CVA, dementia progression, toxic/metabolic encephalopathy, electrolyte abnormalities, among others.
This patient was noted to be nonverbal per documentation, but then became conversant during my encounter.
The most likely etiology is seizure, given the chart reported history of seizure disorder. However, it is unclear if she has seizure disorder, perhaps, she was previously on an anti-seizure medication and then was subsequently taken off.
CVA appears less likely, but remains on the ddx. Her potential confusion could be attributed to a post-ictal status. She also has no focal neurological deficits.
An expanding subdural hematoma should also be considered due to her recent fall history, even though prior noncontrast Head CT were negative.
Progression of her dementia is also a possibility
electrolytes within normal limits reassures against encephalopathy.
Given resident at [facility], unlikely to be taking medications/drugs inappropriately
PLAN:
altered mental status
hx of seizure disorder and CVA (on chart review)
- most suspicious for a seizure
- admit to telemetry
- f/u CT head noncontrast
- continue cerebell monitor and EEG monitoring
- will neuro consult in the AM
- consider MRI w/wo brain after discussing with neuro
- UA clean catch in AM
- UA tox screen in AM (low suspicion, but evaluate if she may have been mistakenly administered medications)
- lipid panel in AM
- after speech clears for swallow, diabetic diet ordered
- PT/OT ordered - please note patient has FRACTURE OF RIGHT WRIST when doing physical therapy
Parkinson disease
dementia
- continue carbidopa-levodopa
- continue ropinirole
T2DM
- low resistance SSI ordered
- continue AM and PM insulin glargine
- holding metformin
Essential HTN
- continue lisinopril
HLD
- no statin on med review
- lipid panel ordered
Hypothyroidism
- continue levothyroxine
GERD
- continue omeprazole
Other chronic issues
- chart review reports: atrial fibrillation, CHF-unspecified, and myasthenia gravis
- however medication review does not show anticoagulation (beyond clopidogrel), or meds for myasthenia gravis. furosemide, lisinopril, and dapagliflozin can be considered for CHF.
Code status: Full
Diet: diabetic after cleared by speech
Disposition: pending clinical workup, to [facility]
--- NOTE | 2025-07-05 20:35 | PTCARENOTE ---
Patient received from ED via stretcher accompanied by ED staff. AAOX2 - disoriented to place. Pulled over to bed by staff. VSS w/o complaints of pain. Placed on tele. Seizure pads placed on bed. Pt oriented to room with call villagran within reach.
[2025-07-05] MEDS: REQUIP 0.5 MG PO (21:29)
[2025-07-05] MEDS: SINEMET 25-100 2 TABLET PO (21:29)
[2025-07-05] MEDS: REFRESH EYE DROPS (PF) 1 DROPS BOTH EYES (21:29)
[2025-07-05] MEDS: PROTONIX 40 MG PO (21:29)
[2025-07-05 21:39] LABS: Glucose - Point of Care 76 mg/dl (70-99)
[2025-07-05 23:02] LABS: Glucose - Point of Care 100 mg/dl (70-99)
[2025-07-06] VITALS (7 sets, daily range): BP systolic 91–147; BP diastolic 47–75; PULSE 75; O2SAT 100; BMI 24.6
--- NOTE | 2025-07-06 03:00 | DOWNTIME ---
There was a [employer] Downtime on 07/06/2025 from 0100 to 07/06/2025 at 0255. Downtime documentation of patient's care, including medication administrations, has been reconciled in the electronic record per guidelines. Refer to the
patient's paper chart under the miscellaneous tab to see printed paper medication records and downtime forms.
[2025-07-06] MEDS: SYNTHROID 75 MCG PO (05:58)
--- NOTE | 2025-07-06 07:18 | W.PN.HOSP.TC ---
Addendum entered and electronically signed by La Nena Sam MD 07/06/25 17:50:
I saw and evaluated the patient independently. I reviewed and discussed the resident�s note and agree with findings and plan as documented by Dr. Florian.
GENERAL: well developed, well nourished, female in no apparent distress--Ceribell monitor in place
HEENT: NC/AT
HEART: regular rate and rhythm, +S1, +S2
LUNGS : clear to auscultation bilaterally
ABDOM: soft, nontender, nondistended, + bowel sounds
EXT: no cyanosis, clubbing, or edema--right wrist with splint
NEUROLOGIC: apparent dementia--tremors and delayed response c/w Parkinson's
altered mental status--pt was not responding to the staff at [facility]--per chart review pt with hx of stroke and seizures--suspect seizure with post ictal state (unfortunately Ceribell monitor was not placed for at least 1/2 hour after I requested
the ED to place, by that time, pt was alert and talking) so likely the result is negative for seizure (cannot find documentation in the chart)--other possibilities include Parkinson's and progressive dementia (wax and wane)- head CT neg, doubt
infection and UA was NOT a clean catch (nevertheless she received IV rocephin in ED)--did not give further ABX--drug mixup at [facility] a possibility but unlikely--apprec neuro
recent right wrist fracture--cannot bear weight on right wrist--PT/OT
Parkinson disease/dementia- continue carbidopa-levodopa- continue ropinirole
Type 2 DM-- low resistance SSI ordered- continue AM and PM insulin glargine- holding metformin for now--would like to see better trending of sugars
Essential HTN- continue lisinopril
HLD- no statin on med review- lipid panel with elevated LDL 131--statin started
Hypothyroidism- continue levothyroxine--TSH WNL
GERD- continue omeprazole
Other chronic issues
- chart review reports: paroxysmal atrial fibrillation (not on anticoagulation), CHF-unspecified, and myasthenia gravis (no meds on med list)
Code status-- Full code--pt has a guardian
DVT proph
OK for d/c
Original Note:
Today's Communication/Plan
-
discharge today to [facility]
Assessment / Plan
Assessment / Plan
IMPRESSION:
84 yo F PMH dementia, Parkinson disease, CVA, seizure disorder (reported on chart), diabetes mellitus, hypothyroidism, essential HTN, HLD, and GERD p/w altered mental status. Per documentation, CHF unspecified, myasthenia gravis, and atrial
fibrillation are also listed.
PLAN:
altered mental status
hx of seizure disorder and CVA (on chart review)
- per neuro, suspicious for possible convulsive syncope secondary to Parkinson
- per neuro, additional imaging inpatient likely not needed
- lipid panel showed elevated LDL
- will start rosuvastatin 10mg
- after discussion with neuro, okay to discharge and follow outpatient
Parkinson disease
dementia
- continue carbidopa-levodopa
- continue ropinirole
T2DM
- continue AM and PM insulin glargine
- resume metformin
Essential HTN
- continue lisinopril
HLD
- no statin on med review
- will start rosuvastatin 10mg
Hypothyroidism
- continue levothyroxine
GERD
- continue home omeprazole
She also takes clopidogrel, lisinpril, lasix which will be continued
Other chronic issues
- chart review reports: atrial fibrillation, CHF-unspecified, and myasthenia gravis
- however medication review does not show anticoagulation (beyond clopidogrel), or meds for myasthenia gravis. lisinopril, and dapagliflozin can be considered as part of treatment regimen for CHF.
Code status: Full
Diet: diabetic after cleared by speech
Disposition: pending clinical workup, to [facility]
Anticipated Discharge: Today
Subjective/Interval History
-
Date of Service: July 06, 2025
no overngiht events
Objective Data
-
Labs:
Laboratory Results
07/06/25
06:44
WBC Pending
Hgb Pending
Hct Pending
Plt Count Pending
Sodium Pending
Potassium Pending
Chloride Pending
Carbon Dioxide Pending
BUN Pending
Creatinine Pending
Glucose Pending
Calcium Pending
Total Bilirubin Pending
AST Pending
ALT Pending
Alkaline Phosphatase Pending
A1c 7.8%
Lipid panel: triglcyerides 172, choelsterol 218; LDL 131; HDL 53
TSH 2.68
glucose levels 80s
Vital Signs:
Vital Signs
Temp Pulse Resp BP Pulse Ox
98.3 F 82 18 140/75 96
07/06/25 03:48 07/06/25 03:48 07/06/25 03:48 07/06/25 03:48 07/06/25 03:48
[2025-07-06 07:35] LABS: Hematocrit 37.9 % (37.0-47.0); Hemoglobin 11.9 g/dL (12.0-16.0); Mean Corp Hgb Conc. 31.4 g/dL (33.0-37.0); Mean Corpuscular Volume 96.7 fL (81.0-99.0); Platelet Count 206 10^3/uL (130-400); Red Cell Dist. Width 14.0 % (11.5-14.5)
[2025-07-06 08:08] LABS: Glucose - Point of Care 80 mg/dl (70-99)
[2025-07-06 08:18] LABS: ALT (SGPT) < 10 U/L (0-35); AST (SGOT) 15 U/L (14-36); Albumin 3.7 g/dl (3.5-5.0); Alkaline Phosphatase 92 U/L (38-126); Blood Urea Nitrogen 19 mg/dl (7-17); Calcium 8.8 mg/dl (8.4-10.2); Carbon Dioxide 28 mmol/L (22-30); Chloride 105 mmol/L (98-107); Estimated Creatinine Clearance 59 ml/min; Glucose 84 mg/dl (70-99); HDL Cholesterol 53 mg/dl; LDL Cholesterol, Calculated 131 mg/dl; Potassium 3.9 mmol/L (3.5-5.1); Sodium 136 mmol/L (135-145); Total Protein 6.4 g/dl (6.3-8.2); Very Low Density Lipoprotein 34 mg/dl (0-30); eGFR > 60.00
[2025-07-06] MEDS: SINEMET 25-100 2 TABLET PO ×2 (08:43→16:36)
[2025-07-06] MEDS: VITAMIN D3 (cholecalciferol) 50 MCG PO (08:43)
[2025-07-06] MEDS: REQUIP 0.5 MG PO ×2 (08:43→16:36)
[2025-07-06] MEDS: PLAVIX 75 MG PO (08:43)
[2025-07-06] MEDS: LASIX 20 MG PO (08:43)
[2025-07-06] MEDS: VITAMIN B-12 1000 MCG PO (08:43)
[2025-07-06] MEDS: ZESTRIL 20 MG PO (08:43)
[2025-07-06] MEDS: FARXIGA 10 MG PO (08:44)
[2025-07-06] MEDS: FLUSH (NSS) 1 FLUSH IV (08:44)
[2025-07-06] MEDS: REFRESH EYE DROPS (PF) 1 DROPS BOTH EYES (08:44)
[2025-07-06] MEDS: LANTUS 0.15 UNITS SC (08:44)
[2025-07-06 08:46] LABS: Glycohemoglobin (HgbA1c) 7.8 % (4.0-5.9)
--- NOTE | 2025-07-06 11:46 | PTOTSP ---
Dysphagia Evaluation
Patient has acute on chronic risk factors for dysphagia (i.e., admission with AMS and concern for possible seizures; Parkinson's, dementia, CVA, CHF, GERD). Patient has no signs concerning for aspiration complications and is appropriate to initiate
oral diet below. Will complete cognitive linguistic testing as appropriate pending etiology of AMS.
Recommend:
1. Regular, Thin Liquids
2. Medications as best tolerated
3. Strategies: partial assist/supervision, single sips, reflux precautions
4. Brief dysphagia follow up. Cognitive linguistic evaluation if appropriate.
[2025-07-06 12:14] LABS: Glucose - Point of Care 128 mg/dl (70-99)
--- NOTE | 2025-07-06 12:23 | CON.NEURO4 ---
Addendum entered and electronically signed by Charles Kenney MD 07/06/25 13:10:
Studies reviewed.
I have personally examined the patient. I reviewed and agree with the FLOOR COVERER's Note.
My addenda:
Awake, interactive. No acute distress.
Speech intact, with reduced output.
Follows 1-step requests w/ slow completion. No tremor.
Extra-ocular movements grossly intact.
Facial movements full and symmetric. Hearing intact to normal conversational volume.
Normal UE movements bilaterally.
Neck: full ROM.
Chest: no dyspnea
Heart: no JVD
Ext: (-) Clubbing, (-) Cyanosis, (-) Edema
IMPRESSIONS/RECOMMENDATIONS:
Abrupt onset of change in mental status in a patient with significant dementia, parkinsonism, and stroke
Unclear etiologies for the patient's symptomatology, check orthostatics
Continue current medications
Consider prolonged cardiac monitoring as outpatient
Will continue to follow as outpatient.
Original Note:
Consultation - Neurology 4
-
CONSULTING PHYSICIAN: Charles Kenney MD
REFERRING PHYSICIAN: Hospitalists/Dr. Chiqui MD Resident
DICTATED BY: RAFAEL Cantu
DATE/TIME OF REQUEST: 07/06/25
DATE/TIME OF CONSULTATION: 07/06/25
Reason for Consultation: Altered mental status
History of Present Illness:
This is an 84-year-old right-handed female who has presented to the hospital on 07/05/25 with report of unresponsiveness. Patient is followed by our outpatient Neurology service for Parkinson's disease, dementia, and ischemic stroke. She has been
living in a memory care unit since 2021.
From previous evaluation by RAFAEL Womack on 10/06/24:
'03/31/2023
Patient seen in the office today with java security engineer. Patient reports her tremor and stiffness are about 25% improved since increasing carbidopa/levodopa at her last appointment with Dr. Kenney. She did do a little bit of physical therapy she is unsure if
she was discharged or if she decided not to continue. She does admit to being more sedentary than she should be. She has only been at [facility] for about 8 months and has not been too involved in many of the activities. She arrived today in a
wheelchair. She does report she can ambulate with a rollator. She did have a fall in the bathroom at [facility] and was evaluated in the Emergency Department 03/03/2023, she was discharged back to home with no fractures. She denies any hallucinations.
She denies any adverse side effects of medication.
06/13/2023
Patient seen in the office with a java security engineer. She continues taking carbidopa levodopa 2 tablets 25/100, 3 times a day. She has not really gotten acclimated at [facility] and has been participating in activities. She reports her memory is stable. she
has no new falls. She has no hallucinations. Overall she has no new complaints.�
(10/10/2023)
Patient seen in the office today with java security engineer. She continues to take carbidopa/levodopa 2 tablets 25/100 mg 3 times a day. She continues to participate in activities. She has no new falls. No hallucinations. She is primarily wheelchair-bound. She
offers no complaints.
(10/06/2024)
Patient seen in the office today with her java security engineer. Parkinson symptoms have been stable she continues on ropinirole and carbidopa levodopa. No adverse side effects. She is has not had any falls. She does not complain of hallucinations. She is
participating in activities at [facility] as well as exercise classes. She still has been getting physical therapy.'
Yesterday morning (07/05/25), patient was found by detention staff to be unresponsive. She had her eyes open and was tracking but was not speaking. Her blood sugar was 76. She was last seen at her baseline the night before. CT head was obtained
on arrival and is negative for any acute abnormalities. Patient began speaking again at some point while in the ER. Ceribell monitor was placed after patient returned to her baseline and was negative for status. Today (07/06/25), patient offers no
complaints and appears to be at her baseline.
Past Medical History: Parkinson's disease, dementia, left frontoparietal ischemic stroke 2009, HTN, HLD, DM, hypothyroidism, ambulatory dysfunction
Surgical History: R lumpectomy, excision left breast w/ lymph node biopsy, oophorectomy
Family History: Father- stroke.
Social History: Former smoker. Occasional alcohol. No illicit drug use.
Allergies: Pollen extracts.
Home Medications: See below.
Review of Symptoms:
Patient denies any fever, headache, chest pain, shortness of breath, GI or symptoms.
�Per the HPI.�All systems are reviewed negative except above.
Physical Exam:
The patient is afebrile, abdomen is nondistended, breathing is unlabored, skin is warm and dry.
Neurologic Examination:
The patient is awake, distracted. Confused, knows name only. She is able to follow very simple one-step commands and answer some questions appropriately. There is moderate aphasia. No dysarthria. On cranial nerve assessment, pupils are 3 mm
bilateral, round and reactive to light and accommodation. Visual llanos appear grossly intact. Extraocular movements are intact. There is no facial asymmetry. Hearing is intact bilaterally to normal conversation volume. Tongue palate and uvula are
midline. Motor strengths are 4/5 bilateral upper and lower extremities on medical research [place] scale. There is no drift or involuntary movement noted. JACKIE double simultaneous due to aphasia/confusion. Coordination is intact by finger to nose
bilaterally.
Lab Results: See below.
Neuro Imaging:
1. CT Head 07/05/25: No acute intracranial pathology. Moderate atrophy. Stable. Moderate periventricular small vessel ischemic disease. Stable. Severe chronic left maxillary sinusitis with associated bony changes and probable nasal polyps. Stable
from 05/27/2025
Differentials for the patient's presentation include:
1. Transient change in mental status; uncertain etiology, possibly due to a 'freezing episode' in the setting of advanced dementia, Parkinson's disease, and toxic metabolic encephalopathy. Very low concern for seizure or stroke producing symptoms.
Patient has the following risk factors for their symptoms: PD, dementia
IV Tenecteplase/IAT candidacy: Not a candidate due to low concern for stroke/TIA.
Recommendations:
-Continue home carbidopa-levodopa and ropinirole.
-Continue home clopidogrel 75mg daily.
-Infectious workup per primary team.
-Do not see a role for further neurological imaging at this time.
-Neurological checks per unit guidelines.
-DVT prophylaxis.
Discussed patient care with: Dr. Kenney, the patient
Vital Signs and Labs
-
Vital Signs and Labs:
Vital Signs
Temp Pulse Resp BP Pulse Ox
97.9 F 73 16 97/47 100
07/06/25 11:44 07/06/25 11:44 07/06/25 11:44 07/06/25 11:44 07/06/25 11:44
Lab Results
07/06/25 06:44
07/06/25 06:44
Sodium 136 mmol/L (135-145) 07/06/25 06:44
Potassium 3.9 mmol/L (3.5-5.1) 07/06/25 06:44
BUN 19 mg/dl (7-17) H 07/06/25 06:44
Glucose 84 mg/dl (70-99) 07/06/25 06:44
Calcium 8.8 mg/dl (8.4-10.2) 07/06/25 06:44
LDL Cholesterol, Calc 131 mg/dl 07/06/25 06:44
Medications
-
Active Medications
Generic Name Dose Route Start Last Admin
Trade Name Freq PRN Reason Stop Dose Admin
Acetaminophen 1,000 mg 07/05/25 20:26
Acetaminophen 500 Mg Tablet PO 08/02/25 20:25
TIDPRN PRN
mild pain/ temp>100.5
Artificial Tears 1 drops 07/05/25 22:00 07/06/25 08:44
Artificial Tears Pf (Refresh) 10 Drop Droperette BOTH EYES 08/02/25 21:59 1 drops
BID ROSIO Administration
Carbidopa/Levodopa 2 tablet 07/05/25 22:00 07/06/25 08:43
Carbidopa (25 Mg)/Levodopa (100 Mg) Regular Release Tablet PO 08/02/25 21:59 2 tablet
TID ROSIO Administration
Cholecalciferol 50 mcg 07/06/25 08:00 07/06/25 08:43
Cholecalciferol (Vitamin D3) 50 Mcg Tablet (2,000 Units) PO 08/03/25 07:59 50 mcg
DAILY ROSIO Administration
Clopidogrel Bisulfate 75 mg 07/06/25 08:00 07/06/25 08:43
Clopidogrel 75 Mg Tablet PO 08/03/25 07:59 75 mg
DAILY ROSIO Administration
Cyanocobalamin 1,000 mcg 07/06/25 08:00 07/06/25 08:43
Cyanocobalamin (Vitamin B-12) 500 Mcg Tablet PO 08/03/25 07:59 1,000 mcg
DAILY ROSIO Administration
Dapagliflozin 10 mg 07/06/25 08:00 07/06/25 08:44
Dapagliflozin (Farxiga) 10 Mg Tablet PO 08/03/25 07:59 10 mg
DAILY ROSIO Administration
Dextrose 12.5 grams 07/05/25 21:00
Dextrose 50% (0.5 Grams/Ml) 50 Ml Syringe IV 08/02/25 20:59
[id number] PRN
hypoglycemia
Protocol
Furosemide 20 mg 07/06/25 08:00 07/06/25 08:43
Furosemide 20 Mg Tablet PO 08/03/25 07:59 20 mg
DAILY ROSIO Administration
Glucagon 1 mg 07/05/25 21:00
Glucagon 1 Mg Vial IM 08/02/25 20:59
PRN PRN
hypoglycemia - no IV access
Protocol
Insulin Glargine 12 units/ 0.12 mls @ 0 mls/hr 07/05/25 22:00 07/05/25 21:45
Device SC 08/02/25 21:59 Not Given
On Hold: 07/05/25 22:04 HS ROSIO
Resume: 07/06/25 21:50 As Directed
Insulin Glargine 15 units/ 0.15 mls @ 0 mls/hr 07/06/25 08:00 07/06/25 08:44
Device SC 08/03/25 07:59 0.15 mls
DAILY ROSIO Administration
As Directed
Ibuprofen 400 mg 07/05/25 21:05
Ibuprofen 400 Mg Tablet PO 08/02/25 21:04
TIDPRN PRN
mod pain
Insulin Aspart 0 units 07/06/25 07:30 07/06/25 12:20
Insulin Aspart Low Resistance 300 Units/3 Ml Pen.Injctr SC 08/03/25 07:29 Not Given
AC ROSIO
Protocol
Levothyroxine Sodium 75 mcg 07/06/25 06:00 07/06/25 05:58
Levothyroxine 75 Mcg Tablet PO 08/03/25 05:59 75 mcg
DAILY @ 0600 ROSIO Administration
Lisinopril 20 mg 07/06/25 08:00 07/06/25 08:43
Lisinopril 20 Mg Tablet PO 08/03/25 07:59 20 mg
DAILY ROSIO Administration
Pantoprazole Sodium 40 mg 07/05/25 21:00 07/05/25 21:29
Pantoprazole 40 Mg Delayed Release Tablet PO 08/02/25 20:59 40 mg
QPM ROSIO Administration
Ropinirole HCl 0.5 mg 07/05/25 22:00 07/06/25 08:43
Ropinirole 0.25 Mg Tablet PO 08/02/25 21:59 0.5 mg
TID ROSIO Administration
Sodium Chloride 0 flush 07/05/25 21:00 07/06/25 08:44
Sodium Chloride 0.9% (Flush) Syringe IV 08/02/25 20:59 1 flush
PER PROTOCOL ROSIO Administration
Home Medications
�Medication �Instructions �Recorded
carbidopa 25 mg-levodopa 100 mg 2 tab PO TID Neurological Condition 03/03/23
tablet
cholecalciferol (vitamin D3) 50 50 mcg PO DAILY Supplement 03/03/23
mcg (2,000 unit) capsule (Vitamin
D3)
clopidogrel 75 mg tablet (Plavix) 75 mg PO DAILY Blood Clot 03/03/23
Prevention/Tx
cyanocobalamin (vitamin B-12) 1,000 mcg PO DAILY Supplement 03/03/23
1,000 mcg tablet (Vitamin B-12)
fluticasone propionate 50 1 spray intranasal DAILY Allergies 03/03/23
mcg/actuation nasal
spray,suspension
levothyroxine 75 mcg tablet 75 mcg PO DAILY Thyroid 03/03/23
omeprazole 40 mg capsule,delayed 40 mg PO QPM Gastrointestinal Issue 03/03/23
release
dapagliflozin propanediol 10 mg 10 mg PO DAILY Diabetes 09/19/24
tablet (Farxiga)
furosemide 20 mg tablet 20 mg PO DAILY Fluid 09/19/24
Retention/Swelling
glucosamine HCl 1,500 mg tablet 1,500 mg PO QPM Supplement 09/19/24
insulin glargine 100 unit/mL (3 15 unit SC DAILY Diabetes 09/19/24
mL) subcutaneous pen (Lantus
Solostar U-100 Insulin)
metformin 500 mg tablet 500 mg PO BID Diabetes 09/19/24
peg 400-propylene glycol 0.4 %-0.3 1 drp BOTH EYES BID Eye Condition 09/19/24
% eye drops (Systane Ultra)
pumpkin seed extract-soy germ 300 1 cap PO BID Supplement 09/19/24
mg capsule (Azo Bladder Control)
vit C 250 mg-vit E 90 mg-zinc 40 1 tab PO BID Supplement 09/19/24
mg-copper 1 [id number]
capsule (PreserVision AREDS-2)
lisinopril 20 mg tablet 20 mg PO DAILY Heart 02/12/25
Disease/Condition
acetaminophen 500 mg tablet 1,000 mg PO TID Pain 07/05/25
(Tylenol Extra Strength)
ibuprofen 200 mg tablet (Advil) 400 mg PO TID Pain 07/05/25
insulin glargine 100 unit/mL (3 12 unit SC HS Diabetes 07/05/25
mL) subcutaneous pen (Lantus
Solostar U-100 Insulin)
ropinirole 0.5 mg tablet 0.5 mg PO TID Neurological 07/05/25
Condition
--- NOTE | 2025-07-06 14:02 | W.RAPID.EEG ---
Rapid EEG
-
Procedure Date: 07/05/25
Patient Status: Emergency Room
Results:
Impression::
Absence of status epilepticus
Patient was awake and drowsy
Recording Information:
Diagnostic Recording Time: 00:58:28 (58 minutes)
Recording 1:
Start Time: Jul 05, 2025 17:19 PM End Time: Jul 05, 2025 18:17 PM
Recording Technique: This EEG was obtained using a 10 lead, 8 channel system positioned circumferentially without any parasagittal coverage (rapid EEG). Computer selected EEG is reviewed as well as background features and all clinically significant
events. Clarity algorithm utilized and implemented to provide analysis of underlying activity and seizure detection used to facilitate reading. ICD-10 Code TS90G69
Clinical History: EVELYN BRAXTON is a 84 year old Undifferentiated AMS patient undergoing EEG to screen for non-convulsive status epilepticus.
--- NOTE | 2025-07-06 14:43 | CM ---
Addendum entered by Nahomi Hilario 07/06/25 15:22:
PT script obtained to be sent with discharge packet.
Addendum entered by Nahomi Hilario 07/06/25 15:15:
Spoke with [facility] and [facility]. They are aware of DC today. Guardian made aware.
Addendum entered by Nahomi Hilario 07/06/25 14:50:
Pt's guardian notified of potential discharge today.
Original Note:
Possible DC to [facility] (memory care). Pending neurology consult
PT rec reeturn to [place] [facility] with PT. Will need to have PT scripts upon DC
Report: [phone] and ask for patient's nurse

Plan: return to [facility] with PT
--- NOTE | 2025-07-06 16:18 | PTCARENOTE ---
Pt awake and alert, oriented x3 but very forgetful. ROQUE slowly. NIHSS 3. VSS. Telemetry:NSR. On room air- pulse ox 100%, no SOB noted. Abd large, soft, moi PO; appetite fair. Voids on BSC; also incont large amts urine. Resting in chair at
present. Awaiting DC back to [facility] later this shift. Will continue to monitor.
--- NOTE | 2025-07-06 17:09 | W.DCSUMMARY ---
Addendum entered and electronically signed by La Nena Sam MD 07/07/25 06:58:
Read, reviewed, and agree. See same day progress note for additional details. Time spent coordinating care, DC planning, review of DC plan of care with resident, transition of care, review of records in EMR, med rec, consults, notes, d/w
consultants, nursing, family, and CM = 31 minutes
Original Note:
Discharge Summary
Discharge Data
Date of Admission: 07/05/25
Date of Discharge: 07/06/25
-
Pending Results: No
Hospital Course
Discharging Physician : Dr. La Nena Sam; Dr. Ace Florian
Disposition : to [facility]
Primary care physician : Latrell Sue Sr.
Principal Discharge diagnosis : Altered mental status likely due to possible convulsive syncope secondary to Parkinson's
Chronic Discharge diagnosis : dementia, left frontoparietal ischemic stroke 2008, seizure disorder (reported on chart), diabetes mellitus, hypothyroidism, essential HTN, HLD, and GERD
Hospital Course :
84 yo F PMH dementia, Parkinson disease, CVA, seizure disorder (reported on chart), diabetes mellitus, hypothyroidism, essential HTN, HLD, and GERD p/w altered mental status. Per documentation, HF unspecified, myasthenia gravis, and atrial
fibrillation are also listed.
Patient is a poor historian
Per chart review, she was nonverbal but visually attentive to staff at the [facility] this morning. Her last known normal is likely yesterday evening during dinner. During our encounter, the patient was noted to be conversant. does not recall
preceding events. However, she denies headache, dizziness, lightheadeness, changes in vision, chest pain, dyspnea, nausea/vomiting/diarrhea, abdominal pain, constipation, dysuria. Her PMH is notable for multiple falls (3 documented visits to the ED
over the past 3 months, CT head noncontrast were all negative for bleed during those instances).
CT head noncontrast this admission did not show evidence of bleed. She also became conversant on her own. Electrolytes were within normal limits.
The following problems were addressed during this admission:
Altered mental status
hx of seizure disorder and CVA (on chart review)
- per neuro, suspicious for possible convulsive syncope secondary to Parkinson
- CT head noncontrast did not show evidence of intracranial bleed
- per neuro, additional imaging (MRI) inpatient likely not needed
- after discussion with neuro, okay to discharge and follow outpatient
- PT/OT will be doing in-house PT at [facility].
Parkinson disease
dementia
- continue carbidopa-levodopa
- continue ropinirole
T2DM
- continue AM and PM insulin glargine
- continue metformin
Essential HTN
- continue lisinopril
HLD
- lipid panel showed elevated LDL; LFTs normal this admission
- started rosuvastatin 10mg
Hypothyroidism
- levothyroxine
GERD
- omeprazole
Other chronic issues
- chart review reports: atrial fibrillation, CHF-unspecified, and myasthenia gravis
Important imaging findings :
CT Head noncontrast 07/05/2025
IMPRESSION: No acute intracranial pathology.
Moderate atrophy. Stable
Moderate periventricular small vessel ischemic disease. Stable
Severe chronic left maxillary sinusitis with associated bony changes and probable nasal polyps. Stable from 05/27/2025
Procedure findings :
EKG 07/05/2025
Vent. Rate : 67 BPM Atrial Rate : 67 BPM
P-R Int : 176 ms QRS Dur : 90 ms
QT Int : 434 ms P-R-T Axes : 49 19 17 degrees
QTcB Int : 458 ms
NORMAL SINUS RHYTHM
NORMAL ECG
Discharge Plan
-
Patient Disposition: Custodial/SNF
Discharge Diagnosis/Procedures: Possible convulsive syncope secondary to Parkinson's, dementia, CVA, seizure disorder (reported on chart), diabetes mellitus, hypothyroidism, essential HTN, HLD, and GERD
Condition: Fair
Diet: Diabetic, Carb Controlled
Activity: With assistance
Additional Activity: In house PT at [facility]
Driving Restrictions: No driving
Other Services: PT
Referrals:
Charles Kenney MD [Active, Neurology] - in one to two weeks
Latrell Sue Sr., MD [Family Provider, Family Practice]
Additional Discharge Medication Instructions: Please resume your home medications.
Your cholesterol levels are high and you are being asked to start rosuvastatin 10mg.
Please follow-up with your PCP to recheck LFTs in approximately 1-2 months.
Prescriptions:
New
rosuvastatin 10 mg tablet
10 mg PO DAILY Qty: 30 0RF
Continued
cyanocobalamin (vitamin B-12) [Vitamin B-12] 1,000 mcg Tablet
1,000 mcg PO DAILY
clopidogrel [Plavix] 75 mg Tablet
75 mg PO DAILY
omeprazole 40 mg Capsule,Delayed Release(Dr/Ec)
40 mg PO QPM
levothyroxine 75 mcg Tablet
75 mcg PO DAILY
carbidopa-levodopa 25-100 mg Tablet
2 tab PO TID
fluticasone propionate 50 mcg/actuation [place],Suspension
1 spray INTRANASAL DAILY
cholecalciferol (vitamin D3) [Vitamin D3] 50 mcg (2,000 unit) Capsule
50 mcg PO DAILY
metformin 500 mg Tablet
500 mg PO BID
furosemide 20 mg Tablet
20 mg PO DAILY
Systane Ultra 0.4-0.3 % Drops
1 drp BOTH EYES BID
insulin glargine [Lantus Solostar U-100 Insulin] 100 unit/mL (3 mL) Insulin Pen
15 unit SC DAILY
glucosamine HCl 1,500 mg Tablet
1,500 mg PO QPM
PreserVision AREDS-2 250-90-40-1 mg Capsule
1 tab PO BID
dapagliflozin propanediol [Farxiga] 10 mg Tablet
10 mg PO DAILY
Azo Bladder Control 300 mg Capsule
1 cap PO BID
lisinopril 20 mg Tablet
20 mg PO DAILY
acetaminophen [Tylenol Extra Strength] 500 mg Tablet
1,000 mg PO TID
ropinirole 0.5 mg Tablet
0.5 mg PO TID
ibuprofen [Advil] 200 mg Tablet
400 mg PO TID
insulin glargine [Lantus Solostar U-100 Insulin] 100 unit/mL (3 mL) Insulin Pen
12 unit SC HS
Discharge Orders:
Discharge Patient (As Directed); Ordered 07/06/25
Ordered By: Ace Florian
Discharge Date and Time
Print Language: FAROESE
[2025-07-06 17:11] LABS: Glucose - Point of Care 119 mg/dl (70-99)
[2025-07-06] MEDS: PROTONIX 40 MG PO (17:29)
== END 2025-07-06 19:46 | DRG 101 ==
LOC: 4 EAST ACU 19:05
PROVIDERS: ADMITTING PHYSICIAN Internal Medicine; CONSULT PHYSICIAN Psychiatry & Neurology Neurology; EMERGENCY PHYSICIAN Student in an Organized Health Care Education/Training Program; FAMILY PHYSICIAN Family Medicine
PROC: XX20X89 Monitoring of Brain Electrical Activity, Computer-aided Detection and Notification, New Technology Group 9 (ICD-10-PCS; 2025-07-06)
DX: G40.909 Epilepsy, unspecified, not intractable, without status epilepticus (principal); G20.A1 Parkinson's disease without dyskinesia, without mention of fluctuations; F02.80 Dementia in other diseases classified elsewhere, unspecified severity, without behavioral disturbance, psychotic disturbance, mood disturbance, and anxiety; Z86.73 Personal history of transient ischemic attack (TIA), and cerebral infarction without residual deficits; E03.9 Hypothyroidism, unspecified; I11.0 Hypertensive heart disease with heart failure; E78.00 Pure hypercholesterolemia, unspecified; K21.9 Gastro-esophageal reflux disease without esophagitis; G70.00 Myasthenia gravis without (acute) exacerbation; I48.0 Paroxysmal atrial fibrillation; E11.9 Type 2 diabetes mellitus without complications; J32.0 Chronic maxillary sinusitis; J33.9 Nasal polyp, unspecified; S62.101A Fracture of unspecified carpal bone, right wrist, initial encounter for closed fracture; Z79.4 Long term (current) use of insulin; Z79.84 Long term (current) use of oral hypoglycemic drugs; Z79.890 Hormone replacement therapy; Z82.3 Family history of stroke; Z87.891 Personal history of nicotine dependence; Z99.3 Dependence on wheelchair
CPT/HCPCS: 70450; 80053; 80061; 81003; 81015; 82962; 83036; 84443; 85025; 85027; 87070; 87086; 92610; 93005; 95812; 96374; 97163; 97167; 99285

== ENCOUNTER 2025-07-09 19:18 | Emergency (ER) | payer MEDICARE, OTHER, SELFPAY ==
[2025-07-09 19:23] VITALS: BP 118/57
[2025-07-09 20:00] VITALS: BP 127/62
[2025-07-09 20:02] LABS: Hematocrit 35.4 % (37.0-47.0); Hemoglobin 11.6 g/dL (12.0-16.0); Mean Corp Hgb Conc. 32.8 g/dL (33.0-37.0); Mean Corpuscular Volume 93.9 fL (81.0-99.0); Nucleated Red Blood Cells % 0 %; Platelet Count 224 10^3/uL (130-400); Red Cell Dist. Width 14.0 % (11.5-14.5)
[2025-07-09 20:18] LABS: Blood Urea Nitrogen 28 mg/dl (7-17); Calcium 9.5 mg/dl (8.4-10.2); Carbon Dioxide 24 mmol/L (22-30); Chloride 108 mmol/L (98-107); Glucose 208 mg/dl (70-99); Sodium 138 mmol/L (135-145); eGFR > 60.00
[2025-07-09] MEDS: NSS 1000 IV (20:53)
[2025-07-09 21:00] VITALS: BP 101/47
[2025-07-09 21:26] VITALS: BP 127/69
--- NOTE | 2025-07-09 21:41 | ED.GENMED ---
History of Present Illness
General
Chief Complaint: Fatigue
Time Seen by Provider: 07/09/25 20:19
History of Present Illness
History of Present Illness:
84-year-old female with history of Parkinson's/dementia, seizure disorder, A-fib, CHF, hypertension, and hyperlipidemia presents to the emergency department for evaluation of fatigue and weakness. Per nursing facility staff she was more sleepy than
normal today and had difficulty getting out of her chair in the evening. On arrival to the ED the patient does not know why she is here. She states that she is tired but she denies any other complaints. She was admitted to this hospital earlier
this week for period of unresponsiveness, this was felt to represent either syncope or seizure related to her Parkinson's.
Past History
Past History
ED Past Medical History: CVA, HTN, Hypercholesterolemia, NIDDM, Hypothyroidism and Other (Parkinson's disease, Headache, Amnesia, UTI)
ED Past Surgical History: Gynecological (Tereso ovaries removed, Left and right Lumpectomy) and Other (Abd surgery with endometriosis, Tereso cataracts)
Social History
Tobacco: Former smoker
Alcohol: Occasional
Drug: None
Personal:
Living: alf
Review of Systems
Review of Systems
Allergies reviewed?: Yes
All Other Systems: ROS reviewed and negative except as documented in HPI and ROS
Phy Exam
Physical Exam
Physical Exam:
GEN: Well appearing, NAD, WDWN
HEENT: Oral mucosa moist, no scleral icterus
Cardiac: Regular rate and rhythm, no murmur
Lung: No respiratory distress, no tachypnea, lungs clear to auscultation bilaterally
MSK: No gross deformity or injuries
Skin: Good color, no pallor or jaundice, no rashes
Neuro: AO x2, moves all extremities freely, globally weak to all 4 extremities however no focal deficit
Psych: Calm, cooperative
Course
Orders/Labs/Results
Orders:
Orders
07/09/25 19:51
Basic Metabolic Panel Urgent
Complete Blood Count/With Diff Urgent
07/09/25 20:50
0.9% Sodium Chloride 1000 ml [Nss] 1,000 ml IV BOLUS
Abnormal Lab Results
07/09/25
19:51
RBC 3.77 L 10^6/uL
(4.20-5.40)
Hgb 11.6 L g/dL
(12.0-16.0)
Hct 35.4 L %
(37.0-47.0)
MCHC 32.8 L g/dL
(33.0-37.0)
MPV 11.6 H fL
(7.4-10.4)
Absolute Monos (auto) 0.8 H 10^3/uL
(0.1-0.6)
Monocytes % 10.6 H %
(1.7-9.3)
Chloride 108 H mmol/L
(98-107)
BUN 28 H mg/dl
(7-17)
Glucose 208 H mg/dl
(70-99)
07/09/25 19:51
07/09/25 19:51
Vital Signs
Initial and Last Documented VS:
Initial Vital Signs
BP
118/57
07/09/25 19:23
Last Documented Vital Signs
Temp Pulse Resp BP Pulse Ox
97.9 F 78 16 141/70 98
07/09/25 19:37 07/09/25 23:56 07/09/25 23:56 07/09/25 22:00 07/09/25 23:56
MDM/Problems Addressed
MDM/Problems Addressed:
Nursing facility staff reports the patient has been eating and drinking normally other than today. She does appear globally weak but has no focal neurologic deficits. Her labs are reassuring. Prior urinalysis was negative by culture, do not see
indication for repeat UA at this time given that she offers no complaints, and given lack of fever and leukocytosis, there is high probability for asymptomatic bacteriuria. Overall do not see indication for repeat admission to the hospital, feel
she is suitable for discharge home
*Pulse Oximetry
SaO2: 98
Patient hypoxic: no
*Critical Care Note
Total Time (30-74mins, 75-104mins- exclusive of procedures): Not Applicable
ED Attending Note
-
Portions of this chart may have been created with voice recognition software.� Occasional wrong word or��sound alike� substitutions may have occurred due to the inherent limitations of voice recognition software.
Discharge Plan
Departure
Patient Disposition: Home (Routine Discharge)
Date of Disposition: 07/09/25
Time of Disposition: 21:47
Patient with high blood pressure during this ER visit?: No
Discharge Problem:
Fatigue
Instructions: Fatigue (DC)
Prescriptions:
No Action
cyanocobalamin (vitamin B-12) [Vitamin B-12] 1,000 mcg Tablet
1,000 mcg PO DAILY
clopidogrel [Plavix] 75 mg Tablet
75 mg PO DAILY
omeprazole 40 mg Capsule,Delayed Release(Dr/Ec)
40 mg PO QPM
levothyroxine 75 mcg Tablet
75 mcg PO DAILY
carbidopa-levodopa 25-100 mg Tablet
2 tab PO TID
fluticasone propionate 50 mcg/actuation [place],Suspension
1 spray INTRANASAL DAILY
cholecalciferol (vitamin D3) [Vitamin D3] 50 mcg (2,000 unit) Capsule
50 mcg PO DAILY
metformin 500 mg Tablet
500 mg PO BID
furosemide 20 mg Tablet
20 mg PO DAILY
Systane Ultra 0.4-0.3 % Drops
1 drp BOTH EYES BID
insulin glargine [Lantus Solostar U-100 Insulin] 100 unit/mL (3 mL) Insulin Pen
15 unit SC DAILY
glucosamine HCl 1,500 mg Tablet
1,500 mg PO QPM
PreserVision AREDS-2 250-90-40-1 mg Capsule
1 tab PO BID
dapagliflozin propanediol [Farxiga] 10 mg Tablet
10 mg PO DAILY
Azo Bladder Control 300 mg Capsule
1 cap PO BID
lisinopril 20 mg Tablet
20 mg PO DAILY
acetaminophen [Tylenol Extra Strength] 500 mg Tablet
1,000 mg PO TID
ropinirole 0.5 mg Tablet
0.5 mg PO TID
ibuprofen [Advil] 200 mg Tablet
400 mg PO TID
insulin glargine [Lantus Solostar U-100 Insulin] 100 unit/mL (3 mL) Insulin Pen
12 unit SC HS
rosuvastatin 10 mg tablet
10 mg PO DAILY Qty: 30 0RF
Referrals:
Latrell Sue Sr., MD [Family Provider, Family Practice]
Interventions
Interventions:
*Risk Screen - Suicide Last Done: 07/09/25 19:37
*General Assessment Last Done: 07/09/25 19:37
*Neglect/Abuse Screening Last Done: 07/09/25 19:37
*ED- Fall Risk Assessment Last Done: 07/09/25 19:37
*ED COVID-19 Vaccine History Last Done: 07/09/25 19:37
*ED Influenza Vaccine History Last Done: 07/09/25 19:37
*Nursing Disposition Last Done: 07/10/25 01:07
Discharge Date and Time
Discharge Date/Time: 07/10/25 01:13
Print Language: [place]
[2025-07-09 22:00] VITALS: BP 141/70
== END 2025-07-10 01:13 | disposition home or self-care (01) ==
LOC: EMR 19:18
PROVIDERS: EMERGENCY PHYSICIAN Student in an Organized Health Care Education/Training Program; FAMILY PHYSICIAN Family Medicine
DX: R53.1 Weakness (principal); R53.83 Other fatigue; E03.9 Hypothyroidism, unspecified; E11.9 Type 2 diabetes mellitus without complications; E78.00 Pure hypercholesterolemia, unspecified; I11.0 Hypertensive heart disease with heart failure; I50.9 Heart failure, unspecified; F02.80 Dementia in other diseases classified elsewhere, unspecified severity, without behavioral disturbance, psychotic disturbance, mood disturbance, and anxiety; G20.A1 Parkinson's disease without dyskinesia, without mention of fluctuations; G40.909 Epilepsy, unspecified, not intractable, without status epilepticus; I48.91 Unspecified atrial fibrillation; Z86.73 Personal history of transient ischemic attack (TIA), and cerebral infarction without residual deficits; Z87.891 Personal history of nicotine dependence; Z87.440 Personal history of urinary (tract) infections
CPT/HCPCS: 96360; 99284; 80048; 85025